=== PATIENT | male | born 1960 | race Caucasian/White ===

== ENCOUNTER 2020-12-20 10:43 | Outpatient (REF) | payer OTHER, SELFPAY ==
--- OUTSIDE RECORDS SUMMARY | 2020-12-20 10:54 | XMS_ITS | Encounter Summary ---
:1960 Author Organization [facility] Address [address] [place] [address] Care Team Providers Name Role Phone MIGNON ESCALERA Primary Care Provider Unavailable Insurance Providers: All historical and current Section Date Range: From patient's date of to the date document was created.This section includes the names of all active insurance providers for the patient. Insurance Type of Plan Start of End of Group Member Insurance Policy P atient's Provider Coverage Name Policy Policy Number ID Provider's Cardenas's Relationship Coverage Coverage Telephone Name to Policy Number Cardenas MEDICARE MEDICARE PART Mar 27, PART B [id number] SAVANNAH MCGOVERN PATIENT (WNR) (M) B 2018 [id number] [place] MEDICARE MEDICARE PART Apr 27, PART A [id number] PATIENT (WNR) (M) A 2005 [id number] RUSSELL JONES -FO TRICA Mar 27, 782 [id number] [phone] PRIES T,SI PATIENT R-LIFE RE 2018 [id number] [place] -FO TFL Mar 27, [id number] [phone] PRIShaye STSI PATIENT R-LIFE 2018 [id number] [place] UNITED MEDICARE MCR(W Sep [id number], [id number] [phone] 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 Date/Time Encounter Type Encounter Reason Provider Source Description Nov 05, 2020 08:56 Outpatient PRIMARY VIJAYA LIU AM Encounter CARE/MEDICINE IHE Encounter Template Text not used by MS Plan of Treatment: Future Appointments (+ 6 months) and Future Tests (+/- 45 days) The Plan of Treatment section includes future care activities for the patient from all [place] treatment facilities. This section includes future appointments and future orders which are active, pending or scheduled.Future Appointments This section includes appointments that were scheduled to occur 6 months from the date of the Encounter, up to a maximum of 20 appointments. The data comes from all [facility]. Appointment Date/Time Appointment Type Appointment Facili ty Name Nov 29, 2020 09:15 AM AMBULATORY - NONE [facility] Dec 04, 2020 08:30 AM AMBULATORY - NONE [facility] Dec 04, 2020 09:00 AM [facility] Dec 27, 2020 08:30 AM AMBULATORY - NONE [facility] Active, Pending, and Scheduled Orders This section includes a listing of several types of active, pending, and scheduled orders, including clinic medications orders, diagnostic test orders, procedure orders and consult orders; where the start date of the order is 45 days before the date of the Encounter or 45 days after the date of the Encounter. The data comes from all [place] treatment facilities. Test Date/Time Test Type Test Details Facility Name Dec 04, 2020 09:41 AM Consult Order [facility] [place] [facility] Lab Results: +/- 30 days of the encounter This section includes the Chemistry and Hematology Lab Results on record with [facility] for the patient. Radiology Reports and Pathology Reports are provided separately, in subsequent sections.Lab Results This section contains the Chemistry/Hematology Results that were resulted 30 days before or 30 days after the date of the Encounter. Date/Time Source Result Type Result - Unit Interpretation Reference Range Comment Oct 23, 2020 [facility] P4 GLU,BUN,CREAT,LYTES,CA Specim en Type: PLASMA 07:56 AM [facility] Comment: Tests performed on [employer] (405) Ordering Provide r: MIGNON ESCALERA Report Released Date/Time: Oct 21, 2020 10:35 AM Reporting Lab: [facility] [address] [facility] [address] Performing Lab: [facility] [address] [address] UREA NITROGEN 9 mg/dL 7-25 SODIUM 139 mmol/L 135-145 POTASSIUM 4.3 mmol/L 3.5-5.0 CHLORIDE 101 mmol/L 100-110 CARBON DIOXIDE 29 mmol/L 20-30 ANION GAP 9 mmol/L 4-16 GLUCOSE 133 mg/dL H 65-100 CREATININE 1.01 mg/dl 0.5-1.5 CALCIUM 9.7 mg/dL 8.5-10.5 eGFR 75 mL/min >60 Oct 23, 2020 07:56 [facility] VIT D 25-OH([facility]) Specimen Typ e: SERUM AM [facility] Comment: Specim en 1+ Hemolysis Tests performed on [employer] (405) Ordering Provide r: MIGNON ESCALERA Report Released Date/Time: Oct 21, 2020 10:35 AM Reporting Lab: [facility] [address] [facility] [address] Performing Lab: [facility] [address] [facility] [address] VIT D 25-OH([facility]) 39.8 ng/mL 20-50 Oct 23, 2020 [place] MICROALBUMIN/CREATININE RATIO Sp ecimen Type: URINE 07:56 AM [facility] PANEL Comment: Tests performed on [employer] (405) Ordering Provide r: MIGNON ESCALERA Report Released Date/Time: Oct 21, 2020 10:35 AM Reporting Lab: [facility] [address] [facility] [address] Performing Lab: [facility] [address] [facility] [address] CREATININE (URINE,RANDOM) 27.2 mg/dL MICROALBUMIN, QUANTITATIVE < 0.1 mg/dL 0 .0-29.9 MICROALBUMIN/CREATININE RATIO canc mg/g 0.0-29.9 Oct 23, 2020 [facility] GLYCOHEMOGLOBIN (A1C Specimen Ty pe: BLOOD 07:56 AM [facility] ONLY) Comment: Tests performed on [employer] (405) Ordering Provide r: MIGNON ESCALERA Report Released Date/Time: Oct 21, 2020 10:35 AM Reporting Lab: [facility] [address] [facility] [address] Performing Lab: [facility] [address] [facility] [address] HEMOGLOBIN A1C 5.6 % 4.0-5.6 Oct 23, 2020 07:56 [place] VITAMIN B-12 Specimen Type : SERUM AM [facility] Comment: Specim en 1+ Hemolysis Tests performed on [employer] (405) Ordering Provide r: MIGNON ESCALERA Report Released Date/Time: Oct 21, 2020 10:35 AM Reporting [facility]: [facility] [address] [facility] [address] Performing Lab: [facility] [address] [facility] [address] VITAMIN B-12 780 pg/mL 200-900 Social History: Smoking Status (Most current) and Tobacco Use (All prior to encounter date) This section includes the most current, and the historical, smoking and tobacco-related health factors from the [place] facility where the Encounter took place.Current Smoking Status This section includes the most current smoking, or tobacco-related health factor, from the [place] facility where the Encounter took place. Date/Time Current Smoking Status Comment Facility Oct 23, 2020 09:01 AM [place]-TOBACCO FOR[place] [facility] Tobacco Use History This section includes a history of the smoking, or tobacco-related health factors, that were collected on or before the date of the Encounter. The data comes from the [place] facility where the Encounter took place. Date/Time Smoking Status/Tobacco Use Comment Earle garcia Oct 23, 2020 09:01 AM VA-TOBACCO QUIT 1 TO < 5 YRS [place] [facility] Oct 26, 2019 09:30 AM VA-TOBACCO FORMER US[place] [facility] Oct 26, 2019 09:30 AM VA-TOBACCO QUIT 1 TO < 5 YRS [place] [facility] Dec 09, 2018 10:48 AM LIFETIME NON-TOBACCO USER [place] [facility] Aug 04, 2018 03:07 PM VA-TOBAC[place] [facility] Aug 04, 2018 03:07 PM VA-TOBACCO QUIT 1 TO < 5 YRS [place] [facility] Oct 05, 2017 10:33 AM CURRENT SMOKER LEORA Lang [facility] 2 ppd Oct 05, 2017 10:33 AM V1-PT READY TO QUIT TOBACCO USE [facility] Oct 20, 2016 09:35 AM QUIT TOBACCO USE 1-7 YEARS AGO [facility] 1.5 ago Nov 05, 2015 01:31 PM QUIT TOBACCO USE 1-7 YEARS AGO [facility] Jul 24, 2014 08:39 AM QUIT TOBACCO USE 1-7 YEARS AGO [facility] Jul 28, 2013 09:49 AM QUIT TOBACCO USE 1-7 YEARS AGO [facility] Oct 26, 2012 12:34 PM QUIT TOBACCO USE IN PAST YEAR [facility] Sep 29, 2011 08:35 AM QUIT TOBACCO USE 1-7 YEARS AGO [facility] February 10, 2011 02:44 PM QUIT TOBACCO USE IN PAST YEAR [facility] Advance Directives: All historical and current Section Date Range: From patient's date of to the date document was created. This section includes ALL of a patient's completed or amended [place] Advance and Rescinded Directives. The entries below indicate that a directive exists for the patient, but an actual copy is not included with this document. The data comes from all [place] facilities. Date Advance Directives Provider Source Nov 29, 2017 ADVANCE DIRECTIVE RUBIN ABDUL [facility] Radiology Reports: +/- 30 days of the encounter Radiology Reports For cases when an order for radiology services may have been completed prior tothe date of the Encounter, the report list includes the Radiology Reports that were completed up to 30 days before date of the Encounter. For cases when an order for radiology services may have been completed after the date of the Encounter, the report list also includes the Radiology Reports that were completed up to 30 days after date of the Encounter. The data comes from all [place] treatment facilities. Date/Time Radiology Report Provider Source Dec 04, 2020 08:30 AM LDCT LUNG CANCER SCREENING: PRAKASH MELCHOR [facility] RUSSELL MCGOVERN [id number] [phone] [facility] Exm Date: DEC 04, 2020@08:30 Req Phys: MAURILIO-SUICH,CAR OL ROMAIN Pat Loc: [facility] GERIPACT 6 G M2RE (Req'g L Img Loc : CT SCAN (OOS) Service : Unknown (Case [id number] COMPLETE) LDCT L [place] CANCER SCREENING (CT Detailed) CPT:54877 Reason for Study: smoker 40ppy Clinical History: No contrast allergy BUN: 9 (10/23/20 07:56) CREATI: 1.01 (10/23/20 07:56) eGFR 10/23/20 07:56 75 Weight: 175 lb [79.5 kg] (10/26/2019 08:39 ) BODY MASS INDEX - OCT 26, 2019@08:39:14 26.7 Report Status: Verified Da te Reported: DEC 04, 2020 Da te Verified: DEC 04, 2020 Pharmacologist E-Sig:/ES/TERRI MELCHOR Report: Description: Low-dose Chest CT for lung c ancer screening Indication: smoker 40ppy. Technique: CT Chest was performed with 1 m m and 3 mm images without IV contrast. Examination dose: 105.9 mGy-cm Comparison: 03/11/2011 Findings: Nodules: No pulmonary nodules. Other lung findings: Mild scattered linear atelectasis/scarring in the right middle lobe, left lingula and left lower lobe. Airways: Normal caliber. No obstructing le suman. Mediastinum: No lymphadenopathy. Cardiac: Mild calcifications of the moore ry arteries. Pleura: No effusion. Visualized upper abdomen: Low-attenuation of the liver consistent with fatty infiltration. Remaining soft ti ssues tissues in the upper abdomen are unremarkable. Bones: No acute bony abnormality. Other findings: None. Impression: 1. Lung-RADS category 1, negative. Recomm end continued annual screening with low-dose CT in 12 months pe r Lung-RADS 1.1. Primary Diagnostic Code: LUNGRADS 1: NEGATIV E Primary Interpreting Staff: TERRI MELCHOR, Radiologist (Pharmacologist) /KTL Encounter Notes: All associated encounter notes This section contains the clinical notes associated to the Encounter. Date/Time Encounter Note(s) Provider Source Nov 05, 2020 08:56 AM PRIMARY CARE SECURE MESSAGING: VIJAYA LIU [facility] LOCAL TITLE: PRIMARY CARE SECURE MESSAGING STANDARD TITLE: PRIMARY CARE SECURE MESSAGING DATE OF NOTE: NOV 05, 2020@08:56 ENTRY DATE: NOV 05, 2020@08:56:43 AUTHOR: VIJAYA LIU EXP COSIGNER: URGENCY: STATUS: COMPLETED ------Original Message Sent: 11/04/2020 10:44 AM From: RUSSELL MCGOVERN To: [email or web address] Subject: the med am taking tell mignon that the guaifenesin that the y are working its helping a lot. thank you. ------Original Message Sent: 11/05/2020 08:56 AM From: VIJAYA LIU To: RUSSELL MCGOVERN Subject: the med am taking Glad to hear that, I will let her know. Vijaya Liu RN F Team 2 /es/ VIJAYA LIU BSN RN Signed: 11/05/2020 08:56 Receipt Acknowledged By: * AWAITING SIGNATURE * COURTNEY ESCALERA
--- OUTSIDE RECORDS SUMMARY | 2020-12-20 10:54 | XMS_ITS | Encounter Summary ---
:1960 Author Organization Department [facility] rs Address [address] [place] [id number] Care Team Providers Name Role Phone NICOLAS ESCALERA Primary Care Provider Unavailable Insurance Providers: [...] MEDICARE MEDICARE PART Mar 27, PART B [id number] SAVANNAH MCGOVERN PATIENT (WNR) (M) B 2018 PQ95 1 [place] MEDICARE MEDICARE PART Apr 27, PART A [id number] PATIENT (WNR) (M) A 2005 PQ95 1 RUSSELL JONES -FO TRICA Mar 27, 236 [id number] [phone] PRILULU TSI PATIENT R-LIFE RE 2018 [id number] [place] -FO TFL Mar 27, [id number] [phone] PRIShaye MACIASSI PATIENT R-LIFE 2018 [id number] [place] UNITED MEDICARE MCR(W Sep 27, [id number] [phone] 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 Date/Time Encounter Type Encounter Reason Provider Source Description Oct 28, 2020 HEARING AID AUDIOLOGY ICD-10-CM Z46.1 CONNIE SOLOMON 09:15 AM SUP/ACCESS/DEV Encounter for fitting and adjustment of hearing aid with Provider Comments: Encounter for Fitting and Adjustment of Hearing Aid IHE Encounter Template Text not used by [facility] Assessments - Encounter Diagnoses This section includes the primary and secondary diagnoses documented forthe Encounter. Date/Time Primary/Secondary Diagnosis Name Provider Source Diagnosis Oct 28, 2020 PRIMARY Encounter for CONNIE SOLOMON 10:09 AM fitting and [facility] adjustment of hearing aid Oct 28, 2020 SECONDARY Sensorineural CONNIE SOLOMON 10:09 AM hearing loss, [facility] bilateral Plan of Treatment: Future Appointments (+ 6 months) and Future Tests (+/- 45 days) The Plan of Treatment section includes future care activities for the patient from all [place] treatment facilities. This section includes future appointments and future orders which are active, pending or scheduled.Future Appointments This section includes appointments that were scheduled to occur 6 months from the date of the Encounter, up to a maximum of 20 appointments. The data comes from all [facility]. Appointment Date/Time Appointment Type Appointment Facili ty Name Nov 29, 2020 09:15 AM AMBULATORY - NONE [facility] Dec 04, 2020 08:30 AM AMBULATORY - NONE [facility] Dec 04, 2020 09:00 AM AMBULATORY - SURGERY [facility] Dec 27, 2020 08:30 AM AMBULATORY - NONE [facility] Active, Pending, and Scheduled Orders This section includes a listing of several types of active, pending, and scheduled orders, including clinic medications orders, diagnostic test orders, procedure orders and consult orders; where the start date of the order is 45 days before the date of the Encounter or 45 days after the date of the Encounter. The data comes from all [place] treatment facilities. Test Date/Time Test Type Test Details Facility Name Dec 04, 2020 09:41 AM Consult Order SLEEP CLINIC OUTPATIENT WH ITE [facility] Cons Book Coverer's Choice Surgical Procedures: All associated to the encounter This section includes all Surgical Procedures and Surgical Procedure Notes associated to the Encounter.Surgical Procedures This section includes all Surgical Procedures associated to the Encounter.Surgical Procedure Date/Time Procedure Procedure Type Procedure Provider Source Qualifiers Oct 28, 2020 Hearing Aid or HEARING AID CONNIE SOLOMON 09:15 AM Assistive SUP/ACCESS/DEV A [facility] Listening Device/Supplies /Accessories, not otherwise specified Surgical Notes There are no notes associated with this procedure. Surgical Procedure Date/Time Procedure Procedure Type Procedure Provider Source Qualifiers Oct 28, 2020 Repair/Modifica HEARING AID CONNIE SOLOMON 09:15 AM tion of a [facility] G Surgical Notes There are no notes associated with this procedure. Surgical Procedure Date/Time Procedure Procedure Type Procedure Provider Source Qualifiers Oct 28, 2020 Fitting/Orienta HEARING AID CONNIE SOLOMON 09:15 AM tion/Checking FITTING/CHECKIN A [facility] of Hearing Aid G Surgical Notes There are no notes associated with this procedure. Lab Results: +/- 30 days of the encounter This section includes the Chemistry and Hematology Lab Results on record with [facility] for the patient. Radiology Reports and Pathology Reports are provided separately, in subsequent sections.Lab Results This section contains the Chemistry/Hematology Results that were resulted 30 days before or 30 days after the date of the Encounter. Date/Time Source Result Type Result - Unit Interpretation Reference Range Comment Oct 23, 2020 [facility] P4 GLU,BUN,CREAT,LYTES,CA Specim en Type: PLASMA 07:56 AM [facility] Comment: Tests performed on [employer] (405) Ordering Provide r: NICOLAS ESCALERA Report Released Date/Time: Oct 21, 2020 10:35 AM Reporting Lab: [facility] [address] [address] Performing Lab: [facility] [address] [address] UREA NITROGEN 9 mg/dL 7-25 SODIUM 139 mmol/L 135-145 POTASSIUM 4.3 mmol/L 3.5-5.0 CHLORIDE 101 mmol/L 100-110 CARBON DIOXIDE 29 mmol/L 20-30 ANION GAP 9 mmol/L 4-16 GLUCOSE 133 mg/dL H 65-100 CREATININE 1.01 mg/dl 0.5-1.5 CALCIUM 9.7 mg/dL 8.5-10.5 eGFR 75 mL/min >60 Oct 23, 2020 07:56 [place] VIT D 25-OH(WRJ) Specimen Typ e: SERUM [facility] Comment: Specim en 1+ Hemolysis Tests performed on [employer] (405) Ordering Provide r: NICOLAS ESCALERA Report Released Date/Time: Oct 21, 2020 10:35 AM Reporting Lab: [place] [facility] [address] [address] Performing Lab: [facility] [address] [address] VIT D 25-OH([facility]) 39.8 ng/mL 20-50 Oct 23, 2020 [place] MICROALBUMIN/CREATININE RATIO Sp ecimen Type: URINE 07:56 AM [place] [facility] PANEL Comment: Tests performed on [employer] (405) Ordering Provide r: NICOLAS ESCALERA Report Released Date/Time: Oct 21, 2020 10:35 AM Reporting Lab: [facility] [address] [address] Performing Lab: [facility] [address] [facility] [place] [address] CREATININE (URINE,RANDOM) 27.2 mg/dL MICROALBUMIN, QUANTITATIVE < 0.1 mg/dL 0 .0-29.9 MICROALBUMIN/CREATININE RATIO canc mg/g 0.0-29.9 Oct 23, 2020 [facility] GLYCOHEMOGLOBIN (A1C Specimen Ty pe: BLOOD 07:56 [facility] ONLY) Comment: Tests performed on [employer] (405) Ordering Provide r: NICOLAS ESCALERA Report Released Date/Time: Oct 21, 2020 10:35 AM Reporting Lab: [place] [facility] [address] [facility] [place] [address] Performing Lab: [facility] [address] [address] HEMOGLOBIN A1C 5.6 % 4.0-5.6 Oct 23, 2020 07:56 [facility] VITAMIN B-12 Specimen Type : SERUM [facility] Comment: Specim en 1+ Hemolysis Tests performed on [employer] (405) Ordering Provide r: NICOLAS ESCALERA Report Released Date/Time: Oct 21, 2020 10:35 AM Reporting Lab: [place] [facility] [address] [address] Performing Lab: [place] [place] [facility] [address] [address] VITAMIN B-12 780 pg/mL 200-900 Social History: Smoking Status (Most current) and Tobacco Use (All prior to encounter date) This section includes the most current, and the historical, smoking and tobacco-related health factors from the [place] facility where the Encounter took place.Current Smoking Status This section includes the most current smoking, or tobacco-related health factor, from the [place] facility where the Encounter took place. Date/Time Current Smoking Status Comment Facility Oct 23, 2020 09:01 AM VA-TOBACCO FORMER USER Mike ELIZALDE [facility] Tobacco Use History This section includes a history of the smoking, or tobacco-related health factors, that were collected on or before the date of the Encounter. The data comes from the [place] facility where the Encounter took place. Date/Time Smoking Status/Tobacco Use Comment [facility] Oct 23, 2020 09:01 AM VA-TOBACCO QUIT 1 TO < 5 YRS [facility]A HE T [facility] Oct 26, 2019 09:30 AM VA-TOBACCO FORMER USER DELGADO ELIZALDE T [facility] Oct 26, 2019 09:30 AM VA-TOBACCO QUIT 1 TO < 5 YRS [facility] T [facility] Dec 09, 2018 10:48 AM LIFETIME NON-TOBACCO USER [facility] HE T [facility] Aug 04, 2018 03:07 PM VA-TOBACCO FORMER USER DELGADO ELIZALDE T [facility] Aug 04, 2018 03:07 PM VA-TOBACCO QUIT 1 TO < 5 YRS [facility] HE T [facility] Oct 05, 2017 10:33 AM CURRENT SMOKER [facility]A Lang T [facility] 2 ppd Oct 05, 2017 10:33 AM V1-PT READY TO QUIT TOBACCO USE [facility] T [facility] Oct 20, 2016 09:35 AM QUIT TOBACCO USE 1-7 YEARS AGO [facility] HE T [facility] 1.5 ago Nov 05, 2015 01:31 PM QUIT TOBACCO USE 1-7 YEARS AGO [facility] HE T [facility] Jul 24, 2014 08:39 AM QUIT TOBACCO USE 1-7 YEARS AGO [facility] HE T [facility] Jul 28, 2013 09:49 AM QUIT TOBACCO USE 1-7 YEARS AGO [facility] HE [facility] Oct 26, 2012 12:34 PM QUIT TOBACCO USE IN PAST YEAR [facility] HE [facility] Sep 29, 2011 08:35 AM QUIT TOBACCO USE 1-7 YEARS AGO LEORA [facility] February 10, 2011 02:44 PM QUIT TOBACCO USE IN PAST YEAR [facility] HE [facility] Advance Directives: All historical and current Section Date Range: From patient's date of to the date document was created. This section includes ALL of a patient's completed or amended [place] Advance and Rescinded Directives. The entries below indicate that a directive exists for the patient, but an actual copy is not included with this document. The data comes from all [place] facilities. Date Advance Directives Provider Source Nov 29, 2017 ADVANCE DIRECTIVE RUBIN ABDUL [place] [facility] Encounter Notes: All associated encounter notes This section contains the clinical notes associated to the Encounter. 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 Otoscopy was unremarkable bilaterally. Visual inspection of the right hearing aid revea led aid to have debris in the domes. Cleaned aid, brushed mics, changed dome, and changed wax filter. Listening check revealed aid to sound appropriat e for the 's hearing loss. Programming adjustments were made updating heari ng aids with last session settings. Firmware updated in right aid. 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 Re-paired hearing aids to iPhone and bettina. Left h earing aid low in battery and will need to be charged when he gets home. Order nathan piper. PROCEDURES COMPLETED: Otoscopy Check of two hearing aids Programming with patient input VIEIRA repair/modification (Monaural) Additional Supplies/Accessories Ordered PLAN: -Order Nathan piper -f/u per request /lulu/ Gertrudis Rubio [facility]A Staff Marble Mason Signed: 10/28/2020 10:09
--- OUTSIDE RECORDS SUMMARY | 2020-12-20 10:54 | XMS_ITS | Encounter Summary ---
:1960 Author Organization Department [facility] rs Address [address] [place] [id number] Care Team Providers Name Role Phone NICOLAS [...] MEDICARE MEDICARE PART Mar 27, PART B [id number] SAVANNAH MCGOVERN PATIENT (WNR) (M) B 2018 PQ95 1 [place] MEDICARE MEDICARE PART Apr 27, PART A [id number] PATIENT (WNR) (M) A 2005 PQ95 1 RUSSELL JONES -FO TRICA Mar 27, 183 [id number] [phone] PRILULU TSI PATIENT R-LIFE RE 2018 [id number] [place] -FO TFL Mar 27, [id number] [phone] STEPHENIE MACIASSI PATIENT R-LIFE 2018 [id number] [place] UNITED MEDICARE MCR(W Sep 27, [id number] [phone] 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 Date/Time Encounter Type Encounter Reason Provider Source Description Nov 29, 2020 ADM SARSCOV2 GENERAL INTERNAL ICD-10-CM Z23 KHADIJAH ZAMORA 09:15 AM 100MCG/0.5ML1ST MEDICINE Encounter for R S immunization with Provider Comments: Encounter for Immunization IHE Encounter Template Text not used by [facility] Assessments - Encounter Diagnoses This section includes the primary and secondary diagnoses documented forthe Encounter. Date/Time Primary/Secondary Diagnosis Name Provider Source Diagnosis Nov 29, 2020 PRIMARY Encounter for MELODY ZAMORA 03:05 PM immunization [facility] Plan of Treatment: Future Appointments (+ 6 months) and Future Tests (+/- 45 days) The Plan of Treatment section includes future care activities for the patient from all [place] treatment facilities. This section includes future appointments and future orders which are active, pending or scheduled.Future Appointments This section includes appointments that were scheduled to occur 6 months from the date of the Encounter, up to a maximum of 20 appointments. The data comes from all [facility]. Appointment Date/Time Appointment Type Appointment Facili ty Name Dec 04, 2020 08:30 AM AMBULATORY - NONE [facility] Dec 04, 2020 09:00 AM AMBULATORY - SURGERY [facility] Dec 27, 2020 08:30 AM AMBULATORY - NONE [facility] Active, Pending, and Scheduled Orders This section includes a listing of several types of active, pending, and scheduled orders, including clinic medications orders, diagnostic test orders, procedure orders and consult orders; where the start date of the order is 45 days before the date of the Encounter or 45 days after the date of the Encounter. The data comes from all [place] treatment facilities. Test Date/Time Test Type Test Details Facility Name Dec 04, 2020 09:41 AM Consult Order SLEEP CLINIC OUTPATIENT ITE [facility] Cons Strings Teacher's Choice Surgical Procedures: All associated to the encounter This section includes all Surgical Procedures and Surgical Procedure Notes associated to the Encounter.Surgical Procedures This section includes all Surgical Procedures associated to the Encounter.Surgical Procedure Date/Time Procedure Procedure Type Procedure Provider Source Qualifiers Nov 29, 2020 ADM SARSCOV2 ADM SARSCOV2 [place] 09:15 AM 100MCG/0.5ML1ST 100MCG/0.5ML1ST [facility] Surgical Notes There are no notes associated with this procedure. Immunizations: All administered on the encounter date This section contains immunizations associated to the Encounter. Immunization Series Date Issued Reaction Comments COVID-19 (MODERNA), MRNA, 1 Nov 29, 2020 MO D; [id number]; 05/04/2021 LNP-S, PF, 100 MCG/0.5 ML DOSE Advance Directives: All historical and current Section Date Range: From patient's date of to the date document was created. This section includes ALL of a patient's completed or amended [facility] Advance and Rescinded Directives. The entries below indicate that a directive exists for the patient, but an actual copy is not included with this document. The data comes from all [place] facilities. Date Advance Directives Provider Source Nov 29, 2017 ADVANCE DIRECTIVE RUBIN ABDUL [facility] Radiology Reports: +/- 30 days of [...] the Encounter. The data comes from all [place] treatment facilities. Date/Time Radiology Report Provider Source Dec 04, 2020 08:30 AM LDCT LUNG CANCER SCREENING: PRAKASH [facility]OR [facility] RUSSELL MCGOVERN [id number] -1960 [facility] Exm Date: DEC 04, 2020@08:30 Req Phys: MAURILIO-SUICH,CAR OL ROMAIN Pat Loc: [facility] GERIPACT 6 G M2RE (Req'g L Img Loc : CT SCAN (OOS) Service : Unknown (Case [id number] COMPLETE) LDCT L RENETTA CANCER SCREENING (CT Detailed) CPT:04472 Reason for Study: smoker 40ppy Clinical History: No contrast allergy BUN: 9 (10/23/20 07:56) CREATI: 1.01 (10/23/20 07:56) eGFR 10/23/20 07:56 75 Weight: 175 lb [79.5 kg] (10/26/2019 08:39 ) BODY MASS INDEX - OCT 26, 2019@08:39:14 26.7 Report Status: Verified Da te Reported: DEC 04, 2020 Da te Verified: DEC 04, 2020 Core Winder E-Sig:/ES/TERRI MELCHOR Report: Description: Low-dose Chest CT [...] E Primary Interpreting Staff: TERRI MELCHOR, Radiologist (Tracee) /KTL Encounter Notes: All associated encounter notes This section contains the clinical notes associated to the Encounter. Date/Time Encounter Note(s) Provider Source Nov 29, 2020 03:04 PM NURSING IMMUNIZATION NOTE: MELODY ZAMORA [facility] LOCAL TITLE: VAAES NSG COVID-19 VACCINE ADMINIS TRATION CB STANDARD TITLE: NURSING IMMUNIZATION NOTE DATE OF NOTE: NOV 29, 2020@15:04 ENTRY DATE: NOV 29, 2020@15:04:47 AUTHOR: MELODY ZAMORA EXP COSIGNER: URGENCY: STATUS: COMPLETED The patient was given the EUA fact sheet for thi s vaccine which lists the benefits and side effects of the vaccine and [facility] reviews the risks of the vaccine. The fact sheet was reviewed with the tito van and they were given an opportunity to ask questions. The patient denied any prior severe reaction to this vaccine or its components or a severe aller gic reaction such as anaphylaxis to any vaccine or to any injectable therapy. The patient gave verbal consent to receive the vaccine. Dose #1 The patient received Moderna COVID-19 Vaccine 0. 5 ml IM. MVX (Manuf); Lot#; Exp Date: MOD; [id number]; 04/2021 Administration Anatomic site: Left Deltoid Vaccine administered without complications. Th e patient was advised to remain in the facility for 15 minutes post vaccination. The patient was given a completed COVID-19 vaccination record card, a copy of the [facility] Side Effects and Adverse Events Reporting Fact She et and instructed on how to report any adverse reactions.The tony ent was given information on the need to return for another dose of vaccine in 28 days. Vaccine administered by policy/protocol. /es/ MELODY ADAMES RN Signed: 11/29/2020 15:05
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
--- OUTSIDE RECORDS SUMMARY | 2020-12-20 10:54 | XMS_ITS | Encounter Summary ---
:1960 Author Organization [facility] Address [address] [place] [address] Care Team Providers Name Role Phone MIGNON [...] MEDICARE MEDICARE PART Mar 27, PART B [id number] SAVANNAH MCGOVERN PATIENT (WNR) (M) B 2018 PQ95 1 DNEY MEDICARE MEDICARE PART Apr 27, PART A [id number] PATIENT (WNR) (M) A 2005 PQ95 1 SOCO JONES -FO TRICA Mar 27, [id number] [phone] PRIES T,SI PATIENT R-LIFE RE 2018 [id number] DNEY -FO TFL Mar 27, [id number] [phone] PRIShaye STSI PATIENT R-LIFE 2018 [id number] DNEY UNITED MEDICARE MCR(W Sep 27, [id number] [phone] BIG DATA ANALYTICS LEAD,S I PATIENT HEALTHCARE ADVANTAGE NR) 2019 82 0 DNEY MCR (WNR) Selected Encounter This section includes the information on record at [place] for the Encounter. Date/Time Encounter Type Encounter Reason Provider Source Description Nov 26, 2020 12:59 Outpatient PRIMARY DIANNA DALLAS Encounter CARE/MEDICINE IHE Encounter Template Text not used by [place] Plan of Treatment: Future Appointments (+ 6 months) and Future Tests (+/- 45 days) The Plan of Treatment section includes future care activities for the patient from all [place] treatment facilities. This section includes future appointments and future orders which are active, pending or scheduled.Future Appointments This section includes appointments that were scheduled to occur 6 months from the date of the Encounter, up to a maximum of 20 appointments. The data comes from all [facility]. Appointment Date/Time Appointment Type Appointment Facili ty Name Nov 29, 2020 09:15 AM AMBULATORY - NONE [facility] Dec 04, 2020 08:30 AM AMBULATORY - NONE [facility] Dec 04, 2020 09:00 AM AMBULATORY - SURGERY [facility] Dec 27, 2020 08:30 AM AMBULATORY - NONE [facility] Active, Pending, and Scheduled Orders This section includes a listing of several types of active, pending, and scheduled orders, including clinic medications orders, diagnostic test orders, procedure orders and consult orders; where the start date of the order is 45 days before the date of the Encounter or 45 days after the date of the Encounter. The data comes from all [place] treatment [facility]. Test Date/Time Test Type Test Details Facility Name Dec 04, 2020 09:41 AM Consult Order SLEEP CLINIC OUTPATIENT [facility] Cons Door Fitter's Choice Social History: Smoking Status (Most current) and Tobacco Use (All prior to encounter date) This section includes the most current, and the historical, smoking and tobacco-related health factors from the [place] facility where the Encounter took place.Current Smoking Status This section includes the most current smoking, or tobacco-related health factor, from the [place] facility where the Encounter took place. Date/Time Current Smoking Status Comment Facility Oct 23, 2020 09:01 AM VA-TOBACCO FORMER USER [facility] Tobacco Use History This section includes a history of the smoking, or tobacco-related health factors, that were collected on or before the date of the Encounter. The data comes from the [place] facility where the Encounter took place. Date/Time Smoking Status/Tobacco Use Comment Facil ity Oct 23, 2020 09:01 AM VA-TOBACCO QUIT 1 TO < 5 YRS [facility] HE T [facility] Oct 26, 2019 09:30 AM VA-TOBACCO FORMER USER DELGADO JIMENEZT [facility] Oct 26, 2019 09:30 AM VA-TOBACCO QUIT 1 TO < 5 YRS [facility] HE T [facility] Dec 09, 2018 10:48 AM LIFETIME NON-TOBACCO USER [facility] HE T [facility] Aug 04, 2018 03:07 PM VA-TOBACCO FORMER USER [place]O JIMENEZT [facility] Aug 04, 2018 03:07 PM VA-TOBACCO QUIT 1 TO < 5 YRS [facility] HE T [facility] Oct 05, 2017 10:33 AM CURRENT SMOKER LEORA Lang [facility] 2 ppd Oct 05, 2017 10:33 AM V1-PT READY TO QUIT TOBACCO USE [facility] HE T [facility] Oct 20, 2016 09:35 AM QUIT TOBACCO USE 1-7 YEARS AGO [facility] HE T [facility] 1.5 ago Nov 05, 2015 01:31 PM QUIT TOBACCO USE 1-7 YEARS AGO [facility] HE T [facility] Jul 24, 2014 08:39 AM QUIT TOBACCO USE 1-7 YEARS AGO [facility] HE T [facility] Jul 28, 2013 09:49 AM QUIT TOBACCO USE 1-7 YEARS AGO [facility] HE T [facility] Oct 26, 2012 12:34 PM QUIT TOBACCO USE IN PAST YEAR [facility] HE T [facility] Sep 29, 2011 08:35 AM QUIT TOBACCO USE 1-7 YEARS AGO [facility] HE T [facility] February 10, 2011 02:44 PM QUIT TOBACCO USE IN PAST YEAR [facility] HE [facility] Advance Directives: All historical and current Section Date Range: From patient's date of to the date document was created. This section includes ALL of a patient's completed or amended [place] Advance and Rescinded Directives. The entries below indicate that a directive exists for the patient, but an actual copy is not included with this document. The data comes from all [place] facilities. Date Advance Directives Provider Source Nov 29, 2017 ADVANCE DIRECTIVE RUBIN ABDUL [facility] Radiology Reports: +/- 30 days of [...] the Encounter. The data comes from all [place] treatment facilities. Date/Time Radiology Report Provider Source Dec 04, 2020 08:30 AM LDCT LUNG CANCER SCREENING: PRAKASH MELCHOR [facility] HE SOCO TOMPKINS [id number] -1960 M [facility] Exm Date: DEC 04, 2020@08:30 Req Phys: MAURILIO-SUICH,CAR OL ROMAIN Pat Loc: [facility] GERIPACT 6 G M2RE (Req'g L Img Loc : CT SCAN (OOS) Service : Unknown (Case [id number] COMPLETE) LDCT L RENETTA CANCER SCREENING (CT Detailed) CPT:97450 Reason for Study: smoker 40ppy Clinical History: No contrast allergy BUN: 9 (10/23/20 07:56) CREATI: 1.01 (10/23/20 07:56) eGFR 10/23/20 07:56 75 Weight: 175 lb [79.5 kg] (10/26/2019 08:39 ) BODY MASS INDEX - OCT 26, 2019@08:39:14 26.7 Report Status: Verified Da te Reported: DEC 04, 2020 Da te Verified: DEC 04, 2020 Monitor Car Operator E-Sig:/ES/TERRI MELCHOR Report: Description: Low-dose Chest CT [...] E Primary Interpreting Staff: TERRI MELCHOR, Radiologist (Monitor Car Operator) /KTL Encounter Notes: All associated encounter notes This section contains the clinical notes associated to the Encounter. Date/Time Encounter Note(s) Provider Source Nov 26, 2020 12:59 PM PRIMARY CARE SECURE MESSAGING: DIANNA DALLAS [facility] LOCAL TITLE: PRIMARY CARE SECURE MESSAGING [facility] STANDARD TITLE: PRIMARY CARE SECURE MESSAGING DATE OF NOTE: NOV 26, 2020@12:59:25 ENTRY DATE: NOV 26, 2020@12:59:26 AUTHOR: DIANNA DALLAS EXP COSIGNER: URGENCY: STATUS: COMPLETED ------Original Message Sent: 11/26/2020 05:59 AM From: SOCO MCGOVERN To: [email or web address] Subject: covid-19 vaccine I wanted to give and up date to mignon that i got and update email from the pa that they having a clinic in [place] for the vaccine .i am going there wednesday to get my shot.just wanted to let her know. thank you. from soco rogel r /trish/ DIANNA DALLAS Staff Nurse Signed: 11/26/2020 12:59 Receipt Acknowledged By: * AWAITING SIGNATURE * COURTNEY ESCALERA
--- OUTSIDE RECORDS SUMMARY | 2020-12-20 10:55 | XMS_ITS | Encounter Summary ---
:1960 Author Organization Department [facility] rs Address [address] [place] [id number] Care Team Providers Name Role Phone NICOLAS [...] MEDICARE MEDICARE PART Mar 27, PART B [id number] SAVANNAH MCGOVERN PATIENT (WNR) (M) B 2018 PQ95 1 DNEY MEDICARE MEDICARE PART Apr 27, PART A [id number] PATIENT (WNR) (M) A 2005 PQ95 1 RUSSELL JONES -FO TRICA Mar 27, [id number] [id number] [phone] PRILULU TSI PATIENT R-LIFE RE 2018 [id number] DNEY -FO TFL Mar 27, [id number] [phone] PRIShaye MACIASSI PATIENT R-LIFE 2018 [id number] DNEY UNITED MEDICARE MCR(W Sep 27, [id number] [phone] [employer],S I PATIENT HEALTHCARE ADVANTAGE NR) 2019 82 0 DNEY MCR (WNR) Selected Encounter This section includes the information on record at [place] for the Encounter. Date/Time Encounter Type Encounter Description Reason Provider Source Sep 25, 2020 01:17 Outpatient Encounter AUDIOLOGY PM IHE Encounter Template Text not used by DE Plan of Treatment: Future Appointments (+ 6 months) and Future Tests (+/- 45 days) The Plan of Treatment section includes future care activities for the patient from all [place] treatment facilities. This section includes future appointments and future orders which are active, pending or scheduled.Future Appointments This section includes appointments that were scheduled to occur 6 months from the date of the Encounter, up to a maximum of 20 appointments. The [facility] Appointment Date/Time Appointment Type Appointment Facili ty Name Oct 23, 2020 09:01 AM AMBULATORY - MEDICINE [facility] Oct 28, 2020 09:15 AM AMBULATORY - [facility]IC[facility] Nov 29, 2020 09:15 AM AMBULATORY - NONE [facility] Dec 04, 2020 08:30 AM [facility] [place] [facility] Dec 04, 2020 09:00 AM AMBULATORY - SURGERY [facility] Dec 27, 2020 08:30 AM AMBULATORY - NONE [facility] Lab Results: +/- 30 days of the encounter This section includes the Chemistry and Hematology Lab Results on record with [place] for the patient. Radiology Reports and Pathology Reports are provided separately, in subsequent sections.Lab Results This section contains the Chemistry/Hematology Results that were resulted 30 days before or 30 days after the date of the Encounter. Date/Time Source Result Type Result - Unit Interpretation Reference Range Comment Oct 23, 2020 [facility] P4 GLU,BUN,CREAT,LYTES,CA Specim en Type: PLASMA 07:56 AM [facility] Comment: Tests performed on Elder High Value Associate (405) Ordering Provide r: NICOLAS ESCALERA Report Released Date/Time: Oct 21, 2020 10:35 AM Reporting Lab: [facility] [address] [facility] [address] Performing Lab: [facility] [address] [facility] [address] UREA NITROGEN 9 mg/dL 7-25 SODIUM 139 mmol/L 135-145 POTASSIUM 4.3 mmol/L 3.5-5.0 CHLORIDE 101 mmol/L 100-110 CARBON DIOXIDE 29 mmol/L 20-30 ANION GAP 9 mmol/L 4-16 GLUCOSE 133 mg/dL H 65-100 CREATININE 1.01 mg/dl 0.5-1.5 CALCIUM 9.7 mg/dL 8.5-10.5 eGFR 75 mL/min >60 Oct 23, 2020 07:56 [facility] VIT D 25-OH(J) Specimen Typ e: SERUM AM [facility] Comment: Specim en 1+ Hemolysis Tests performed on Elder High Value Associate (405) Ordering Provide r: NICOLAS ESCALERA Report Released Date/Time: Oct 21, 2020 10:35 AM Reporting [facility]: [facility] [address] [facility] [address] Performing [facility]: [facility] [address] [facility] [address] VIT D 25-OH([facility]) 39.8 ng/mL 20-50 Oct 23, 2020 RANG[facility] MICROALBUMIN/CREATININE RATIO Sp ecimen Type: URINE 07:56 AM [facility] PANEL Comment: Tests performed on Elder High Value Associate (405) Ordering Provide r: NICOLAS ESCALERA Report Released Date/Time: Oct 21, 2020 10:35 AM Reporting Lab: [facility] [address] [facility] [address] Performing [facility]: [facility] [address] [facility] [address] CREATININE (URINE,RANDOM) 27.2 mg/dL MICROALBUMIN, QUANTITATIVE < 0.1 mg/dL 0 .0-29.9 MICROALBUMIN/CREATININE RATIO canc mg/g 0.0-29.9 Oct 23, 2020 [facility] GLYCOHEMOGLOBIN (A1C Specimen Ty pe: BLOOD 07:56 AM [facility] Comment: Tests performed on Elder High Value Associate (405) Ordering Provide r: NICOLAS ESCALERA Report Released Date/Time: Oct 21, 2020 10:35 AM Reporting Lab: [facility] [address] [facility] [address] Performing Lab: [facility] [address] [facility] [address] HEMOGLOBIN A1C 5.6 % 4.0-5.6 Oct 23, 2020 07:56 [facility] VITAMIN B-12 Specimen Type : SERUM AM [facility] Comment: Specim en 1+ Hemolysis Tests performed on Elder High Value Associate (405) Ordering Provide r: NICOLAS ESCALERA Report Released Date/Time: Oct 21, 2020 10:35 AM Reporting Lab: [facility] [address] [facility] [address] Performing Lab: [facility] [address] [facility] [address] VITAMIN B-12 780 pg/mL 200-900 Social History: Smoking Status (Most current) and Tobacco Use (All prior to encounter date) This section includes the most current, and the historical, smoking and tobacco-related health factors from the DE facility where the Encounter took place.Current Smoking Status This section includes the most current smoking, or tobacco-related health factor, from the [place] facility where the Encounter took place. Date/Time Current Smoking Status Comment Facility Oct 26, 2019 09:30 AM VA-TOBACCO QUIT 1 TO < 5 YRS [facility] Tobacco Use History This section includes a history of the smoking, or tobacco-related health factors, that were collected on or before the date of the Encounter. The data comes from the [place] facility where the Encounter took place. Date/Time Smoking Status/Tobacco Use Comment [facility] Oct 26, 2019 09:30 AM VA-TOBACCO QUIT 1 TO < 5 YRS [facility] Dec 09, 2018 10:48 AM LIFETIME NON-TOBACCO USER [facility] Aug 04, 2018 03:07 PM VA-TOBACCO FORMER USER [facility] Aug 04, 2018 03:07 PM VA-TOBACCO QUIT 1 TO < 5 YRS [facility] Oct 05, 2017 10:33 AM CURRENT SMOKER [facility] Lang [facility] 2 ppd Oct 05, 2017 10:33 AM V1-PT READY TO QUIT TOBACCO USE [facility] Oct 20, 2016 09:35 AM QUIT TOBACCO USE 1-7 YEARS AGO [facility] 1.5 ago Nov 05, 2015 01:31 PM QUIT TOBACCO USE 1-7 YEARS AGO [facility] Jul 24, 2014 08:39 AM QUIT TOBACCO USE 1-7 YEARS AGO [facility] Jul 28, 2013 09:49 AM QUIT TOBACCO USE 1-7 YEARS AGO [facility] Oct 26, 2012 12:34 PM QUIT TOBACCO USE IN PAST YEAR [facility] Sep 29, 2011 08:35 AM QUIT TOBACCO USE 1-7 YEARS AGO [facility] February 10, 2011 02:44 PM QUIT TOBACCO USE IN PAST YEAR [facility] HE Gonzalez [facility] Advance Directives: All historical and current Section Date Range: From patient's date of to the date document was created. This section includes ALL of a patient's completed or amended [place] Advance and Rescinded Directives. The entries below indicate that a directive exists for the patient, but an actual copy is not included with this document. The data comes from all [place] facilities. Date Advance Directives Provider Source Nov 29, 2017 ADVANCE DIRECTIVE CHANTELL,RUBIN [facility] Encounter Notes: All associated encounter notes This section contains the clinical notes associated to the Encounter. Date/Time Encounter Note(s) Provider Source Sep 25, 2020 01:18 PM AUDIOLOGY NOTE: CONNIE SOLOMON LOCAL TITLE: Audiology Note [facility] STANDARD TITLE: AUDIOLOGY NOTE DATE OF NOTE: SEP 25, 2020@13:18 ENTRY DATE: SEP 25, 2020@13:18:23 AUTHOR: CONNIE SOLOMON COSIGNER: URGENCY: STATUS: COMPLETED Audiology Note Has ADDENDA Pt lost his left hearing aid. Can a replacement be ordered? Left L&D ordered. RTC placed for 4 weeks for pro gramming of aids /lulu/ Gertrudis Rubio Staff Side Seam Tender Signed: 09/25/2020 13:19 10/03/2020 ADDENDUM STATUS: COMPLETED L&D aid arrived. On desk. /Gertrudis Acosta Staff Side Seam Tender Signed: 10/03/2020 10:11
--- OUTSIDE RECORDS SUMMARY | 2020-12-20 10:55 | XMS_ITS ---
:1960 Author Organization Department [facility] rs Address [address] [place] [address] Care Team Providers Name Role Phone LOUISA AUSTIN Primary Care Provider Unavailable Insurance Providers: All [...] MEDICARE MEDICARE PART Mar 27, PART B [id number] SAVANNAH MCGOVERN PATIENT (WNR) (M) B 2018 PQ95 1 DNEY MEDICARE MEDICARE PART Apr 27, PART A [id number] PATIENT (WNR) (M) A 2005 PQ95 1 RUSSELL JONES -FO TRICA Mar 27, [id number] [phone] PRILULU TSI PATIENT R-LIFE RE 2018 [id number] DNEY -FO TFL Mar 27, [id number] [phone] PRIShaye MACIASSI PATIENT R-LIFE 2018 [id number] DNEY UNITED MEDICARE MCR(W Sep 27, [id number] [phone] CERTIFIED ORTHOPTIST,S I PATIENT HEALTHCARE ADVANTAGE NR) 2019 82 0 DNEY MCR (WNR) Selected Encounter This section includes the information on record at [place] for the Encounter. Date/Time Encounter Type Encounter Description Reason Provider Source Oct 15, 2020 03:17 Outpatient Encounter TELEPHONE TRIAGE PM IHE Encounter Template Text not used by PR Plan of Treatment: Future Appointments (+ 6 months) and Future Tests (+/- 45 days) The Plan of Treatment section includes future care activities for the patient from all [place] treatment facilities. This section includes future appointments and future orders which are active, pending or scheduled.Future Appointments This section includes appointments that were scheduled to occur 6 months from the date of the Encounter, up to a maximum of 20 appointments. The [facility] [place] [facility] Appointment Date/Time Appointment Type Appointment Facili ty Name Oct 23, 2020 09:01 AM AMBULATORY - MEDICINE [facility] Oct 28, 2020 09:15 AM AMBULATORY - REHAB MEDICINE [facility] Nov 29, 2020 09:15 AM AMBULATORY - NONE [facility] Dec 04, 2020 08:30 AM [facility] [place] [facility] Dec 04, 2020 09:00 AM AMBULATORY - SURGERY [facility] Dec 27, 2020 08:30 AM AMBULATORY - NONE [facility] Lab Results: +/- 30 days of the encounter This section includes the Chemistry and Hematology Lab Results on record with [place] for the patient. Radiology Reports and Pathology Reports are provided separately, in subsequent sections.Lab Results This section contains the Chemistry/Hematology Results that were resulted 30 days before or 30 days after the date of the Encounter. Date/Time Source Result Type Result - Unit Interpretation Reference Range Comment Oct 23, 2020 [facility] P4 GLU,BUN,CREAT,LYTES,CA Specim en Type: PLASMA 07:56 AM [facility] Comment: Tests performed on Elder Hydrometer Tester (405) Ordering Provide r: LOUISA AUSTIN Report Released Date/Time: Oct 21, 2020 10:35 AM Reporting Lab: [facility] [address] [facility] [address] Performing Lab: [facility] [address] [facility] [address] UREA NITROGEN 9 mg/dL 7-25 SODIUM 139 mmol/L 135-145 POTASSIUM 4.3 mmol/L 3.5-5.0 CHLORIDE 101 mmol/L 100-110 CARBON DIOXIDE 29 mmol/L 20-30 ANION GAP 9 mmol/L 4-16 GLUCOSE 133 mg/dL H 65-100 CREATININE 1.01 mg/dl 0.5-1.5 CALCIUM 9.7 mg/dL 8.5-10.5 eGFR 75 mL/min >60 Oct 23, 2020 07:56 [facility] VIT D 25-OH(J) Specimen Typ e: SERUM AM [facility] Comment: Specim en 1+ Hemolysis Tests performed on Elder Hydrometer Tester (405) Ordering Provide r: LOUISA AUSTIN Report Released Date/Time: Oct 21, 2020 10:35 AM Reporting Lab: [facility] [address] [facility] [address] Performing Lab: [facility] [address] [facility] [address] VIT D 25-OH([facility]) 39.8 ng/mL 20-50 Oct 23, 2020 [place] MICROALBUMIN/CREATININE RATIO Sp ecimen Type: URINE 07:56 AM [facility] PANEL Comment: Tests performed on Elder Hydrometer Tester (405) Ordering Provide r: LOUISA AUSTIN Report Released Date/Time: Oct 21, 2020 10:35 AM Reporting Lab: [facility] [address] [facility] [address] Performing Lab: [facility] [address] [facility] [address] CREATININE (URINE,RANDOM) 27.2 mg/dL MICROALBUMIN, QUANTITATIVE < 0.1 mg/dL 0 .0-29.9 MICROALBUMIN/CREATININE RATIO canc mg/g 0.0-29.9 Oct 23, 2020 [facility] GLYCOHEMOGLOBIN (A1C Specimen Ty pe: BLOOD 07:56 [facility] Comment: Tests performed on Elder Hydrometer Tester (405) Ordering Provide r: LOUISA AUSTIN Report Released Date/Time: Oct 21, 2020 10:35 AM Reporting Lab: [facility] [address] [facility] [address] Performing Lab: [facility] [address] [facility] [address] HEMOGLOBIN A1C 5.6 % 4.0-5.6 Oct 23, 2020 07:56 [facility] VITAMIN B-12 Specimen Type : SERUM AM [facility] Comment: Specim en 1+ Hemolysis Tests performed on Elder Hydrometer Tester (405) Ordering Provide r: LOUISA AUSTIN Report Released Date/Time: Oct 21, 2020 10:35 AM Reporting Lab: [facility] [address] [facility] [address] Performing Lab: [facility] [address] [facility] [address] VITAMIN B-12 780 pg/mL 200-900 Social History: Smoking Status (Most current) and Tobacco Use (All prior to encounter date) This section includes the most current, and the historical, smoking and tobacco-related health factors from the [place] facility where the Encounter took place.Current Smoking Status This section includes the most current smoking, or tobacco-related health factor, from the [place] facility where the Encounter took place. Date/Time Current Smoking Status Comment Facility Oct 26, 2019 09:30 AM VA-TOBACCO QUIT 1 TO < 5 YRS [facility] Tobacco Use History This section includes a history of the smoking, or tobacco-related health factors, that were collected on or before the date of the Encounter. The data comes from the [place] facility where the Encounter took place. Date/Time Smoking Status/Tobacco Use Comment [facility] Oct 26, 2019 09:30 AM VA-TOBACCO QUIT 1 TO < 5 YRS [facility] Dec 09, 2018 10:48 AM LIFETIME NON-TOBACCO USER [facility] Aug 04, 2018 03:07 PM VA-TOBACCO FORMER USER [facility] Aug 04, 2018 03:07 PM VA-TOBACCO QUIT 1 TO < 5 YRS [facility] Oct 05, 2017 10:33 AM CURRENT SMOKER [facility] Lang [facility] 2 ppd Oct 05, 2017 10:33 AM V1-PT READY TO QUIT TOBACCO USE [facility] Oct 20, 2016 09:35 AM QUIT TOBACCO USE 1-7 YEARS AGO [facility] 1.5 ago Nov 05, 2015 01:31 PM QUIT TOBACCO USE 1-7 YEARS AGO [facility] Jul 24, 2014 08:39 AM QUIT TOBACCO USE 1-7 YEARS AGO [facility] Jul 28, 2013 09:49 AM QUIT TOBACCO USE 1-7 YEARS AGO [facility] Oct 26, 2012 12:34 PM QUIT TOBACCO USE IN PAST YEAR [facility] Sep 29, 2011 08:35 AM QUIT TOBACCO USE 1-7 YEARS AGO [facility] February 10, 2011 02:44 PM QUIT TOBACCO USE IN PAST YEAR [facility] Advance Directives: All historical and current Section Date Range: From patient's date of to the date document was created. This section includes ALL of a patient's completed or amended [place] Advance and Rescinded Directives. The entries below indicate that a directive exists for the patient, but an actual copy is not included with this document. The data comes from all [place] facilities. Date Advance Directives Provider Source Nov 29, 2017 ADVANCE DIRECTIVE CHANTELL,RUBIN [facility] Encounter Notes: All associated encounter notes This section contains the clinical notes associated to the Encounter. Date/Time Encounter Note(s) Provider Source Oct 15, 2020 03:17 PM TELEPHONE ENCOUNTER NOTE: ARIAS MOORE [facility] LOCAL TITLE: VISN 1 CCC ACTION REQUIRED STANDARD TITLE: TELEPHONE ENCOUNTER NOTE DATE OF NOTE: OCT 15, 2020@15:17:12 ENTRY DATE: OCT 15, 2020@15:18:54 AUTHOR: ARIAS MOORE EXP COSIGNER: URGENCY: STATUS: COMPLETED VISN 1 CCC ACTION REQUIRED Has ADDENDA * Type of call: CALL BACK/REPEAT CALL. Caller Response: SENT TO PACT The patient, RUSSELL MCGOVERN ([id number]) Alireza ne: [phone] called the call center. Comments: pt wants to know if he has to come in early for his appt on Oct 23 for labs - if he does need to, please call him so he can co me in early to get them done Evaluation/Management Code: HC PRO PHONE CALL 5- 10 MIN ([id number]). Starting at: 10/15/2020 @ 3:17:12 PM Ending at: 10/15/2020 @ 3:18:48 PM Length: 1 minutes. Author: ARIAS MOORE Caller Area: * [place] Chief Complaint: Not applicable to call. Class Code: Other specified counseling. Contact Patient's Email Address: [email or web address] /es/ ARIAS MOORE Advanced Insulation Machine Operator Signed: 10/15/2020 15:18 Receipt Acknowledged By: 10/17/2020 16:19 /es/ RONY PEREZ Registered Nurse 10/21/2020 10:27 /es/ Louisa stoddard MSN,[employer] Nurse Practitioner Faculty 10/17/2020 ADDENDUM STATUS: COMPLETED Defer to PCP. /es/ RONY VILLEDA Registered Nurse Signed: 10/17/2020 16:19 10/21/2020 ADDENDUM STATUS: COMPLETED labs ordered /es/ Louisa Austin MSN,[employer] G Nurse Practitioner Faculty Signed: 10/21/2020 10:28 Receipt Acknowledged By: 10/21/2020 11:14 /es/ RONY PEREZ Registered Nurse 10/21/2020 ADDENDUM STATUS: COMPLETED Phoned patient and relayed l abs have been ordered, asked that he arrive 30 mins early to get labs drawn and then come to the [facility] after. /es/ RONY VILLEDA Registered Nurse Signed: 10/21/2020 11:14
--- OUTSIDE RECORDS SUMMARY | 2020-12-20 10:55 | XMS_ITS ---
:1960 Author Organization [facility] rs Address [address] [place] [id number] Care Team Providers Name Role Phone NICOLAS AUSTIN Primary Care Provider Unavailable Insurance Providers: [...] MEDICARE MEDICARE PART Mar 27, PART B [id number] SAVANNAH MCGOVERN PATIENT (WNR) (M) B 2018 [id number] 1 [place] MEDICARE MEDICARE PART Apr 27, PART A [id number] PATIENT (WNR) (M) A 2005 PQ95 1 RUSSELL JONES -FO TRICA Mar 27, 428 [id number] [phone] PRITRISH TSI PATIENT R-LIFE RE 2018 [id number] DNEY -FO TFL Mar 27, [id number] [phone] PRIShaye STSI PATIENT R-LIFE 2018 [id number] DNEY UNITED MEDICARE MCR(W Sep 27, [id number] [phone] CARBURETOR SPECIALIST,S I PATIENT HEALTHCARE ADVANTAGE NR) 2019 [id number] 0 DNEY MCR (WNR) Selected Encounter This section includes the information on record at [facility] for the Encounter. Date/Time Encounter Type Encounter Reason Provider Source Description Oct 23, 2020 OFFICE O/P EST GERIPACT ICD-10-CM I10 [place] 09:01 AM MOD 30-39 MIN Essential H,NICOLAS HOYOS (primary) hypertension with Provider Comments: Hypertension ([facility] [id number]) IHE Encounter Template Text not used by [facility] Assessments - Encounter Diagnoses This section includes the primary and secondary diagnoses documented forthe Encounter. Date/Time Primary/Secondary Diagnosis Name Provider Source Diagnosis Oct 23, 2020 PRIMARY Essential (primary) [place] 10:01 AM hypertension ,NICLOAS HOYOS [facility] Oct 23, 2020 SECONDARY Whitehead's esophagus [facility] [place] 10:01 AM without dysplasia ,NICOLAS HOYOS [facility] Oct 23, 2020 SECONDARY Constipation, [place] [place] 10:01 AM unspecified ,NICOLAS HOYOS [facility] Oct 23, 2020 SECONDARY Cough [facility] [place] 10:01 AM ,NICOLAS HOYOS [facility] Oct 23, 2020 SECONDARY Migraine w/o aura, [place] 10:01 AM not intractable, ,NICOLAS HOYOS [facility] w/o status migrainosus Oct 23, 2020 SECONDARY Personal history of [place] 10:01 AM nicotine dependence ,NICOLAS [facility] Plan of Treatment: Future Appointments (+ 6 months) and Future Tests (+/- 45 days) The Plan of Treatment section includes future care activities for the patient from all [facility] treatment facilities. This section includes future appointments and future orders which are active, pending or scheduled.Future Appointments This section includes appointments that were scheduled to occur 6 months from the date of the Encounter, up to a maximum of 20 appointments. [facility] Appointment Date/Time Appointment Type Appointment Facili ty Name Oct 28, 2020 09:15 AM AMBULATORY - REHAB MEDICINE [facility] Nov 29, 2020 09:15 AM AMBULATORY - NONE [place] [facility] Dec 04, 2020 08:30 AM AMBULATORY - NONE [place] [facility] Dec 04, 2020 09:00 AM AMBULATORY - SURGERY [place] [facility] Dec 27, 2020 08:30 AM AMBULATORY - NONE [place] [facility] Active, Pending, and Scheduled Orders This section includes a listing of several types of active, pending, and scheduled orders, including clinic medications orders, diagnostic test orders, procedure orders and consult orders; where the start date of the order is 45 days before the date of the Encounter or 45 days after the date of the Encounter. The data comes from all [facility] treatment facilities. Test Date/Time Test Type Test Details Facility Name Dec 04, 2020 09:41 AM Consult Order SLEEP CLINIC OUTPATIENT [facility] Cons Tip Scourer's Choice Lab Results: +/- 30 days of the encounter This section includes the Chemistry and Hematology Lab Results on record with [facility] for the patient. Radiology Reports and Pathology Reports are provided separately, in subsequent sections.Lab Results This section contains the Chemistry/Hematology Results that were resulted 30 days before or 30 days after the date of the Encounter. Date/Time Source Result Type Result - Unit Interpretation Reference Range Comment Oct 23, 2020 [facility] P4 GLU,BUN,CREAT,LYTES,CA Specim en Type: PLASMA 07:56 AM [facility] Comment: Tests performed on [employer] (405) Ordering Provide r: NICOLAS AUSTIN Report Released Date/Time: Oct 21, 2020 10:35 AM Reporting Lab: [facility] [address] [facility] [address] Performing Lab: [facility] [address] [facility] [address] UREA NITROGEN 9 mg/dL 7-25 SODIUM 139 mmol/L 135-145 POTASSIUM 4.3 mmol/L 3.5-5.0 CHLORIDE 101 mmol/L 100-110 CARBON DIOXIDE 29 mmol/L 20-30 ANION GAP 9 mmol/L 4-16 GLUCOSE 133 mg/dL H 65-100 CREATININE 1.01 mg/dl 0.5-1.5 CALCIUM 9.7 mg/dL 8.5-10.5 eGFR 75 mL/min >60 Oct 23, 2020 07:56 [facility] VIT D 25-OH(J) Specimen Typ e: SERUM AM [facility] Comment: Specim en 1+ Hemolysis Tests performed on [employer] (405) Ordering Provide r: NICOLAS AUSTIN Report Released Date/Time: Oct 21, 2020 10:35 AM Reporting Lab: [place] [facility] [address] [facility] [address] Performing Lab: [place] [facility] [address] [facility] [address] VIT D 25-OH(WRJ) 39.8 ng/mL 20-50 Oct 23, 2020 [facility] MICROALBUMIN/CREATININE RATIO Sp ecimen Type: URINE 07:56 AM [facility] PANEL Comment: Tests performed on [employer] (405) Ordering Provide r: NICOLAS AUSTIN Report Released Date/Time: Oct 21, 2020 10:35 AM Reporting Lab: [place] [facility] [address] [facility] [address] Performing Lab: [facility] [address] [facility] [address] CREATININE (URINE,RANDOM) 27.2 mg/dL MICROALBUMIN, QUANTITATIVE < 0.1 mg/dL 0 .0-29.9 MICROALBUMIN/CREATININE RATIO canc mg/g 0.0-29.9 Oct 23, 2020 [facility] GLYCOHEMOGLOBIN (A1C Specimen Ty pe: BLOOD 07:56 AM [facility] ONLY) Comment: Tests performed on [employer] (405) Ordering Provide r: NICOLAS AUSTIN Report Released Date/Time: Oct 21, 2020 10:35 AM Reporting Lab: [facility] [address] [facility] [address] Performing Lab[facility] [address] [facility] [address] HEMOGLOBIN A1C 5.6 % 4.0-5.6 Oct 23, 2020 07:56 [facility] VITAMIN B-12 Specimen Type : SERUM AM [facility] Comment: Specim en 1+ Hemolysis Tests performed on [employer] (405) Ordering Provide r: NICOLAS AUSTIN Report Released Date/Time: Oct 21, 2020 10:35 AM Reporting Lab: [facility] [address] [facility] [address] Performing Lab: [facility] [address] [facility] [address] VITAMIN B-12 780 pg/mL 200-900 Vital Signs: All taken on the encounter date This section contains inpatient and outpatient Vital Signs collected on the date of the Encounter. Date/Time Temperature Pulse Blood Respiratory SP02 Pain Height Weight Nikos dy Source Pressure Rate Mass Index Oct 23, 97.7 F 78 133/83 18 /min 95 % 0 189.5 29 WHITE 2020 09:11 /min mm[Hg] lb [facility] Social History: Smoking Status (Most current) and Tobacco Use (All prior to encounter date) This section includes the most current, and the historical, smoking and tobacco-related health factors from the [facility] facility where the Encounter took place.Current Smoking Status This section includes the most current smoking, or tobacco-related health factor, from the [facility] facility where the Encounter took place. Date/Time Current Smoking Status Comment Facility Oct 23, 2020 09:01 AM VA-TOBACCO FORMER USER Mike BERRY [facility] Tobacco Use History This section includes a history of the smoking, or tobacco-related health factors, that were collected on or before the date of the Encounter. The data comes from the [facility] facility where the Encounter took place. Date/Time Smoking Status/Tobacco Use Comment [facility] Oct 23, 2020 09:01 AM VA-TOBACCO QUIT 1 TO < 5 YRS [place] [facility] Oct 26, 2019 09:30 AM VA-TOBACCO FORMER USER [facility]IZALDE [facility] Oct 26, 2019 09:30 AM VA-TOBACCO QUIT 1 TO < 5 YRS [facility] Dec 09, 2018 10:48 AM LIFETIME NON-TOBACCO USER [facility] Aug 04, 2018 03:07 PM VA-TOBACCO FORMER USER [facility] Aug 04, 2018 03:07 PM VA-TOBACCO QUIT 1 TO < 5 YRS [facility] Oct 05, 2017 10:33 AM CURRENT SMOKER LEORA Lang [facility] 2 ppd Oct 05, 2017 10:33 AM V1-PT READY TO QUIT TOBACCO USE [facility] Oct 20, 2016 09:35 AM QUIT TOBACCO USE 1-7 YEARS AGO [facility] 1.5 ago Nov 05, 2015 01:31 PM QUIT TOBACCO USE 1-7 YEARS AGO [facility] Jul 24, 2014 08:39 AM QUIT TOBACCO USE 1-7 YEARS AGO [facility] Jul 28, 2013 09:49 AM QUIT TOBACCO USE 1-7 YEARS AGO [facility] Oct 26, 2012 12:34 PM QUIT TOBACCO USE IN PAST YEAR [facility] Sep 29, 2011 08:35 AM QUIT TOBACCO USE 1-7 YEARS AGO [facility] February 10, 2011 02:44 PM QUIT TOBACCO USE IN PAST YEAR [facility] Advance Directives: All historical and current Section Date Range: From patient's date of to the date document was created. This section includes ALL of a patient's completed or amended [facility] Advance and Rescinded Directives. The entries below indicate that a directive exists for the patient, but an actual copy is not included with this document. The data comes from all [facility] facilities. Date Advance Directives Provider Source Nov 29, 2017 ADVANCE DIRECTIVE RUBIN ABDUL [facility] Encounter Notes: All associated encounter notes This section contains the clinical notes associated to the Encounter. Date/Time Encounter Note(s) Provider Source Dec 04, 2020 09:38 LETTERS: COURTNEY AUSTIN [facility] LOCAL TITLE: Letter To Patient Rosa HOYOS [facility] STANDARD TITLE: LETTERS DATE OF NOTE: DEC 04, 2020@09:38 ENTRY DATE: DEC 04, 2020@09:38:56 AUTHOR: COURTNEY AUSTIN EXP COSIGNER: URGENCY: STATUS: COMPLETED [employer] [facility] [address] [place] [address] DEC 04, 2020 MR. RUSSELL MCGOVERN [address] [place] [id number] Dear Mr. Russell Mcgovern: Thank you for choosing the [facility] for your health care. Laboratory or Imagi ng test results have returned below: Impression: 1. Lung-RADS category 1, negative. Recomm end continued annual screening with low-dose CT in 12 months pe r Lung-RADS. If you have any further questions please call to free at [phone] or locally at ,[phone].Please ask for the nurse covering Team 6 in [facility]. Please leave a detailed message related to your question or concern. We are ready to ass ist you in your health and wellness goals. Sincerely, Nicolas Austin MSN,TRUCK DRIVER HEAVY Nurse Practitioner Faculty Oct 23, 2020 10:06 ADMINISTRATIVE NOTE: COURTNEY AUSTIN AM LOCAL TITLE: ADMIN INTEREST COVID-19 (MSA) Rosa SOLOMON [facility] STANDARD TITLE: ADMINISTRATIVE NOTE DATE OF NOTE: OCT 23, 2020@10:06 ENTRY DATE: OCT 23, 2020@10:06:55 AUTHOR: COURTNEY AUSTIN EXP COSIGNER: URGENCY: STATUS: COMPLETED Thank you for your interest in the COVID-19 vacc ination. During the initial period of limited vaccine sup ply, the [facility] is offering the COVID-19 vaccine to Veter ans who are at the greatest risk for infection and sever e illness based on the CDCs guidelines. The VAs goal is to offer the vaccine to all Vete rans and employees who choose to be vaccinated. You can go to www.va.gov and sign up to stay inf ormed about COVID-19 Vaccines. This will keep you updated an d alert the facility to your interest. If youd like, I can also add a note to your robe t documenting your interest and we will contact you once you b ecome eligible for the vaccine. Yes, is interested, has Stage 4 can cer/ anxious to get vaccine /es/ Nicolas Austin MSN,TRUCK DRIVER HEAVY Nurse Practitioner Faculty Signed: 10/23/2020 10:07 Oct 23, 2020 08:48 PRIMARY CARE NOTE: COURTNEY AUSTIN AM LOCAL TITLE: Primary Care Clinic Note Rosa HOYOS [facility] STANDARD TITLE: PRIMARY CARE NOTE DATE OF NOTE: OCT 23, 2020@08:48 ENTRY DATE: OCT 23, 2020@08:48:15 AUTHOR: COURTNEY AUSTIN EXP COSIGNER: URGENCY: STATUS: COMPLETED Primary Care Clinic Note Has ADDENDA 59 year old presents for Negative COVID screeni ng at Entrance. SUBJECTIVE: CC: worried about lung cancer screening HPI: Active problems 2. History of tobacco use: declined lung cancer screening in past, agrees to do now, is encouraging him walking around home.. 1000 times in one round.. does about 10 laps, sometimes more. Listening today to his experience with Karena burrell for his father's care. 3. Diverticulosis 4. Migraine without aura: rare.. headache, alfred pentin working well 5. Foot pain: still taking Celebrex, still walking, callus shaved with podiatry 6. Hyperlipidemia (SNOMED CT [id number]) 7. 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 Vitamin D deficiency: taking 1000 OTC 10. Hypertension : at goal at home.. 11. Depression : denies.. mo re worry about her , moved this year.. in better apartment, can get in and out with wheelchair. Constipation: BM good, using MiraLAX 2 X week, using Senna No hospitalizations/ ED visits Other providers: Review of Systems: GEN: Reports no fever, chill s, decreased appetite, weight changes, recent trauma or fall. EENT: Reports no ear pain, sore throat, nasal co ngestion, rhinorrhea, mouth pain, change in taste CV: Reports no chest pain, SIDDIQI, irregular HR, pa lpitation. PULM: Reports no dyspnea, wheezing, +pro ductive cough.phelgm sometimes when he coughs, reports apnea and cough episode. de mies daytime sleepiness. GI: Reports no n/v/d, constipation, blood in sto ol, dark tarry stools. : Reports no dysuria, urinary frequency, urgen cy, flank pain. Not sexually active MSK: Denies erythema, effusion, joint pain, myal phill's, muscle cramping . NEURO: Reports no headaches, numbness, tingling, weakness, dizziness, tremor or change in memory. EXT: Reports no edema, pain, weakness or change in sensation. Skin: Reports no rash, new or changed lesions. PSYCH: Feels safe at home. Reports not feeling a nxious, down, depressed or hopeless. Reports no loss of interest or pleasur e in previously enjoyable activities. Some worry. Social History: Relationship: has stage 4 lung cancer(Mets to lung and bones) recurrence X 2, after 14 years she was cancer free. Called Tobacco: quit smoking 2 years ago, 1.5 packs /27 years Alcohol: three beers on Wednesday, 10 beers in the month.. did not drink when depressed . 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[employer]) MEDS: ALLERGIES: PENICILLIN Active Outpatient Medications (excluding Supplie s): Active Outpatient Medications Status 1) ATORVASTATIN CALCIUM 20MG TAB TAKE ONE TABL ET BY ACTIVE MOUTH AT BEDTIME 2) CELECOXIB 100MG CAP TAKE ONE CAPSULE BY DERRICK TH DAILY ACTIVE FOR ARTHRITIS 3) GABAPENTIN 300MG CAP TAKE TWO CAPSULES BY M OUTH THREE ACTIVE TIMES A DAY TO PREVENT SEIZURES OR PAIN 4) HYDROCHLOROTHIAZIDE 25MG TAB TAKE ONE TABLE T BY MOUTH ACTIVE EVERY MORNING TO REMOVE FLUID/CONTROL BLO OD PRESSURE 5) METOPROLOL SUCCINATE 25MG SA TAB TAKE ONE-H EARLE TABLET ACTIVE (S) BY MOUTH AT BEDTIME TAKES FOR MIGRAINE OR EVENTION 6) OMEPRAZOLE 20MG EC CAP TAKE TWO CAPSULES BY MOUTH ACTIVE EVERY MORNING BEFORE BREAKFAST FOR STOMAC H ACID (TAKE HALF-HOUR BEFORE A MEAL(S) 7) POLYETHYLENE GLYCOL 3350 ORAL PWDR TAKE 1 C APFUL (17 ACTIVE GRAMS) BY MOUTH EVERY DAY NEEDED , DIS SOLVED IN 4 TO 8 OZ. CLEAR LIQUID / FOR CONSTIPATIO N WHILE TAKING NARCOTICS FOR PAIN TO AVOID CONSTI PATION; HOLD FOR LOOSE STOOL 8) SENNOSIDES 8.6MG TAB TAKE ONE TABLET BY DERRICK TH TWICE ACTIVE DAILY NEEDED FOR CONSTIPATION-- START ONCE A DAY IN EVENING 9) UREA 20% CREAM APPLY SMALL AMOUNT TOPICALLY TWICE ACTIVE DAILY NEEDED FOR DRY SKIN PMH: SH: inguinal hernia repair 2018 OBJECTIVE: T: 97.1 F [36.2 C] (10/31/2019 14:20) BP:132/95 (10/31/2019 14:20) HR:93 (10/31/2019 14:20) SpO2: PULSE OXIMETRY - NONE FOUND - BMI: BODY MASS INDEX - OCT 26, 2019@08:39:14 2 6.7 WT: 175 lb [79.5 kg] (10/26/2019 08:39) HT: 68 in [172.7 cm] (10/26/2019 08:39) GEN: Well-appearing, no apparent distress, weari ng facemask. ENT: No scleral icterus. Hearing intact to conve rsational voice, moist mucus membranes. NECK: supple. CHEST: Respirations unlabored., lungs clear MSK: Coordinated gait, bilat UE and LE proximal and distal strength grossly normal. NEURO: Alert and oriented, CN II-XII grossly int act. SKIN: pink warm dry. PSYCH: Appropriate affect and demeanor, normal s peech pattern Labs/Tests: Labs (14 Days) Collection DT Specimen Test Name Result Units Ref Range 10/23/2020 07:56 BLOOD !! HEMOGLOBIN A1C 5.6 % 4.0 - 5.6 10/23/2020 07:56 URINE !! CR RAN 27.2 mg/dL !! MCIROA < 0.1 mg/dL 0.0 - 29.9 !! MAL/CRE canc mg/g 0.0 - 29.9 10/23/2020 07:56 PLASMA!! GLUCOSE 133 H mg/dL 65 - 100 !! UREA NITROGEN 9 mg/dL 7 - 25 !! CREATININE 1.01 mg/dl 0.5 - 1.5 !! eGFR >60 mL/min Ref: >=60 !! SODIUM 139 mmol/L 135 - 145 !! POTASSIUM 4.3 mmol/L 3.5 - 5.0 !! CHLORIDE 101 mmol/L 100 - 110 !! CARBON DIOXIDE 29 mmol/L 20 - 30 !! ANION GAP 9 mmol/L 4 - 16 !! CALCIUM 9.7 mg/dL 8.5 - 10. ASSESSMENT/PLAN: Apnea episodes Noted by : referral to sleep clinic for home study productive couch: Mucinex Sa at hs X 2 w eeks, if helps continue, send message HTN: stable at home. Constipation: bowels good on meds Jos's: Cont PPI see GI note Chronic foot pain s/p injury: Cont Celebrex Migraines : sable Cont gabapentin Questions were solicited and answered, plan is u nderstood by patient. Lab results discussed with patient during the vi sit. Reviewed: Medication/treatment benefits/risks/si de effects/monitoring Preventive/Health Maintenance: Agreed to lung Ca screening RTC: 12 months Reminders: Advance Directive Screen: Patient has an Advance Directive on file a t this [facility]. The patient received education about advance directive s as well as written notification of his/her rights. Patient has an up to date Advance Directiv e document on file at this [facility]. No updates are needed at this time. The patient received education about advan ce directives as well as written notification of his/her rights. BMI>30/>24.99 High Risk: Patient and provider agree that cu rrent weight is within a healthy range and further discussion is not necessary at this time. Tobacco Use Screening: The patient is a former tobacco user. The patient quit one to less than 5 years ago. Alcohol Use Screen (AUDIT-C): Alcohol Screen: SCREEN FOR ALCOHOL (AUDIT-C) An alcohol screening test (AUDIT-C ) was negative (score=1). 1. How often did you have a drink containing alcohol in the past year? Monthly or less 2. How many drinks containing alco hol did you have on a typical day when you were drinking in the past year? One or two drinks 3. How often did you have six or m ore drinks on one occasion in the past year? Never Lipid Screening: Patient was educated about cardiac risk fa ctors related to cholesterol control, including all elements of the Lipid Panel which checks HDL, LDL and Triglycerides. declined testin g at this time. Medication Reconciliation: Outpatient: Has the patient been taking medications as documented in the EMLR? YES: The patient has been taking medicatio ns as documented in the EMLR. Essential Medication List for Review used to complete this medication reconciliation. INCLUDED IN THIS LIST: Alphabetical list o f active outpatient prescriptions dispensed from this [facility] (loca ) and dispensed from another [facility] or DoD facility (remote) as well as inp atient orders (local, pending and active), local clinic medications, loc ally documented non-VA medications, and local prescriptions that have or been discontinued in the past 90 days. - All changes in medic ations, including all non-VA/Herbal/OTC medications were entered into CPRS. - If there were any medications the patien t should no longer take, they were discontinued. - The patient/caregiver was instructed to update this list, discard old lists, and take this list to the next appo intment, whether with a VA or non-VA provider. Depression Screening: Perform PHQ-2 A PHQ-2 screen was performed. The sc ore was 0 which is a negative screen for depression. Over the past two weeks, how often h ave you been bothered by the following problems? 1. Little interest or pleasure in do ing things Not at all 2. Feeling down, depressed, or hopel ess Not at all Suicide Screen: C-SSRS Screening [place]-Suicide Severity Rating Scale (C- SSRS Screener) 1. Over the past month, have you wished you were or wished you could go to sleep and not wake up? No 2. Over the past month, have you had any actual thoughts of killing yourself? No 3. Over the past month, have you been th inking about how you might do this? Response not required due to responses t o other questions. 4. Over the past month, have you had the se thoughts and had some intention of acting on them? Response not required due to responses t o other questions. 5. Over the past month, have you started to work out or worked out the details of how to kill yourself? Response not required due to responses t o other questions. 6. If yes, at any time in the past month did you intend to carry out this plan? Response not required due to responses t o other questions. 7. In your lifetime, have you ever done anything, started to do anything, or prepared to do anything to end your life (for example, collected pills, obtained a gun, gave away valuables, went to the roof but didn't jump)? No 8. If YES, was this within the past 3 mo nths? Response not required due to responses t o other questions. /trish/ Nicolas Austin MSN,TRUCK DRIVER HEAVY Nurse Practitioner Faculty Signed: 10/23/2020 10:01 11/05/2020 ADDENDUM STATUS: COMPLETED Add: possible PND trial of guaifenesin /fabrice Austin MSN,TRUCK DRIVER HEAVY Nurse Practitioner Faculty Signed: 11/05/2020 14:25
--- OUTSIDE RECORDS SUMMARY | 2020-12-20 10:55 | XMS_ITS | Encounter Summary ---
:[address] [facility] Address [address] [place] [address] Care Team Providers Name Role Phone NICOLAS [...] MEDICARE MEDICARE PART Mar 27, PART B [id number] SAVANNAH MCGOVERN PATIENT (WNR) (M) B 2018 [id number] 1 [place] MEDICARE MEDICARE PART Apr 27, PART A [id number] PATIENT (WNR) (M) A 2005 PQ95 1 SOCO JONES -FO TRICA Mar 27, [id number] [phone] PRIES T,SI PATIENT R-LIFE RE 2018 [id number] DNEY -FO TFL Mar 27, [id number] [phone] PRIShaye STSI PATIENT R-LIFE 2018 [id number] D[place] UNITED MEDICARE MCR(W Sep 27, [id number] [phone] [employer] AGENT,S I PATIENT HEALTHCARE ADVANTAGE NR) 2019 82 0 DNEY MCR (WNR) Selected Encounter This section includes the information on record at [place] for the Encounter. Date/Time Encounter Type Encounter Reason Provider Source Description Oct 21, 2020 01:59 Outpatient PRIMARY ALEXAVIJAYA PM Encounter CARE/MEDICINE IHE Encounter Template Text not used by [place] Plan of Treatment: Future Appointments (+ 6 months) and Future Tests (+/- 45 days) The Plan of Treatment section includes future care activities for the patient from all [place] treatment facilities. This section includes future appointments and future orders which are active, pending or scheduled.Future Appointments This section includes appointments that were scheduled to occur 6 months from the date of the Encounter, up to a maximum of 20 appointments. The data comes from all [facility]. Appointment Date/Time Appointment Type Appointment Facili ty Name Oct 23, 2020 09:01 AM AMBULATORY - MEDICINE [facility] Oct 28, 2020 09:15 AM AMBULATORY - REHAB MEDICINE [place] [facility] Nov 29, 2020 09:15 AM AMBULATORY - NONE [facility] Dec 04, 2020 08:30 AM AMBULATORY - NONE [facility] Dec 04, 2020 09:00 AM AMBULATORY - SURGERY [facility] Dec 27, 2020 08:30 AM AMBULATORY - NONE [facility] Active, Pending, and Scheduled Orders This section includes a listing of several types of active, pending, and scheduled orders, including clinic medications orders, diagnostic test orders, procedure orders and consult orders; where the start date of the order is 45 days before the date of the Encounter or 45 days after the date of the Encounter. The data comes from all [place] treatment facilities. Test Date/Time Test Type Test Details Facility Name Dec 04, 2020 09:41 AM Consult Order SLEEP CLINIC OUTPATIENT ITE [facility] Cons Clerical Assigner's Choice Lab Results: +/- 30 days of the encounter This section includes the Chemistry and Hematology Lab Results on record with [place] for the patient. Radiology Reports and Pathology Reports are provided separately, in subsequent sections.Lab Results This section contains the Chemistry/Hematology Results that were resulted 30 days before or 30 days after the date of the Encounter. Date/Time Source Result Type Result - Unit Interpretation Reference Range Comment Oct 23, 2020 [facility] P4 GLU,BUN,CREAT,LYTES,CA Specim en Type: PLASMA 07:56 AM [facility] Comment: Tests performed on Elder Tax Preparer (405) Ordering Provide r: NICOLAS ESCALERA Report Released Date/Time: Oct 21, 2020 10:35 AM Reporting Lab: [facility] [address] [address] Performing Lab: [facility] [address] [address] UREA NITROGEN 9 mg/dL 7-25 SODIUM 139 mmol/L 135-145 POTASSIUM 4.3 mmol/L 3.5-5.0 CHLORIDE 101 mmol/L 100-110 CARBON DIOXIDE 29 mmol/L 20-30 ANION GAP 9 mmol/L 4-16 GLUCOSE 133 mg/dL H 65-100 CREATININE 1.01 mg/dl 0.5-1.5 CALCIUM 9.7 mg/dL 8.5-10.5 eGFR 75 mL/min >60 Oct 23, 2020 07:56 [facility] VIT D 25-OH([facility]) Specimen Typ e: SERUM AM [facility] Comment: Specim en 1+ Hemolysis Tests performed on Elder Tax Preparer (405) Ordering Provide r: NICOLAS ESCALERA Report Released Date/Time: Oct 21, 2020 10:35 AM Reporting Lab: [facility] [address] [address] Performing Lab: [facility] [address] [address] VIT D 25-OH([facility]) 39.8 ng/mL 20-50 Oct 23, 2020 [place] MICROALBUMIN/CREATININE RATIO Sp ecimen Type: URINE 07:56 AM [facility] PANEL Comment: Tests performed on Elder Tax Preparer (405) Ordering Provide r: NICOLAS ESCALERA Report Released Date/Time: Oct 21, 2020 10:35 AM Reporting Lab: [facility] [address] [address] Performing Lab: [facility] [address] [address] CREATININE (URINE,RANDOM) 27.2 mg/dL MICROALBUMIN, QUANTITATIVE < 0.1 mg/dL 0 .0-29.9 MICROALBUMIN/CREATININE RATIO canc mg/g 0.0-29.9 Oct 23, 2020 [facility] GLYCOHEMOGLOBIN (A1C Specimen Ty pe: BLOOD 07:56 AM [facility] ONLY) Comment: Tests performed on Elder Tax Preparer (405) Ordering Provide r: NICOLAS ESCALERA Report Released Date/Time: Oct 21, 2020 10:35 AM Reporting Lab: [facility] [address] [address] Performing Lab: [facility] [address] [address] HEMOGLOBIN A1C 5.6 % 4.0-5.6 Oct 23, 2020 07:56 [facility] VITAMIN B-12 Specimen Type : SERUM AM [facility] Comment: Specim en 1+ Hemolysis Tests performed on Elder Tax Preparer (405) Ordering Provide r: NICOLAS ESCALERA Report Released Date/Time: Oct 21, 2020 10:35 AM Reporting Lab: [facility] [address] [address] Performing Lab: [facility] [address] [address] VITAMIN B-12 780 pg/mL 200-900 Social History: Smoking Status (Most current) and Tobacco Use (All prior to encounter date) This section includes the most current, and the historical, smoking and tobacco-related health factors from the [place] facility where the Encounter took place.Current Smoking Status This section includes the most current smoking, or tobacco-related health factor, from the [place] facility where the Encounter took place. Date/Time Current Smoking Status Comment Facility Oct 26, 2019 09:30 AM VA-TOBACCO QUIT 1 TO < 5 YRS [facility] Tobacco Use History This section includes a history of the smoking, or tobacco-related health factors, that were collected on or before the date of the Encounter. The data comes from the [place] facility where the Encounter took place. Date/Time Smoking Status/Tobacco Use Comment Earle jacobs Oct 26, 2019 09:30 AM VA-TOBACCO QUIT 1 TO < 5 YRS [place] [facility] Dec 09, 2018 10:48 AM LIFETIME NON-TOBACCO USER [place] [facility] Aug 04, 2018 03:07 PM VA-TOBACCO FORMER USER [place] [facility] Aug 04, 2018 03:07 PM VA-TOBACCO QUIT 1 TO < 5 YRS [place] [facility] Oct 05, 2017 10:33 AM CURRENT SMOKER [facility] [facility] 2 ppd Oct 05, 2017 10:33 AM V1-PT READY TO QUIT TOBACCO USE [facility] Oct 20, 2016 09:35 AM QUIT TOBACCO USE 1-7 YEARS AGO [facility] 1.5 ago Nov 05, 2015 01:31 PM QUIT TOBACCO USE 1-7 YEARS AGO [facility] Jul 24, 2014 08:39 AM QUIT TOBACCO USE 1-7 YEARS AGO [facility] Jul 28, 2013 09:49 AM QUIT TOBACCO USE 1-7 YEARS AGO [facility] Oct 26, 2012 12:34 PM QUIT TOBACCO USE IN PAST YEAR [facility] Sep 29, 2011 08:35 AM QUIT TOBACCO USE 1-7 YEARS AGO [facility] February 10, 2011 02:44 PM QUIT TOBACCO USE IN PAST YEAR [facility] Advance Directives: All historical and current Section Date Range: From patient's date of to the date document was created. This section includes ALL of a patient's completed or amended [place] Advance and Rescinded Directives. The entries below indicate that a directive exists for the patient, but an actual copy is not included with this document. The data comes from all [place] facilities. Date Advance Directives Provider Source Nov 29, 2017 ADVANCE DIRECTIVE RUBIN ABDUL [facility] Encounter Notes: All associated encounter notes This section contains the clinical notes associated to the Encounter. Date/Time Encounter Note(s) Provider Source Oct 21, 2020 01:59 PM PRIMARY CARE SECURE MESSAGING: VIJAYA LIU [facility] LOCAL TITLE: PRIMARY CARE SECURE MESSAGING STANDARD TITLE: PRIMARY CARE SECURE MESSAGING DATE OF NOTE: OCT 21, 2020@13:59 ENTRY DATE: OCT 21, 2020@13:59:55 AUTHOR: VIJAYA LIU EXP COSIGNER: URGENCY: STATUS: COMPLETED ------Original Message Sent: 10/19/2020 05:21 AM From: SOCO MCGOVERN To: MAURILIO-[email or web address]_[email or web address] Subject: existing apointment hi I know i have a apointment coming up wed i know usely on a yearly bases she have me do lab work done before i see her .so i dont know if she is i would like to know in case if i have to fast. thank you. from soco mcgovern ------Original Message Sent: 10/21/2020 01:59 PM From: VIJAYA LIU To: SOCO MCGOVERN Subject: existing apointment Your provider has labs ordered but they do not r equire fasting. Vijaya Liu, RN WMF Team 2 /es/ VIJAYA NICOLE RN Signed: 10/21/2020 13:59
--- OUTSIDE RECORDS SUMMARY | 2020-12-20 10:55 | XMS_ITS | Encounter Summary ---
:1960 Author Organization Department [facility] Address [address] [place] [address] Care Team Providers Name Role Phone NICOLAS [...] MEDICARE MEDICARE PART Mar 27, PART B [id number] SAVANNAH MCGOVERN PATIENT (WNR) (M) B 2018 PQ95 1 [place] MEDICARE MEDICARE PART Apr 27, PART A [id number] PATIENT (WNR) (M) A 2005 PQ95 1 RUSSELL JONES -FO TRICA Mar 27, 095 [id number] [phone] PRITRISH TSI PATIENT R-LIFE RE 2018 [id number] DNEY -FO TFL Mar 27, [id number] [phone] STEPHENIE MACIASSI PATIENT R-LIFE 2018 [id number] [place] UNITED MEDICARE MCR(W Sep 27, [id number] [phone] DIRECTOR ORANGE,S I PATIENT HEALTHCARE ADVANTAGE NR) 2019 82 0 [place] MCR (WNR) Selected Encounter This section includes the information on record at [place] for the Encounter. Date/Time Encounter Type Encounter Description Reason Provider Source Sep 24, 2020 10:56 Outpatient Encounter TELEPHONE TRIAGE AM IHE Encounter Template Text not used by [...] appointments. The [facility] [place] [facility] Appointment Date/Time Appointment Type Appointment Facili ty Name Oct 23, 2020 09:01 AM AMBULATORY - MEDICINE [facility] Oct 28, 2020 09:15 AM AMBULATORY - REHAB MEDICINE [place] [facility] Nov 29, 2020 09:15 AM AMBULATORY - NONE [facility] Dec 04, 2020 08:30 AM [facility] Dec 04, 2020 09:00 AM AMBULATORY - SURGERY [facility] Dec 27, 2020 08:30 AM AMBULATORY - NONE [facility] Lab Results: +/- 30 days of [...] Interpretation Reference Range Comment Oct 23, 2020 [facility] P4 GLU,BUN,CREAT,LYTES,CA Specim en Type: PLASMA 07:56 AM [facility] Comment: Tests performed on [employer] Shuttler (405) Ordering Provide r: NICOLAS ESCALERA Report Released Date/Time: Oct 21, 2020 10:35 AM Reporting Lab: [facility] [address] [facility] [address] Performing Lab: [facility] [address] [facility] [address] UREA NITROGEN 9 mg/dL 7-25 SODIUM 139 mmol/L 135-145 POTASSIUM 4.3 mmol/L 3.5-5.0 CHLORIDE 101 mmol/L 100-110 CARBON DIOXIDE 29 mmol/L 20-30 ANION GAP 9 mmol/L 4-16 GLUCOSE 133 mg/dL H 65-100 CREATININE 1.01 mg/dl 0.5-1.5 CALCIUM 9.7 mg/dL 8.5-10.5 eGFR 75 mL/min >60 Oct 23, 2020 07:56 [facility] VIT D 25-OH(J) Specimen Typ e: SERUM AM [facility] Comment: Specim en 1+ Hemolysis Tests performed on Elder Shuttler (405) Ordering Provide r: NICOLAS ESCALERA Report Released Date/Time: Oct 21, 2020 10:35 AM Reporting Lab: [facility] [address] [address] Performing Lab: [facility] [address] [facility] [address] VIT D 25-OH([facility]) 39.8 ng/mL 20-50 Oct 23, 2020 [place] MICROALBUMIN/CREATININE RATIO Sp ecimen Type: URINE 07:56 AM [facility] PANEL Comment: Tests performed on Elder Shuttler (405) Ordering Provide r: NICOLAS ESCALERA Report Released Date/Time: Oct 21, 2020 10:35 AM Reporting Lab: [facility] [address] [facility] [address] Performing Lab: [facility] [address] [facility] [address] CREATININE (URINE,RANDOM) 27.2 mg/dL MICROALBUMIN, QUANTITATIVE < 0.1 mg/dL 0 .0-29.9 MICROALBUMIN/CREATININE RATIO canc mg/g 0.0-29.9 Oct 23, 2020 [facility] GLYCOHEMOGLOBIN (A1C Specimen Ty pe: BLOOD 07:56 AM [facility] ONLY) Comment: Tests performed on Elder Shuttler (405) Ordering Provide r: NICOLAS ESCALERA Report Released Date/Time: Oct 21, 2020 10:35 AM Reporting Lab: [facility] [address] [facility] [address] Performing Lab: [facility] [address] [facility] [address] HEMOGLOBIN A1C 5.6 % 4.0-5.6 Oct 23, 2020 07:56 [facility] VITAMIN B-12 Specimen Type : SERUM AM [facility] Comment: Specim en 1+ Hemolysis Tests performed on Elder Shuttler (405) Ordering Provide r: NICOLAS ESCALERA Report Released Date/Time: Oct 21, 2020 10:35 AM Reporting Lab: [facility] [address] [facility] [address] Performing Lab: [facility] [address] [facility] [address] VITAMIN B-12 780 pg/mL 200-900 Social History: [...] took place. Date/Time Smoking Status/Tobacco Use Comment [facility] Oct 26, 2019 09:30 AM VA-TOBACCO QUIT 1 TO < 5 YRS [place] [facility] Dec 09, 2018 10:48 AM LIFETIME NON-TOBACCO USER [facility] Aug 04, 2018 03:07 PM VA-TOBACCO FORMER USER [place] HE [facility] Aug 04, 2018 03:07 PM VA-TOBACCO QUIT 1 TO < 5 YRS [facility] Oct 05, 2017 10:33 AM CURRENT SMOKER [facility] Lang [facility] 2 ppd Oct 05, 2017 10:33 AM V1-PT READY TO QUIT TOBACCO USE [facility] Oct 20, 2016 09:35 AM QUIT TOBACCO USE 1-7 YEARS AGO [facility] 1.5 ago Nov 05, 2015 01:31 PM QUIT TOBACCO USE 1-7 YEARS AGO [facility] Jul 24, 2014 08:39 AM QUIT TOBACCO USE 1-7 YEARS AGO [facility] Jul 28, 2013 09:49 AM QUIT TOBACCO USE 1-7 YEARS AGO [facility] MCDANIELT [facility] Oct 26, 2012 12:34 PM QUIT TOBACCO USE IN PAST YEAR [facility] MCDANIELT [facility] Sep 29, 2011 08:35 AM QUIT TOBACCO USE 1-7 YEARS AGO [facility] MCDANIELT [facility] February 10, 2011 02:44 PM QUIT TOBACCO USE IN PAST YEAR [facility] MCDANIELT [facility] Advance Directives: All historical and current [...] 2017 ADVANCE DIRECTIVE RUBIN ABDUL [facility] [facility] [facility] Encounter Notes: All associated encounter notes This section contains the clinical notes associated to the Encounter. Date/Time Encounter Note(s) Provider Source Sep 24, 2020 10:56 AM TELEPHONE ENCOUNTER NOTE: LATANYA KAMARA NERI [facility] LOCAL TITLE: VISN 1 CCC ACTION REQUIRED [facility] STANDARD TITLE: TELEPHONE ENCOUNTER NOTE DATE OF NOTE: SEP 24, 2020@10:56:26 ENTRY DATE: SEP 24, 2020@10:58:12 AUTHOR: LATANYA KAMARA EXP COSIGNER: URGENCY: STATUS: COMPLETED VISN 1 CCC ACTION REQUIRED Has ADDENDA * Type of call: CLINICAL INFORMATION / ADMIN. Caller Response: SENT TO PACT The patient, RUSSELL MCGOVERN ([id number]) Alireza ne: [phone] called the call center. Comments: Pt lost his left hearing aid. Can a replacement be ordered? Evaluation/Management Code: HC PRO PHONE CALL 5- 10 MIN ([id number]). Starting at: 09/24/2020 @ 10:56:26 AM Ending at: 09/24/2020 @ 10:58:04 AM Length: 1 minutes. Author: LATANYA KAMARA Caller Area: * [place] Chief Complaint: Not applicable to call. Class Code: Other specified counseling. Contact Patient's Email Address: [email or web address] /trish/ LATANYA KAMARA Advanced Blood Bank Laboratory Technologist Signed: 09/24/2020 10:58 Receipt Acknowledged By: 09/25/2020 13:20 /trish/ Au. Hemant Rubio [facility]-A Staff Centrifugal Wax Molder 09/25/2020 ADDENDUM STATUS: COMPLETED Ordered Left L&D. [place] will need to be schedu led for programming once aid arrives. RTC placed. /trish/ Gertrudis Rubio CCC-A Staff Centrifugal Wax Molder Signed: 09/25/2020 13:17 Receipt Acknowledged By: * AWAITING SIGNATURE * LATANYA KAMARA * AWAITING SIGNATURE * BHARATHI VELARDE * AWAITING SIGNATURE * MALKA FLORES
--- OUTSIDE RECORDS SUMMARY | 2020-12-20 10:56 | XMS_ITS | Encounter Summary ---
:1960 Author Organization [facility] rs Address [address] [place] [address] Care Team Providers Name Role Phone NICOLAS [...] MEDICARE MEDICARE PART Mar 27, PART B [id number] SAVANNAH MCGOVERN PATIENT (WNR) (M) B 2018 PQ95 1 D[place] MEDICARE MEDICARE PART Apr 27, PART A [id number] PATIENT (WNR) (M) A 2005 PQ95 1 RUSSELL JONES -FO TRICA Mar 27, 451 [id number] [phone] PRITRISH TSI PATIENT R-LIFE RE 2018 [id number] DNEY -FO TFL Mar 27, [id number] [phone] PRIShaye MACIASSI PATIENT R-LIFE 2018 [id number] DNEY UNITED MEDICARE MCR(W Sep 27, [id number] [phone] GREENSKEEPER,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 Date/Time Encounter Type Encounter Reason Provider Source Description Aug 14, 2020 Outpatient TELEPHONE/SURGERY ICD-10-CM M79.673 KATHLEEN BURNS 09:41 AM Encounter Pain in unspecified foot with Provider Comments: Foot pain ([facility] [id number]) IHE Encounter Template Text not used by [facility] Assessments - Encounter Diagnoses This section includes the primary and secondary diagnoses documented forthe Encounter. Date/Time Primary/Secondary Diagnosis Name Provider Source Diagnosis Aug 14, 2020 PRIMARY Pain in KENDALL BURNS 09:41 AM unspecified foot [facility] Plan of Treatment: Future Appointments (+ 6 months) and Future Tests (+/- 45 days) The Plan of Treatment section includes future care activities for the patient from all [place] treatment facilities. This section includes future appointments and future orders which are active, pending or scheduled.Future Appointments This section includes appointments that were scheduled to occur 6 months from the date of the Encounter, up to a maximum of 20 appointments. The data comes from all [facility]. Appointment Date/Time Appointment Type Appointment Facili ty Name Aug 15, 2020 02:00 PM AMB[place]ORY [place] [facility] Aug 15, 2020 02:30 PM [place] [place] [facility] Oct 23, 2020 09:01 AM [place] [facility] Oct 28, 2020 09:15 AM AMBULATORY - [place] [facility] [place] [facility] Nov 29, 2020 09:15 AM [place]ORY - [place] [facility] Dec 04, 2020 08:30 AM [facility]ORY - NONE [place] [facility] Dec 04, 2020 09:00 AM [place] [facility] Dec 27, 2020 08:30 AM AMBUL[place]ORY - NONE [place] [facility] Social History: Smoking Status (Most current) and Tobacco Use (All prior to encounter date) This section includes the most current, and the historical, smoking and tobacco-related health factors from the [place] facility where the Encounter took place.Current Smoking Status This section includes the most current smoking, or tobacco-related health factor, from the [place] facility where the Encounter took place. Date/Time Current Smoking Status Comment Facility Oct 26, 2019 09:30 AM [place]-TOBACCO QUIT 1 TO < 5 YRS [place] [facility] Tobacco Use History This section includes a history of the smoking, or tobacco-related health factors, that were collected on or before the date of the Encounter. The data comes from the [place] facility where the Encounter took place. Date/Time Smoking Status/Tobacco Use Comment Facil ity Oct 26, 2019 09:30 AM VA-TOBACCO QUIT 1 TO < 5 YRS [facility] Dec 09, 2018 10:48 AM LIFETIME NON-TOBACCO USER [facility] Aug 04, 2018 03:07 PM VA-TOBACCO FORMER USER [facility] Aug 04, 2018 03:07 PM VA-TOBACCO QUIT 1 TO < 5 YRS [facility] Oct 05, 2017 10:33 AM CURRENT SMOKER [facility] 2 ppd Oct 05, 2017 10:33 AM V1-PT READY TO QUIT TOBACCO USE [facility] Oct 20, 2016 09:35 AM QUIT TOBACCO USE 1-7 YEARS AGO [facility] 1.5 ago Nov 05, 2015 01:31 PM QUIT TOBACCO USE 1-7 YEARS AGO [facility] Jul 24, 2014 08:39 AM QUIT TOBACCO USE 1-7 YEARS AGO [facility] Jul 28, 2013 09:49 AM QUIT TOBACCO USE 1-7 YEARS AGO [facility] Oct 26, 2012 12:34 PM QUIT TOBACCO USE IN PAST YEAR [facility] Sep 29, 2011 08:35 AM QUIT TOBACCO USE 1-7 YEARS AGO [facility] February 10, 2011 02:44 PM QUIT TOBACCO USE IN PAST YEAR [facility] Advance Directives: All historical and current Section Date Range: From patient's date of to the date document was created. This section includes ALL of a patient's completed or amended [place] Advance and Rescinded Directives. The entries below indicate that a directive exists for the patient, but an actual copy is not included with this document. The data comes from all [place] facilities. Date Advance Directives Provider Source Nov 29, 2017 ADVANCE DIRECTIVE RUBIN ABDUL [facility] Encounter Notes: All associated encounter notes This section contains the clinical notes associated to the Encounter. Date/Time Encounter Note(s) Provider Source Aug 14, 2020 09:41 AM PODIATRY TELEPHONE ENCOUNTER NOTE: Gonzalez BURNS [facility] TITLE: Podiatry/Telephone Note [facility] STANDARD TITLE: PODIATRY TELEPHONE ENCOUNTER NOT E DATE OF NOTE: AUG 14, 2020@09:41 ENTRY DATE: AUG 14, 2020@09:41:48 AUTHOR: KENDALL BURNS EXP COSIGNER: URGENCY: STATUS: COMPLETED Podiatry/Telephone Note Has ADDENDA Reason for call: Schedule at risk foot c are appointment for painfull callouses COVID Screened: Negative The patient noted the following in clini sunshine review for changes of the foot and ankle exam: Unable to reach patient. This PMA left message with spouse to have patient give the [facility] a call back at [phone]. desk clerks supervisor, When patient calls back, ple ase offer patient tomorrow 08/15 at either 1400 or 1500. This PMA has not put an RTC in un til we know for certain that patient can make either of t hose times. Please alert me whether or not patient can make those time slots or if they need a different date and time, thank you. Time spent with the patient on the phone: 5 mins . The patient is educated to contact us with any u rgent/emergent needs during the COVID pandemic. /trish/ KENDALL BURNS Podiatric Photogrammetrist Signed: 08/14/2020 09:45 Receipt Acknowledged By: 08/14/2020 12:46 /trish/ PHU SANTIAGO Medical Support Ass istant 08/14/2020 ADDENDUM STATUS: COMPLETED If patient calls back please schedule with Jaye alexandra 30 per TP. /es/ BHARATHI VELARDE Signed: 08/14/2020 09:57 08/14/2020 ADDENDUM STATUS: COMPLETED The has accepted the 08/15/20 @ 2:00, pl ease enter RTC /trish/ PHU SANTIAGO Land Survey Technician Signed: 08/14/2020 12:44
--- OUTSIDE RECORDS SUMMARY | 2020-12-20 10:56 | XMS_ITS | Encounter Summary ---
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 Date/Time Encounter Type Encounter Reason Provider Source Description Aug 15, 2020 Outpatient GERIPACT ICD-10-CM Z23 RONALRE 02:30 PM Encounter Encounter for VANESA MIX immunization with Provider Comments: Encounter for Immunization IHE Encounter Template Text not used by VA Assessments - Encounter Diagnoses This section includes the primary and secondary diagnoses documented forthe Encounter. Date/Time Primary/Secondary Diagnosis Name Provider Source Diagnosis Aug 15, 2020 PRIMARY Encounter for CUBA VILLEDA 03:57 PM immunization ECCA MIX [facility] Plan of Treatment: Future Appointments (+ [...] 20 appointments. The data comes from all [facility]. Appointment Date/Time Appointment Type Appointment Facili ty Name Oct 23, 2020 09:01 AM AMBULATORY - MEDICINE [facility] Oct 28, 2020 09:15 AM AMBULATORY - REHAB MEDICINE [place] [facility] Nov 29, 2020 09:15 AM AMBULATORY - NONE [facility] Dec 04, 2020 08:30 AM AMBULATORY - NONE [facility] Dec 04, 2020 09:00 AM AMBULATORY - SURGERY [facility] Dec 27, 2020 08:30 AM AMBULATORY - NONE [facility] Immunizations: All administered on the encounter date This section contains immunizations associated to the Encounter. Immunization Series Date Issued Reaction Comments ZOSTER RECOMBINANT 2 Aug 15, 2020 Social History: Smoking Status (Most current) and Tobacco Use (All prior to encounter date) This section includes the most current, and the historical, smoking and tobacco-related health factors from the [place] facility where the Encounter took place.Current Smoking Status This section includes the most current smoking, or tobacco-related health factor, from the [place] facility where the Encounter took place. Date/Time Current Smoking Status Comment Facility Oct 26, 2019 09:30 AM VA-TOBACCO QUIT 1 TO < 5 YRS [facility] Tobacco Use History This section includes a history of the smoking, or tobacco-related health factors, that were collected on or before the date of the Encounter. The data comes from the [place] facility where the Encounter took place. Date/Time Smoking Status/Tobacco Use Comment Facil ity Oct 26, 2019 09:30 AM VA-TOBACCO QUIT 1 TO < 5 YRS [facility] Dec 09, 2018 10:48 AM LIFETIME NON-TOBACCO USER [facility] Aug 04, 2018 03:07 PM VA-TOBACCO FORMER USER [facility] Aug 04, 2018 03:07 PM VA-TOBACCO QUIT 1 TO < 5 YRS [facility] Oct 05, 2017 10:33 AM CURRENT SMOKER [facility] 2 ppd Oct 05, 2017 10:33 AM V1-PT READY TO QUIT TOBACCO USE [facility] Oct 20, 2016 09:35 AM QUIT TOBACCO USE 1-7 YEARS AGO [facility] 1.5 ago Nov 05, 2015 01:31 PM QUIT TOBACCO USE 1-7 YEARS AGO [facility] Jul 24, 2014 08:39 AM QUIT TOBACCO USE 1-7 YEARS AGO [facility] Jul 28, 2013 09:49 AM QUIT TOBACCO USE 1-7 YEARS AGO [facility] Oct 26, 2012 12:34 PM QUIT TOBACCO USE IN PAST YEAR [facility] Sep 29, 2011 08:35 AM QUIT TOBACCO USE 1-7 YEARS AGO [facility] February 10, 2011 02:44 PM QUIT TOBACCO USE IN PAST YEAR [facility] Advance Directives: All historical and current Section Date Range: From patient's date of to the date document was created. This section includes ALL of a patient's completed or amended [place] Advance and Rescinded Directives. The entries below indicate that a directive exists for the patient, but an actual copy is not included with this document. The data comes from all [place] facilities. Date Advance Directives Provider Source Nov 29, 2017 ADVANCE DIRECTIVE RUBIN ABDUL [facility] Encounter Notes: All associated encounter notes This section contains the clinical notes associated to the Encounter. Date/Time Encounter Note(s) Provider Source Aug 15, 2020 03:55 PM PRIMARY CARE NOTE: RONY VILLEDA [facility] LOCAL TITLE: Injection Note [facility] STANDARD TITLE: PRIMARY CARE NOTE DATE OF NOTE: AUG 15, 2020@15:55 ENTRY DATE: AUG 15, 2020@15:56:02 AUTHOR: RONY VILLEDA COSIGNER: URGENCY: STATUS: COMPLETED Zoster Vaccine (Shingrix): The patient received recombinant zoster vaccine (RZV) 0.5 ml IM in Left deltoid. 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 /trish/ RONY VILLEDA Registered Nurse Signed: 08/15/2020 15:57
--- OUTSIDE RECORDS SUMMARY | 2020-12-20 10:56 | XMS_ITS | Encounter Summary ---
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 Date/Time Encounter Type Encounter Reason Provider Source Description Sep 09, 2020 03:08 Outpatient PRIMARY BLACK,JENELLE PM Encounter CARE/MEDICINE [facility] IHE Encounter Template Text not used by [place] Plan of Treatment: Future Appointments (+ 6 months) and Future Tests (+/- 45 days) The Plan of Treatment section includes future care activities for the patient from all [place] treatment facilities. This section includes future appointments and future orders which are active, pending or scheduled.Future Appointments This section includes appointments that were scheduled to occur 6 months from the date of the Encounter, up to a maximum of 20 appointments. The [facility] comes from all [facility] Appointment Date/Time Appointment Type Appointment Facili ty Name Oct 23, 2020 09:01 AM AMBULATORY - MEDICINE [facility] Oct 28, 2020 09:15 AM AMBULATORY - REHAB MEDICINE [facility] Nov 29, 2020 09:15 AM AM[facility]ULATORY - NONE [facility] Dec 04, 2020 08:30 AM [facility] [place] [facility] Dec 04, 2020 09:00 AM AM[facility]ULATORY - SURGERY [facility] Dec 27, 2020 08:30 AM [facility] [place] [facility] Social History: Smoking Status (Most current) and Tobacco Use (All prior to encounter date) This section includes the most current, and the historical, smoking and tobacco-related health factors from the [place] facility where the Encounter took place.Current Smoking Status This section includes the most current smoking, or tobacco-related health factor, from the [place] facility where the Encounter took place. Date/Time Current Smoking Status Comment Facility Oct 26, 2019 09:30 AM [place]-TOBACCO QUIT 1 TO < 5 YRS [facility] Tobacco Use History This section includes a history of the smoking, or tobacco-related health factors, that were collected on or before the date of the Encounter. The data comes from the [place] facility where the Encounter took place. Date/Time Smoking Status/Tobacco Use Comment [facility] Oct 26, 2019 09:30 [facility] Dec 09, 2018 10:48 AM LIFETIME NON-TOBACCO USER [facility] Aug 04, 2018 03:07 PM VA-TOBACCO FORMER USER [facility] Aug 04, 2018 03:07 PM VA-TOBACCO QUIT 1 TO < 5 YRS [facility] Oct 05, 2017 10:33 AM CURRENT SMOKER [facility] 2 ppd Oct 05, 2017 10:33 AM V1-PT READY TO QUIT TOBACCO USE [facility] Oct 20, 2016 09:35 AM QUIT TOBACCO USE 1-7 YEARS AGO [facility] 1.5 ago Nov 05, 2015 01:31 PM QUIT TOBACCO USE 1-7 YEARS AGO [facility] Jul 24, 2014 08:39 AM QUIT TOBACCO USE 1-7 YEARS AGO [facility] Jul 28, 2013 09:49 AM QUIT TOBACCO USE 1-7 YEARS AGO [facility] Oct 26, 2012 12:34 PM QUIT TOBACCO USE IN PAST YEAR [facility] Sep 29, 2011 08:35 AM QUIT TOBACCO USE 1-7 YEARS AGO [facility] February 10, 2011 02:44 PM QUIT TOBACCO USE IN PAST YEAR [facility] Advance Directives: All historical and current Section Date Range: From patient's date of to the date document was created. This section includes ALL of a patient's completed or amended [place] Advance and Rescinded Directives. The entries below indicate that a directive exists for the patient, but an actual copy is not included with this document. The data comes from all [place] facilities. Date Advance Directives Provider Source Nov 29, 2017 ADVANCE DIRECTIVE RUBIN ABDUL [facility] Encounter Notes: All associated encounter notes This section contains the clinical notes associated to the Encounter. Date/Time Encounter Note(s) Provider Source Sep 09, 2020 03:08 PM PRIMARY CARE SECURE MESSAGING: JENELLE DAVIS [facility] LOCAL TITLE: PRIMARY CARE SECURE MESSAGING [facility] STANDARD TITLE: PRIMARY CARE SECURE MESSAGING DATE OF NOTE: SEP 09, 2020@15:08:37 ENTRY DATE: SEP 09, 2020@15:08:37 AUTHOR: JENELLE DAVIS EXP COSIGNER: URGENCY: STATUS: COMPLETED ------Original Message Sent: 09/09/2020 02:56 PM From: RUSSELL MCGOVERN To: [email or web address] Subject: need refill CELECOXIB 100MG/ATOVASTATION CALCIUM 20 MG/METOP ROLOL SUCCINATE 25 MG/POLYETHYLENE GLYCOL 3350 ORAL PWDR/ /lulu/ JENELLE DAVIS MSN, RN Signed: 09/09/2020 15:08 Receipt Acknowledged By: * AWAITING SIGNATURE * COURTNEY ESCALERA
--- OUTSIDE RECORDS SUMMARY | 2020-12-20 10:56 | XMS_ITS | Encounter Summary ---
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 Date/Time Encounter Type Encounter Reason Provider Source Description Aug 15, 2020 OFFICE/OUTPATIE PODIATRY ICD-10-CM Q66.50 [place] 02:00 PM NT VISIT EST Congenital pes ROLINE E planus, unspecified foot with Provider Comments: Congenital Pes Planus, unspecified Foot IHE Encounter Template Text not used by [facility] Assessments - Encounter Diagnoses This section includes the primary and secondary diagnoses documented forthe Encounter. Date/Time Primary/Secondary Diagnosis Name Provider Source Diagnosis Aug 26, 2020 PRIMARY Congenital pes KENDALL BURNS 02:19 PM planus, [facility] unspecified foot Aug 26, 2020 SECONDARY Corns and KENDALL BURNS 02:19 PM callosities [facility] Plan of Treatment: Future Appointments (+ 6 months) and Future Tests (+/- 45 days) The Plan of Treatment section includes future care activities for the patient from all [place] treatment facilities. This section includes future appointments and future orders which are active, pending or scheduled.Future Appointments This section includes appointments that were scheduled to occur 6 months from the date of the Encounter, up to a maximum of 20 appointments. The data comes from all [facility]. Appointment Date/Time Appointment Type Appointment Facili ty Name Oct 23, 2020 09:01 AM AMBULATORY - MEDICINE [facility] Oct 28, 2020 09:15 AM AMBULATORY - REHAB MEDICINE [facility] Nov 29, 2020 09:15 AM AMBULATORY - NONE [facility] Dec 04, 2020 08:30 AM AMBULATORY - NONE [facility] Dec 04, 2020 09:00 AM AMBULATORY - SURGERY [facility] Dec 27, 2020 08:30 AM AMBULATORY - NONE [facility] Social History: Smoking Status (Most current) and Tobacco Use (All prior to encounter date) This section includes the most current, and the historical, smoking and tobacco-related health factors from the [place] facility where the Encounter took place.Current Smoking Status This section includes the most current smoking, or tobacco-related health factor, from the [place] facility where the Encounter took place. Date/Time Current Smoking Status Comment Facility Oct 26, 2019 09:30 AM VA-TOBACCO QUIT 1 TO < 5 YRS [facility] Tobacco Use History This section includes a history of the smoking, or tobacco-related health factors, that were collected on or before the date of the Encounter. The data comes from the [place] facility where the Encounter took place. Date/Time Smoking Status/Tobacco Use Comment Facil ity Oct 26, 2019 09:30 AM VA-TOBACCO QUIT 1 TO < 5 YRS [facility] Dec 09, 2018 10:48 AM LIFETIME NON-TOBACCO USER [facility] Aug 04, 2018 03:07 PM VA-TOBACCO FORMER USER [place] [facility] HE [facility] Aug 04, 2018 03:07 PM VA-TOBACCO QUIT 1 TO < 5 YRS [facility] Oct 05, 2017 10:33 AM CURRENT SMOKER [facility]A Lang [facility] 2 ppd Oct 05, 2017 10:33 AM V1-PT READY TO QUIT TOBACCO USE [facility] Oct 20, 2016 09:35 AM QUIT TOBACCO USE 1-7 YEARS AGO [facility] 1.5 ago Nov 05, 2015 01:31 PM QUIT TOBACCO USE 1-7 YEARS AGO [facility] Jul 24, 2014 08:39 AM QUIT TOBACCO USE 1-7 YEARS AGO [facility] Jul 28, 2013 09:49 AM QUIT TOBACCO USE 1-7 YEARS AGO [facility] Oct 26, 2012 12:34 PM QUIT TOBACCO USE IN PAST YEAR [facility] Sep 29, 2011 08:35 AM QUIT TOBACCO USE 1-7 YEARS AGO [facility] February 10, 2011 02:44 PM QUIT TOBACCO USE IN PAST YEAR [facility] Advance Directives: All historical and current Section Date Range: From patient's date of to the date document was created. This section includes ALL of a patient's completed or amended [place] Advance and Rescinded Directives. The entries below indicate that a directive exists for the patient, but an actual copy is not included with this document. The data comes from all [place] facilities. Date Advance Directives Provider Source Nov 29, 2017 ADVANCE DIRECTIVE RUBIN ABDUL [facility] Encounter Notes: All associated encounter notes This section contains the clinical notes associated to the Encounter. Date/Time Encounter Note(s) Provider Source Aug 15, 2020 02:02 PM PODIATRY OUTPATIENT NOTE: KENDALL BURNS [facility] TITLE: Podiatry/Outpatient Note [facility] STANDARD TITLE: PODIATRY OUTPATIENT NOTE DATE OF NOTE: AUG 15, 2020@14:02 ENTRY DATE: AUG 15, 2020@14:02:16 AUTHOR: KENDALL BURNS EXP COSIGNER: RIGO GERARDO URGENCY: STATUS: COMPLETED Patient is a 59 y/o non-DM male who is s een in clinic for care of painfull callouses. Patient states, they use a pumice stone for their callouses however, it doesn't get it all off. Complete visual foot exam noted; nails are WNL, patient trims own nails . IPK right submet 3, right medial hallux, and left mtpj. No open lesions, no SOI. Pain: 4/10 upon palpation of IPK right sub 3. Allergies: PENICILLIN Non-DM - Lab A1c (last three) No data available Active Outpatient Medications (excluding Supplie s): Active [...] SA TAB TAKE ONE-H EARLE TABLET ACTIVE BY MOUTH AT BEDTIME TAKES FOR MIGRAINE VA EVENTION 6) OMEPRAZOLE 20MG EC CAP TAKE [...] CONSTIPATION-- START ONCE A DAY IN EVENING PMH: Active Problem list: Code Description R69. Screening status ([facility] [id number]) K41.91 Left femoral hernia ([facility] [id number]) Z87.891 History of tobacco use ([facility] [id number]) R69. Diverticulosis ([facility] [id number]) G43.009 Migraine without aura ([facility] [id number]) M79.673 Foot pain ([facility] [id number]) E78.5 Hyperlipidemia ([facility] [id number]) K22.70 Barretts esophagus ([facility] [id number]) R69. Adult screening status ([facility] [id number]) 268.9 Vitamin D Deficiency (ICD-9-CM 268.9) I10. Hypertension ([facility] [id number]) F32.0 Depression ([facility] [id number]) Shoe/Amb: VA issued shoes in good condition /ind ependent Social: Patient quit smoking 6 months ago. Vasc: palpable pulses x4, CR <3sec., + digital h air growth. Derm: Nails are WNL, patient trims own n ails. IPK right submet 3, right medial hallux, and left mtpj. Neurologic: S-W 5.07 intact 6/6 Vibratory: Intact Orthopedic: Pes planus and fat pad atrophy. IMP: 1. IPK X1 2. HPK X2 3. Pes planus 4. Fat pad atrophy. PLAN: 1. Foot exam and education 2. Reduced DOMINIQUE X1 3. Reduced HPK X2 4. Replaced X2 anti-shox insoles with met pads o n left insole. 5. This PMA explained to patient that they do no t qualify for routine at risk nail care. However, explained to patient that i f their callous starts to get painful again, to give podiatry a call. Also, if they need more insoles, to reach out to podiatry, patient agreed. /trish/ KENDALL BURNS Podiatric Pheresis Nurse Signed: 08/15/2020 14:14 /trish/ RIGO GERARDO DPM Cosigned: 08/15/2020 14:18
--- OUTSIDE RECORDS SUMMARY | 2020-12-20 10:57 | XMS_ITS ---
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 Date/Time Encounter Type Encounter Description Reason Provider Source Aug 08, 2020 11:05 Outpatient Encounter ADMIN CODY SORIANO AM (LUÍS) BLANK Encounter Template Text not used by [place] Plan of Treatment: Future Appointments (+ 6 months) and Future Tests (+/- 45 days) The Plan of Treatment section includes future care activities for the patient from all [place] treatment facilities. This section includes future appointments and future orders which are active, pending or scheduled.Future Appointments This section includes appointments that were scheduled to occur 6 months from the date of the Encounter, up to a maximum of 20 appointments. The data comes from all [facility]. Appointment Date/Time Appointment Type Appointment Facili ty Name Aug 15, 2020 02:00 PM [place] [facility] Aug 15, 2020 02:30 PM [place] [facility] Oct 23, 2020 09:01 AM [place]IC[place] [facility] Oct 28, 2020 09:15 AM [place] [facility] Nov 29, 2020 09:15 AM AM[facility]ORY - [place] [facility] Dec 04, 2020 08:30 AM [facility]ORY - [facility] [facility] Dec 04, 2020 09:00 AM [facility] [place] [facility] Dec 27, 2020 08:30 AM AMBULATORY - NONE [place] [facility] Social History: Smoking Status (Most current) and Tobacco Use (All prior to encounter date) This section includes the most current, and the historical, smoking and tobacco-related health factors from the [place] facility where the Encounter took place.Current Smoking Status This section includes the most current smoking, or tobacco-related health factor, from the [place] facility where the Encounter took place. Date/Time Current Smoking Status Comment Facility Oct 26, 2019 09:30 AM [place]-TOBACCO QUIT 1 TO < 5 YRS [facility] Tobacco Use History This section includes a history of the smoking, or tobacco-related health factors, that were collected on or before the date of the Encounter. The data comes from the [place] facility where the Encounter took place. Date/Time Smoking Status/Tobacco Use Comment [facility] Oct 26, 2019 09:30 AM [place]-TOBACCO QUIT 1 TO < 5 YRS [place] [facility] Dec 09, 2018 10:48 AM LIFETIME NON-TOBACCO USER [facility] Aug 04, 2018 03:07 PM VA-TOBACCO FORMER USER [facility] Aug 04, 2018 03:07 PM VA-TOBACCO QUIT 1 TO < 5 YRS [facility] Oct 05, 2017 10:33 AM CURRENT SMOKER [facility] 2 ppd Oct 05, 2017 10:33 AM V1-PT READY TO QUIT TOBACCO USE [facility] Oct 20, 2016 09:35 AM QUIT TOBACCO USE 1-7 YEARS AGO [facility] 1.5 ago Nov 05, 2015 01:31 PM QUIT TOBACCO USE 1-7 YEARS AGO [facility] Jul 24, 2014 08:39 AM QUIT TOBACCO USE 1-7 YEARS AGO [facility] Jul 28, 2013 09:49 AM QUIT TOBACCO USE 1-7 YEARS AGO [facility] Oct 26, 2012 12:34 PM QUIT TOBACCO USE IN PAST YEAR [facility] Sep 29, 2011 08:35 AM QUIT TOBACCO USE 1-7 YEARS AGO [facility] February 10, 2011 02:44 PM QUIT TOBACCO USE IN PAST YEAR [facility] Advance Directives: All historical and current Section Date Range: From patient's date of to the date document was created. This section includes ALL of a patient's completed or amended [place] Advance and Rescinded Directives. The entries below indicate that a directive exists for the patient, but an actual copy is not included with this document. The data comes from all [place] facilities. Date Advance Directives Provider Source Nov 29, 2017 ADVANCE DIRECTIVE RUBIN ABDUL [facility] Encounter Notes: All associated encounter notes This section contains the clinical notes associated to the Encounter. Date/Time Encounter Note(s) Provider Source Aug 08, 2020 11:05 AM ADMINISTRATIVE NOTE: BHARATHI VELARDE [facility] LOCAL TITLE: Has Admin Note [facility] TITLE: ADMINISTRATIVE NOTE DATE OF NOTE: AUG 08, 2020@11:05 ENTRY DATE: AUG 08, 2020@11:05:33 AUTHOR: BHARATHI VELARDE EXP COSIGNER: URGENCY: STATUS: COMPLETED Has Admin Note Has ADDENDA Reason for call Clinic Name:PODIATRY [place] called the front line leader today requesting a n appt. Mr. Pal states he has a painful callous on th e bottom of his RIGHT foot. Home and Cell numbers were confirmed, home numbe r is best to call. Please advise. thank you /lulu/ BHARATHI VELARDE Signed: 08/08/2020 11:07 Receipt Acknowledged By: 08/14/2020 09:41 /lulu/ KENDALL BURNS Podiatric Medical A ssistant 08/14/2020 ADDENDUM STATUS: COMPLETED See podiatry telephone note 08/14/20. /lulu/ KENDALL BURNS Podiatric Bus Analyst Signed: 08/14/2020 09:41
--- OUTSIDE RECORDS SUMMARY | 2020-12-20 10:57 | XMS_ITS ---
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 Date/Time Encounter Type Encounter Description Reason Provider Source Jun 13, 2020 12:07 Outpatient Encounter ADMIN PAT ACTIVTIES PM (LUÍS) IHShaye Encounter Template Text not used by [place] Plan of Treatment: Future Appointments (+ 6 [...] 20 appointments. The data comes from all [facility]. Appointment Date/Time Appointment Type Appointment Facili ty Name Aug 15, 2020 02:00 PM AMBULATORY - SURGERY [facility] Aug 15, 2020 02:30 PM AMBULATORY - MEDICINE [facility] Oct 23, 2020 09:01 AM AMBULATORY - MEDICINE [facility] Oct 28, 2020 09:15 AM AMBULATORY - [place] [facility] Nov 29, 2020 09:15 AM AMBULATORY - NONE [facility] Dec 04, 2020 08:30 AM AMBULATORY - NONE [facility] Dec 04, 2020 09:00 AM AMBULATORY - SURGERY [facility] Social History: Smoking Status (Most current) [...] [place]-TOBACCO QUIT 1 TO < 5 YRS [facility] Tobacco Use History This section includes a history of the smoking, or tobacco-related health factors, that were collected on or before the date of the Encounter. The data comes from the [place] facility where the Encounter took place. Date/Time Smoking Status/Tobacco Use Comment [facility] Oct 26, 2019 09:30 AM [place]-TOBACCO QUIT 1 TO < 5 YRS [facility] Dec 09, 2018 10:48 AM LIFETIME NON-TOBACCO USER [facility] Aug 04, 2018 03:07 PM VA-TOBACCO FORMER USER [place] [facility]IZAL[facility] Aug 04, 2018 03:07 PM VA-TOBACCO QUIT 1 TO < 5 YRS [facility] Oct 05, 2017 10:33 AM CURRENT SMOKER [facility] 2 ppd Oct 05, 2017 10:33 AM V1-PT READY TO QUIT TOBACCO USE [facility] Oct 20, 2016 09:35 AM QUIT TOBACCO USE 1-7 YEARS AGO [facility] 1.5 ago Nov 05, 2015 01:31 PM QUIT TOBACCO USE 1-7 YEARS AGO [facility] Jul 24, 2014 08:39 AM QUIT TOBACCO USE 1-7 YEARS AGO [facility] Jul 28, 2013 09:49 AM QUIT TOBACCO USE 1-7 YEARS AGO [facility] Oct 26, 2012 12:34 PM QUIT TOBACCO USE IN PAST YEAR [facility] Sep 29, 2011 08:35 AM QUIT TOBACCO USE 1-7 YEARS AGO [facility] February 10, 2011 02:44 PM QUIT TOBACCO USE IN PAST YEAR [facility] Advance Directives: All historical and [...] 2017 ADVANCE DIRECTIVE RUBIN ABDUL [facility] Encounter Notes: All associated encounter notes This section contains the clinical notes associated to the Encounter. Date/Time Encounter Note(s) Provider Source Jun 13, 2020 12:07 PM PRIMARY CARE ADMINISTRATIVE NOTE: NESS HORTA [facility] LOCAL TITLE: Administrative Note/Primary Care [facility] STANDARD TITLE: PRIMARY CARE ADMINISTRATIVE NOTE DATE OF NOTE: JUN 13, 2020@12:07 ENTRY DATE: JUN 13, 2020@12:07:48 AUTHOR: NESS HORTA EXP COSIGNER: URGENCY: STATUS: COMPLETED Administrative Note/Primary Care Has ADDE NDA Patient called back today to reschedule with Yung-Suich. Please call patient to schedule. /lulu/ NESS HORTA Supervisory MSA Signed: 06/13/2020 12:09 Receipt Acknowledged By: 06/18/2020 15:48 /fabrice CHANCE Advanced Medical Green pport Spout Worker 06/14/2020 ADDENDUM STATUS: COMPLETED phone call to pt - spoke to , pt unavailable at time of call. states she will have pt call back to schedule /lulu/ RENARD CHANCE Advanced Insurance Sales Supervisor Signed: 06/14/2020 17:28 06/18/2020 ADDENDUM STATUS: COMPLETED phone call to pt - appt scheduled /fabrice CHANCE Advanced Insurance Sales Supervisor Signed: 06/18/2020 15:48
--- OUTSIDE RECORDS SUMMARY | 2020-12-20 10:57 | XMS_ITS ---
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 Date/Time Encounter Type Encounter Description Reason Provider Source Jun 17, 2020 01:42 Outpatient Encounter ADMIN PAT ACTIVTIES PM (LUÍS) [...] 20 appointments. The data comes from all [facility]. Appointment Date/Time Appointment Type Appointment Facili ty Name Aug 15, 2020 02:00 PM AMBULATORY - SURGERY [facility] Aug 15, 2020 02:30 PM AMBULATORY - MEDICINE [facility] Oct 23, 2020 09:01 AM AMBULATORY - MEDICINE [facility] Oct 28, 2020 09:15 AM AMBULATORY - [place] [facility] Nov 29, 2020 09:15 AM AMBULATORY - NONE [facility] Dec 04, 2020 08:30 AM AMBULATORY - NONE [facility] Dec 04, 2020 09:00 AM AMBULATORY - SURGERY [facility] Social History: Smoking Status (Most current) [...] [place]-TOBACCO QUIT 1 TO < [address] [facility] Tobacco Use History This section includes a history of the smoking, or tobacco-related health factors, that were collected on or before the date of the Encounter. The data comes from the [place] facility where the Encounter took place. Date/Time Smoking Status/Tobacco Use Comment [facility] Oct 26, 2019 09:30 AM [place]-TOBACCO QUIT 1 TO < [address] [facility] Dec 09, 2018 10:48 AM LIFETIME NON-TOBACCO USER [facility] Aug 04, 2018 03:07 PM VA-TOBACCO FORMER USER [place] [facility] [facility] Aug 04, 2018 03:07 PM VA-TOBACCO QUIT 1 TO < 5 YRS [facility] Oct 05, 2017 10:33 AM CURRENT SMOKER [facility] 2 ppd Oct 05, 2017 10:33 AM V1-PT READY TO QUIT TOBACCO USE [facility] Oct 20, 2016 09:35 AM QUIT TOBACCO USE 1-7 YEARS AGO [facility] 1.5 ago Nov 05, 2015 01:31 PM QUIT TOBACCO USE 1-7 YEARS AGO [facility] Jul 24, 2014 08:39 AM QUIT TOBACCO USE 1-7 YEARS AGO [facility] Jul 28, 2013 09:49 AM QUIT TOBACCO USE 1-7 YEARS AGO [facility] Oct 26, 2012 12:34 PM QUIT TOBACCO USE IN PAST YEAR [facility] Sep 29, 2011 08:35 AM QUIT TOBACCO USE 1-7 YEARS AGO [facility] February 10, 2011 02:44 PM QUIT TOBACCO USE IN PAST YEAR [facility] Advance Directives: All historical and current [...] 2017 ADVANCE DIRECTIVE RUBIN ABDUL [facility] Encounter Notes: All associated encounter notes This section contains the clinical notes associated to the Encounter. Date/Time Encounter Note(s) Provider Source Jun 17, 2020 01:42 PM ACCOUNTING OF DISCLOSURES NOTE: JYOTI MURRIETA [facility] LOCAL TITLE: STATE PRESCRIPTION DRUG MONITORING PROGRAM (SPDMP) [facility] STANDARD TITLE: ACCOUNTING OF DISCLOSURES NOTE DATE OF NOTE: JUN 17, 2020@13:42 ENTRY DATE: JUN 17, 2020@13:42:26 AUTHOR: DEONDRE MURRIETA EXP COSIGNER: URGENCY: STATUS: COMPLETED V1-STATE PRESCRIPTION DRUG MONITORING PROGRAM ([place] PDMP) The purpose of this query was a part of the medi cation reconciliation process for the: Review for patient safety. The following State Prescription Drug Monitoring Program(s) were queried for this patient: [facility] (01/13/2018: [place] information may be placed in the patient medical records that pertains to [place] specific data ONLY, not from an interstate query) [facility] No prescription(s) for controlled substances wer e found to be filled outside the [facility]. /lulu/ DEONDRE MURRIETA Signed: 06/17/2020 13:42
--- OUTSIDE RECORDS SUMMARY | 2020-12-20 10:57 | XMS_ITS | Encounter Summary ---
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 Date/Time Encounter Type Encounter Reason Provider Source Description Jul 12, 2020 09:45 Outpatient TELEPHONE TRIAGE MARINA RAHMAN AM Encounter E IHE Encounter Template Text not used by [facility] Plan of Treatment: Future Appointments (+ 6 months) and Future Tests (+/- 45 days) The Plan of Treatment section includes future care activities for the patient from all [place] treatment facilities. This section includes future appointments and future orders which are active, pending or scheduled.Future Appointments This section includes appointments that were scheduled to occur 6 months from the date of the Encounter, up to a maximum of 20 appointments. The data comes from all [facility]. Appointment Date/Time Appointment Type Appointment Facili ty Name Aug 15, 2020 02:00 PM AMBULATORY - SURGERY [facility] Aug 15, 2020 02:30 PM AMBULATORY - MEDICINE [facility] Oct 23, 2020 09:01 AM AMBULATORY - MEDICINE [facility] Oct 28, 2020 09:15 AM AMBULATORY - [facility]IC[facility] Nov 29, 2020 09:15 AM AM[facility]ULATORY - NONE [facility] Dec 04, 2020 08:30 AM [facility]ORY - NONE [facility] Dec 04, 2020 09:00 AM [facility] Dec 27, 2020 08:30 AM AMBULATORY - NONE [facility] Social History: Smoking Status (Most current) and Tobacco Use (All prior to encounter date) This section includes the most current, and the historical, smoking and tobacco-related health factors from the [place] facility where the Encounter took place.Current Smoking Status This section includes the most current smoking, or tobacco-related health factor, from the [place] facility where the Encounter took place. Date/Time Current Smoking Status Comment Facility Oct 26, 2019 09:30 AM [place]-TOBACCO QUIT 1 TO < 5 YRS [facility] Tobacco Use History This section includes a history of the smoking, or tobacco-related health factors, that were collected on or before the date of the Encounter. The data comes from the [place] facility where the Encounter took place. Date/Time Smoking Status/Tobacco Use Comment [facility] Oct 26, 2019 09:30 AM AR-TOBACCO QUIT 1 TO < 5 YRS [facility] Dec 09, 2018 10:48 AM LIFETIME NON-TOBACCO USER [place] [facility] Aug 04, 2018 03:07 PM VA-TOBACCO FORMER USER [place] [facility] Aug 04, 2018 03:07 PM VA-TOBACCO QUIT 1 TO < 5 YRS [facility]ANIEL[facility] Oct 05, 2017 10:33 AM CURRENT SMOKER [place]A LENNON [facility] 2 ppd Oct 05, 2017 10:33 AM V1-PT READY TO QUIT TOBACCO USE [place] MCDANIELT [facility] Oct 20, 2016 09:35 AM QUIT TOBACCO USE 1-7 YEARS AGO [facility] M[facility]ANIELT [facility] 1.5 ago Nov 05, 2015 01:31 PM QUIT TOBACCO USE 1-7 YEARS AGO [facility] MCDANIELT [facility] Jul 24, 2014 08:39 AM QUIT TOBACCO USE 1-7 YEARS AGO [facility] MCDANIELT [facility] Jul 28, 2013 09:49 AM QUIT TOBACCO USE 1-7 YEARS AGO [facility] MCDANIELT [facility] Oct 26, 2012 12:34 PM QUIT TOBACCO USE IN PAST YEAR [facility] MCDANIELT [facility] Sep 29, 2011 08:35 AM QUIT TOBACCO USE 1-7 YEARS AGO [facility] MCDANIELT [facility] February 10, 2011 02:44 PM QUIT TOBACCO USE IN PAST YEAR [facility] Advance Directives: All historical and current Section Date Range: From patient's date of to the date document was created. This section includes ALL of a patient's completed or amended VA Advance and Rescinded Directives. The entries below indicate that a directive exists for the patient, but an actual copy is not included with this document. The data comes from all [place] facilities. Date Advance Directives Provider Source Nov 29, 2017 ADVANCE DIRECTIVE RUBIN ABDUL [facility] Encounter Notes: All associated encounter notes This section contains the clinical notes associated to the Encounter. Date/Time Encounter Note(s) Provider Source Jul 12, 2020 09:45 AM TELEPHONE ENCOUNTER NOTE: HAIM RAHMAN LOCAL TITLE: VISN 1 CCC ACTION REQUIRED [facility] STANDARD TITLE: TELEPHONE ENCOUNTER NOTE DATE OF NOTE: JUL 12, 2020@09:45:45 ENTRY DATE: JUL 12, 2020@09:49:33 AUTHOR: GURPREET RAHMAN EXP COSIGNER: URGENCY: STATUS: COMPLETED VISN 1 CCC ACTION REQUIRED Has ADDENDA * Type of call: CLINICAL INFORMATION / ADMIN. Caller Response: SENT TO SPECIALTY FOR F/U The patient, RUSSELL MCGOVERN ([id number]) Alireza ne: called the call center. Comments: would like a new pair of glass m rose from his last script, and mail out to him, would like same frame etc as last time, and tinted. please call the if any questions or concerns Evaluation/Management Code: UNLISTED EVALUATION AND MANAGEMENT SERVICE ([id number]). Starting at: 07/12/2020 @ 9:45:45 AM Ending at: 07/12/2020 @ 9:48:51 AM Length: 3 minutes. Author: GURPREET RAHMAN Caller Area: * [place] Chief Complaint: Not applicable to call. Class Code: Other specified counseling. Contact Patient's Email Address: [email or web address] /trish/ GURPREET RAHMAN Advanced MSA Signed: 07/12/2020 09:49 Receipt Acknowledged By: 07/21/2020 21:22 /trish/ JOANA WOLFE OD CHIEF, OPTOMETRY 07/21/2020 ADDENDUM STATUS: COMPLETED Argillite's last J eye exam was 10/2016. Recommen d scheduling eye exam before ordering new Rx. Can offer OCC or first availabl e Spring 2020 any optometry provider. /trish/ JOANA WOLFE OD CHIEF, OPTOMETRY Signed: 07/21/2020 21:43 Receipt Acknowledged By: * AWAITING SIGNATURE * MALKA OSCAR * AWAITING SIGNATURE * PRICILLA BRIGGS
--- OUTSIDE RECORDS SUMMARY | 2020-12-20 10:57 | XMS_ITS ---
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 Date/Time Encounter Type Encounter Description Reason Provider Source Jun 09, 2020 12:20 Outpatient Encounter ADMIN PAT ACTIVTIES PM (LUÍS) IHShaye Encounter Template Text not used by [place] Plan of Treatment: Future Appointments (+ 6 months) and Future Tests (+/- 45 days) The Plan of Treatment section includes future care activities for the patient from all [place] treatment facilities. This section includes future appointments and future orders which are active, pending or scheduled.Future Appointments This section includes appointments that were scheduled to occur 6 months from the date of the Encounter, up to a maximum of 20 appointments. The data comes from all [facility]. Appointment Date/Time Appointment Type Appointment Facili ty Name Aug 15, 2020 02:00 PM AMBULATORY - SURGERY [facility] Aug 15, 2020 02:30 PM AMBULATORY - MEDICINE [facility] Oct 23, 2020 09:01 AM AMBULATORY - MEDICINE [facility] Oct 28, 2020 09:15 AM AMBULATORY - REHAB [facility]IC[facility] [facility] Nov 29, 2020 09:15 AM AMBULATORY - NONE [facility] Dec 04, 2020 08:30 AM AMBULATORY - NONE [facility] Dec 04, 2020 09:00 AM AMBULATORY - SURGERY [facility] Social History: Smoking Status (Most current) and Tobacco Use (All prior to encounter date) This section includes the most current, and the historical, smoking and tobacco-related health factors from the [place] facility where the Encounter took place.Current Smoking Status This section includes the most current smoking, or tobacco-related health factor, from the [place] facility where the Encounter took place. Date/Time Current Smoking Status Comment Facility Oct 26, 2019 09:30 AM [place]-TOBACCO QUIT 1 TO < 5 YRS [facility] Tobacco Use History This section includes a history of the smoking, or tobacco-related health factors, that were collected on or before the date of the Encounter. The data comes from the [place] facility where the Encounter took place. Date/Time Smoking Status/Tobacco Use Comment [facility] Oct 26, 2019 09:30 AM [place]-TOBACCO QUIT 1 TO < 5 YRS [facility] Dec 09, 2018 10:48 AM LIFETIME NON-TOBACCO USER [facility] Aug 04, 2018 03:07 PM VA-TOBACCO FORMER USER [place] ELIZAL[facility] Aug 04, 2018 03:07 PM VA-TOBACCO QUIT 1 TO < 5 YRS [facility] Oct 05, 2017 10:33 AM CURRENT SMOKER [facility] Lang [facility] 2 ppd Oct 05, 2017 10:33 AM V1-PT READY TO QUIT TOBACCO USE [facility] Oct 20, 2016 09:35 AM QUIT TOBACCO USE 1-7 YEARS AGO [facility] 1.5 ago Nov 05, 2015 01:31 PM QUIT TOBACCO USE 1-7 YEARS AGO [facility] Jul 24, 2014 08:39 AM QUIT TOBACCO USE 1-7 YEARS AGO [facility] Jul 28, 2013 09:49 AM QUIT TOBACCO USE 1-7 YEARS AGO [facility] Oct 26, 2012 12:34 PM QUIT TOBACCO USE IN PAST YEAR [facility] Sep 29, 2011 08:35 AM QUIT TOBACCO USE 1-7 YEARS AGO [facility] February 10, 2011 02:44 PM QUIT TOBACCO USE IN PAST YEAR [facility] Advance Directives: All historical and current Section Date Range: From patient's date of to the date document was created. This section includes ALL of a patient's completed or amended [place] Advance and Rescinded Directives. The entries below indicate that a directive exists for the patient, but an actual copy is not included with this document. The data comes from all [place] facilities. Date Advance Directives Provider Source Nov 29, 2017 ADVANCE DIRECTIVE RUBIN ABDUL [facility] Encounter Notes: All associated encounter notes This section contains the clinical notes associated to the Encounter. Date/Time Encounter Note(s) Provider Source Jun 09, 2020 12:21 PM PRIMARY CARE ADMINISTRATIVE NOTE: NESS HORTA [facility] LOCAL TITLE: Administrative Note/Primary Care [facility] STANDARD TITLE: PRIMARY CARE ADMINISTRATIVE NOTE DATE OF NOTE: JUN 09, 2020@12:21 ENTRY DATE: JUN 09, 2020@12:21:16 AUTHOR: NESS HORTA EXP COSIGNER: URGENCY: STATUS: COMPLETED Entry Specialist of this note: Called this patient to try and schedule a tele one appointment with Dodie Villafana 2 P 30. Left voicemail - l shiraz was sent. RUSSELL MCGOVERN [address] [place], [place] [address] Dear [place], [facility], [place] in [facility] is trying to reach you to schedule an appointment NICOLAS Dent [facility] 6 G *WH*. If you have already been in contact with the clinic and sche duled an appointment, please disregard this letter. Please call one of the numbers provided below: Direct: [phone] x [phone] o r [phone] Toll Free: [phone] o r [phone] ([address]) [place] [address] Again, thank you for letting us serve you. [employer]. [facility] [address] [address] TOLL FREE: 528-[employer] () /lulu/ NESS HORTA Supervisory MSA Signed: 06/09/2020 12:22 Jun 09, 2020 12:20 PM INFECTIOUS DISEASE NOTE: NESS HORTA [facility] LOCAL TITLE: COVID-19 CANCELLED APPOINTMENT [facility] STANDARD TITLE: INFECTIOUS DISEASE NOTE DATE OF NOTE: JUN 09, 2020@12:20 ENTRY DATE: JUN 09, 2020@12:20:27 AUTHOR: NESS HORTA EXP COSIGNER: URGENCY: STATUS: COMPLETED COVID-19 CANCELLED APPOINTMENT FOLLOW-UP Has ADDENDA Review of cancelled appointments during COVID-19 pandemic: CVP - Past Clinic Visits 06/05/2020 13:27 [facility] POD KAILYN 30 M3RH UNSCHEDULED 12/15/2019 10:00 ZZZ [facility] POD PMA MIX M 3RH CANCELLED BY PATIENT Date(s) of appointment(s) being reviewed: 10/24 9:00 Clinic Location/Specialty: [facility] PACT 6 G M2RE The 's chart has been reviewed and the ac tion below is indicated for this cancelled appointment: Follow-up: Scheduling action needed /lulu/ NESS HORTA Supervisory MSA Signed: 06/09/2020 12:20 Receipt Acknowledged By: 06/21/2020 09:07 /lulu/ FRANK CONCEPCION 06/21/2020 ADDENDUM STATUS: COMPLETED patient scheduled /fabrice CONCEPCION Signed: 06/21/2020 08:59
--- OUTSIDE RECORDS SUMMARY | 2020-12-20 10:58 | XMS_ITS | Encounter Summary ---
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 Date/Time Encounter Type Encounter Reason Provider Source Description Jan 11, 2020 07:52 Outpatient PRIMARY TAYLOR GUTIERRES AM Encounter CARE/MEDICINE IHE Encounter Template Text not used by [place] Social History: Smoking Status (Most current) and [...] VA-TOBACCO QUIT 1 TO < 5 YRS [facility] Tobacco Use History This section includes a history of the smoking, or tobacco-related health factors, that were collected on or before the date of the Encounter. The data comes from the [place] facility where the Encounter took place. Date/Time Smoking Status/Tobacco Use Comment [facility] Oct 26, 2019 09:30 AM VA-TOBACCO QUIT 1 TO < 5 YRS [facility] Dec 09, 2018 10:48 AM LIFETIME NON-TOBACCO USER [place] [facility] Aug 04, 2018 03:07 PM VA-TOBACCO FORMER USER [place] HE [facility] Aug 04, 2018 03:07 PM VA-TOBACCO QUIT 1 TO < 5 YRS [facility] Oct 05, 2017 10:33 AM CURRENT SMOKER [facility]A Lang [facility] 2 ppd Oct 05, 2017 10:33 AM V1-PT READY TO QUIT TOBACCO USE [facility] [facility] Oct 20, 2016 09:35 AM QUIT TOBACCO USE 1-7 YEARS AGO [facility] 1.5 ago Nov 05, 2015 01:31 PM QUIT TOBACCO USE 1-7 YEARS AGO [facility] Jul 24, 2014 08:39 AM QUIT TOBACCO USE 1-7 YEARS AGO [facility] Jul 28, 2013 09:49 AM QUIT TOBACCO USE 1-7 YEARS AGO [facility] Oct 26, 2012 12:34 PM QUIT TOBACCO USE IN PAST YEAR [facility] Sep 29, 2011 08:35 AM QUIT TOBACCO USE 1-7 YEARS AGO [facility] February 10, 2011 02:44 PM QUIT TOBACCO USE IN PAST YEAR [facility] Advance Directives: All historical and current Section [...] 29, 2017 ADVANCE DIRECTIVE RUBIN ABDUL [facility] MCDANIEL T [facility] Encounter Notes: All associated encounter notes This section contains the clinical notes associated to the Encounter. Date/Time Encounter Note(s) Provider Source Jan 11, 2020 07:52 AM PRIMARY CARE SECURE MESSAGING: LINDSEY GUTIERRES LOCAL TITLE: PRIMARY CARE SECURE MESSAGING [facility] STANDARD TITLE: PRIMARY CARE SECURE MESSAGING DATE OF NOTE: JAN 11, 2020@07:52:37 ENTRY DATE: JAN 11, 2020@08:52:37 AUTHOR: TAYLOR GUTIERRES EXP COSIGNER: URGENCY: STATUS: COMPLETED PRIMARY CARE SECURE MESSAGING Has ADDENDA ------Original Message Sent: 01/11/2020 05:16 AM From: RUSSELL MCGOVERN To: MAURILIO-SUICH_[email or web address] Subject: refill need a refill on theses omeprazole 20 mg ------Original Message Sent: 01/11/2020 08:52 AM From: TAYLOR GUTIERRES To: RUSSELL MCGOVERN Subject: refill Good morning Sir, I will forward your refill request to your PCP. Should you have any questions, please do not hes itate to contact us. Taylor Brown LPN /trish/ TAYLOR GUTIERRES LPN Signed: 01/11/2020 08:52 Receipt Acknowledged By: 01/11/2020 13:36 /trish/ NICOLAS Sweeney MD 01/11/2020 ADDENDUM STATUS: COMPLETED last seen oct 16. hx gerd/barretts. seen by gi 11/16, recommended continue ppi at 40m g a day. GLU,BUN,CREAT,LYTES GLUCOSE BUN CREAT S ODIUM K CHLOR CO2 10/26/19 08:02 105 H 7 1.01 1 40 3.9 103 27 GLU,BUN,CREAT,LYTES ANION eGFR 10/26/19 08:02 10 75 homer /trish/ NICOLAS COLEMAN Staff Signed: 01/11/2020 13:36
--- OUTSIDE RECORDS SUMMARY | 2020-12-20 10:58 | XMS_ITS | Encounter Summary ---
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 Date/Time Encounter Type Encounter Reason Provider Source Description Jun 05, 2020 OFFICE/OUTPATIE PODIATRY ICD-10-CM M79.673 HUMAIRA NC 01:27 PM NT VISIT EST Pain in ROLMARYANNE E unspecified foot with Provider Comments: Foot pain ([facility] [id number]) IHE Encounter Template Text not used by [facility] Assessments - Encounter Diagnoses This section includes the primary and secondary diagnoses documented forthe Encounter. Date/Time Primary/Secondary Diagnosis Name Provider Source Diagnosis Jun 05, 2020 PRIMARY Pain in SHARON GERARDO 01:29 PM unspecified foot OLINE E [facility] Plan of Treatment: Future Appointments (+ 6 months) and Future Tests (+/- 45 days) The Plan of Treatment section includes future care activities for the patient from all [place] treatment facilities. This section includes future appointments and future orders which are active, pending or scheduled.Future Appointments This section includes appointments that were scheduled to occur 6 months from the date of the Encounter, up to a maximum of 20 appointments. The data [facility] [place] [facility] Appointment Date/Time Appointment Type Appointment Facili ty Name Aug 15, 2020 02:00 PM AMBULATORY - SUR[facility] Aug 15, 2020 02:30 PM AMBULATORY - MEDICINE [facility] Oct 23, 2020 09:01 AM [facility] [facility] Oct 28, 2020 09:15 AM AMBULATORY - REHAB MEDICINE [place] [facility] Nov 29, 2020 09:15 AM AMBULATORY - NONE [facility] Social History: Smoking Status (Most current) and Tobacco Use (All prior to encounter date) This section includes the most current, and the historical, smoking and tobacco-related health factors from the [place] facility where the Encounter took place.Current Smoking Status This section includes the most current smoking, or tobacco-related health factor, from the [place] facility where the Encounter took place. Date/Time Current Smoking Status Comment Facility Oct 26, 2019 09:30 AM VA-TOBACCO QUIT 1 TO < 5 YRS [facility] Tobacco Use History This section includes a history of the smoking, or tobacco-related health factors, that were collected on or before the date of the Encounter. The data comes from the [place] facility where the Encounter took place. Date/Time Smoking Status/Tobacco Use Comment Facil ity Oct 26, 2019 09:30 AM VA-TOBACCO QUIT 1 TO < 5 YRS [facility] Dec 09, 2018 10:48 AM LIFETIME NON-TOBACCO USER [facility] Aug 04, 2018 03:07 PM VA-TOBACCO FORMER USER [place] ELIZALDE [facility] Aug 04, 2018 03:07 PM VA-TOBACCO QUIT 1 TO < 5 YRS [facility] Oct 05, 2017 10:33 AM CURRENT SMOKER [facility] Lang T [facility] 2 ppd Oct 05, 2017 10:33 AM V1-PT READY TO QUIT TOBACCO USE [facility] Oct 20, 2016 09:35 AM QUIT TOBACCO USE 1-7 YEARS AGO [facility] 1.5 ago Nov 05, 2015 01:31 PM QUIT TOBACCO USE 1-7 YEARS AGO [facility] Jul 24, 2014 08:39 AM QUIT TOBACCO USE 1-7 YEARS AGO [facility] Jul 28, 2013 09:49 AM QUIT TOBACCO USE 1-7 YEARS AGO [facility] Oct 26, 2012 12:34 PM QUIT TOBACCO USE IN PAST YEAR [facility] Sep 29, 2011 08:35 AM QUIT TOBACCO USE 1-7 YEARS AGO [facility] February 10, 2011 02:44 PM QUIT TOBACCO USE IN PAST YEAR [facility] Advance Directives: All historical and current Section Date Range: From patient's date of to the date document was created. This section includes ALL of a patient's completed or amended [place] Advance and Rescinded Directives. The entries below indicate that a directive exists for the patient, but an actual copy is not included with this document. The data comes from all [place] facilities. Date Advance Directives Provider Source Nov 29, 2017 ADVANCE DIRECTIVE RUBIN ABDUL [facility] [facility] Encounter Notes: All associated encounter notes This section contains the clinical notes associated to the Encounter. Date/Time Encounter Note(s) Provider Source Jun 05, 2020 01:27 PM ADMINISTRATIVE NOTE: RIGO GERARDO LOCAL TITLE: ADMINISTRATIVE NOTE PODIATRY E [facility] STANDARD TITLE: ADMINISTRATIVE NOTE DATE OF NOTE: JUN 05, 2020@13:27 ENTRY DATE: JUN 05, 2020@13:27:10 AUTHOR: HILDA GERARDO EXP COSIGNER: URGENCY: STATUS: COMPLETED Several attempts to schedule patient have been m rose 05/27/20 and 05/31/20. Also, unable to reach patient by phone. Due to COVID1 9 restrictions on limited F2F visits, pt will have to reac h out again but can't know how soon we will be able to schedule. /trish/ RIGO GERARDO DPM Signed: 06/05/2020 13:29
--- OUTSIDE RECORDS SUMMARY | 2020-12-20 10:58 | XMS_ITS | Encounter Summary ---
:1960 Author Organization [facility] Address [address] [place] [id number] Care Team Providers Name Role Phone LOUISA [...] MEDICARE MEDICARE PART Mar 27, PART B [id number] SAVANNAH MCGOVERN PATIENT (WNR) (M) B 2018 [id number] 1 D[place] MEDICARE MEDICARE PART Apr 27, PART A [id number] PATIENT (WNR) (M) A 2005 PQ95 1 RUSSELL JONES -FO TRICA Mar 27, 354 [id number] [phone] PRIES TSI PATIENT R-LIFE RE 2018 [id number] DNEY -FO TFL Mar 27, [id number] [phone] PRIShaye STSI PATIENT R-LIFE 2018 [id number] DNEY UNITED MEDICARE MCR(W Sep 27, [id number] [phone] [employer],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 Date/Time Encounter Type Encounter Reason Provider Source Description Apr 08, 2020 12:23 Outpatient PRIMARY YING COVARRUBIAS PM Encounter CARE/MEDICINE EE IHE Encounter Template Text not used by [place] Plan of Treatment: Future Appointments (+ 6 [...] 20 appointments. [facility] [place] [facility] Appointment Date/Time Appointment Type Appointment Facili ty Name Aug 15, 2020 02:00 PM AMBULATORY - SURGERY [facility] Aug 15, 2020 02:30 PM AMBULATORY - MEDICINE [facility] Social History: Smoking Status (Most [...] VA-TOBACCO QUIT 1 TO < 5 YRS [facility] Tobacco Use History This section includes a history of the smoking, or tobacco-related health factors, that were collected on or before the date of the Encounter. The data comes from the [place] facility where the Encounter took place. Date/Time Smoking Status/Tobacco Use Comment Facil it Oct 26, 2019 09:30 AM VA-TOBACCO QUIT 1 TO < 5 YRS [facility] Dec 09, 2018 10:48 AM LIFETIME NON-TOBACCO USER [facility] Aug 04, 2018 03:07 PM VA-TOBACCO FORMER USER [facility]AL HE [facility] Aug 04, 2018 03:07 PM [place]-TOBACCO QUIT 1 TO < 5 YRS [facility] Oct 05, 2017 10:33 AM CURRENT SMOKER LEORA Lang [facility] 2 ppd Oct 05, 2017 10:33 AM V1-PT READY TO QUIT TOBACCO USE [facility] Oct 20, 2016 09:35 AM QUIT TOBACCO USE 1-7 YEARS AGO [facility] 1.5 ago Nov 05, 2015 01:31 PM QUIT TOBACCO USE 1-7 YEARS AGO [facility] Jul 24, 2014 08:39 AM QUIT TOBACCO USE 1-7 YEARS AGO LE[facility]A MCDANIELT [facility] Jul 28, 2013 09:49 AM QUIT TOBACCO USE 1-7 YEARS AGO LEORA MCDANIELT [facility] Oct 26, 2012 12:34 PM QUIT TOBACCO USE IN PAST YEAR LEORA LENNON [facility] Sep 29, 2011 08:35 AM QUIT TOBACCO USE 1-7 YEARS AGO [facility]A HE [facility] February 10, 2011 02:44 PM QUIT TOBACCO USE IN PAST YEAR [facility] HE [facility] Advance Directives: All historical and current [...] 2017 ADVANCE DIRECTIVE RUBIN ABDUL [facility]A HE [facility] Encounter Notes: All associated encounter notes This section contains the clinical notes associated to the Encounter. Date/Time Encounter Note(s) Provider Source Apr 08, 2020 12:23 PRIMARY CARE SECURE MESSAGING: JUVENTINO COVARRUBIAS LEORA HE [facility] LOCAL TITLE: PRIMARY CARE SECURE MESSAGING [facility] STANDARD TITLE: PRIMARY CARE SECURE MESSAGING DATE OF NOTE: APR 08, 2020@12:23:13 ENTRY DATE: APR 08, 2020@13:23:13 AUTHOR: CHATO COVARRUBIAS EXP COSIGNER: URGENCY: STATUS: COMPLETED PRIMARY CARE SECURE MESSAGING Has ADDENDA ------Original Message Sent: 04/08/2020 01:14 PM From: RUSSELL MCGOVERN To: [email or web address] Subject: refill need a nother refill of Hydrochlorothiazide /es/ Chato Covarrubias LPN Signed: 04/08/2020 13:23 Receipt Acknowledged By: 04/09/2020 10:19 /trish/ Louisa stoddard MSN,RECEPTION CLERK Nurse Practitioner Faculty 04/09/2020 ADDENDUM STATUS: COMPLETED Appt 09/2020 REfilled meds /trish/ Louisa Austin MSN,RECEPTION CLERK Nurse Practitioner Faculty Signed: 04/09/2020 10:19
--- OUTSIDE RECORDS SUMMARY | 2020-12-20 10:58 | XMS_ITS | Encounter Summary ---
:1960 Author Organization [facility] Address [address] [place] [id number] Care Team Providers Name Role Phone NICOLAS [...] MEDICARE MEDICARE PART Mar 27, PART B [id number] SAVANNAH MCGOVERN PATIENT (WNR) (M) B 2018 PQ95 1 [place] MEDICARE MEDICARE PART Apr 27, PART A [id number] PATIENT (WNR) (M) A 2005 PQ95 1 RUSSELL JONES -FO TRICA Mar 27, [id number] [phone] PRIES TSI PATIENT R-LIFE RE 2018 [id number] DNEY -FO TFL Mar 27, [id number] [phone] PRIShaye MACIASSI PATIENT R-LIFE 2018 [id number] [place] UNITED MEDICARE MCR(W Sep 27, [id number] [phone] [place],S I PATIENT HEALTHCARE ADVANTAGE NR) 2019 82 0 D[place] MCR (WNR) Selected Encounter This section includes the information on record at [place] for the Encounter. Date/Time Encounter Type Encounter Description Reason Provider Source January 29, 2020 11:11 Outpatient Encounter COMMUNITY CARE AM CONSULT IHE Encounter Template Text not used by [place] Social History: Smoking Status (Most current) and Tobacco Use (All prior to encounter date) This section includes the most current, and the historical, smoking and tobacco-related health factors from the [place] facility where the Encounter took place.Current Smoking Status This section includes the most current smoking, or tobacco-related health factor, from the [place] facility where the Encounter took place. Date/Time Current Smoking Status Comment Facility Oct 26, 2019 09:30 AM VA-TOBACCO QUIT 1 TO < 5 YRS [facility] Tobacco Use History This section includes a history of the smoking, or tobacco-related health factors, that were collected on or before the date of the Encounter. The data comes from the [place] facility where the Encounter took place. Date/Time Smoking Status/Tobacco Use Comment [facility] Oct 26, 2019 09:30 AM VA-TOBACCO QUIT 1 TO < 5 YRS [facility] Dec 09, 2018 10:48 AM LIFETIME NON-TOBACCO USER [facility] Aug 04, 2018 03:07 PM VA-TOBACCO FORMER USER [facility] Aug 04, 2018 03:07 PM VA-TOBACCO QUIT 1 TO < 5 YRS [facility] Oct 05, 2017 10:33 AM CURRENT SMOKER LEORA Lang [facility] 2 ppd Oct 05, 2017 10:33 AM V1-PT READY TO QUIT TOBACCO USE [facility] Oct 20, 2016 09:35 AM QUIT TOBACCO USE 1-7 YEARS AGO [facility] 1.5 ago Nov 05, 2015 01:31 PM QUIT TOBACCO USE 1-7 YEARS AGO [facility] Jul 24, 2014 08:39 AM QUIT TOBACCO USE 1-7 YEARS AGO [facility] Jul 28, 2013 09:49 AM QUIT TOBACCO USE 1-7 YEARS AGO [facility] Oct 26, 2012 12:34 PM QUIT TOBACCO USE IN PAST YEAR [facility] Sep 29, 2011 08:35 AM QUIT TOBACCO USE 1-7 YEARS AGO [facility] February 10, 2011 02:44 PM QUIT [...] this document. The data comes from all [place] facilities. Date Advance Directives Provider Source Nov 29, 2017 ADVANCE DIRECTIVE RUBIN ABDUL T [facility] Encounter Notes: All associated encounter notes This section contains the clinical notes associated to the Encounter. Date/Time Encounter Note(s) Provider Source Nov 09, 2019 11:11 AM NONVA NOTE: BHARATHI ROSAS JCT LOCAL TITLE: COMMUNITY CARE EMERGENCY TREATMENT [facility] STANDARD TITLE: NONVA NOTE DATE OF NOTE: NOV 09, 2019@11:11 ENTRY DATE: JANUARY 29, 2020@11:12:08 AUTHOR: BHARATHI ROSAS COSIGNER: URGENCY: STATUS: COMPLETED COMMUNITY CARE FACILITY - INTAKE SECTION: Facility: Hospital Notification Date: Oct@14 :03 Method of Contact: Other:Medical Records Point of Contact Name: . Point of Contact Dept: Point of Contact Phone #: . Point of Contact Fax #: [facility] Care Hospital Name: Hospital: [facility] Address: City: [place] State: [place] Zip Code: Phone : Date Presenting to the Facility: 11/09/2019 Chief Complaint: Headache/Fever Patient Admitted? No ER only [facility] ELIGIBILITY WITH DETERMINATION Date/Time of Review: January@11:14 Service Connected Disabilities: DS - Disabilities Eligibility: [place] LESS THAN 50% VERIFIED Total S/C %: 20 RESIDUALS OF FOOT INJURY 20% S/C [facility] Eligibility: Were services rendered in your local [place]? Care was rendered within local geographical ar ea. Administrative Review Was the VA timely notified within 72 hours o f treatment? No This episode of care does not meet 38 CFR 17 .4020(c). Communicate decision to Community Provider a nd send the Emergency Care Payment Consideration letter. Continue to cl inically follow the [facility] during inpatient stay until transfer red, discharge or [facility] refuses. The is not eligible for 38 CFR 17.40 20(c) payment authority. Emergency Care Payment Consideration letter Comp leted and sent to [facility]. Letter scanned into patients chart as an admin note. /trish/ BHARATHI ROSAS Puller ThroughCustodial Services Manager Signed: 01/29/2020 11:15
[2020-12-20 15:24] LABS: Abs Immature Grans 0.03 10^3/uL (0.0-0.06); Absolute Basophil Count 0.05 10^3/uL (0.0-0.2); Absolute Eosinophil Count 0.13 10^3/uL (0.0-0.7); Absolute Lymphocyte Count 2.58 10^3/uL (1.2-3.4); Absolute Neutrophil Count 4.04 10^3/uL (1.2-6.7); Basophils % 0.7; Eosinophils % 1.7; HCT 45.7 % (40.0-50.0); HGB 15.6 g/dL (13.5-17.5); Immature Grans % 0.4; Lymphocytes % 34.7; MCH 30.5 pg (27.0-33.0); MCHC 34.1 % (32.0-36.0); MCV 89.3 fL (80-95); MPV 11.2 fL (8.0-11.0); Monocytes % 8.1; Neutrophils % 54.4; Nucleated RBC 0 %; Platelet Count 170 10^3/uL (130-400); RBC 5.12 10^6/uL (4.36-5.78); RDW 12.2 % (11.8-14.1); RDW-SD 39.8 fL; WBC 7.43 10^3/uL (4.4-10.8)
[2020-12-20 16:21] LABS: ALT 57 U/L (16-63); AST 31 U/L (15-37); Albumin 4.3 g/dL (3.4-5.0); Alkaline Phosphatase 80 U/L (46-116); Anion Gap 6.5 mmol/L (3-11); BUN 11 mg/dL (7-18); Bilirubin, Total 0.5 mg/dL (0.2-1.0); CO2 30.5 mmol/L (21.0-32.0); Calcium 9.3 mg/dL (8.5-10.1); Calculated LDL 56 mg/dL (<100); Chloride 105 mmol/L (98-107); Cholesterol 111 mg/dL (<200); Glucose 91 mg/dL (74-106); HDL Cholesterol 26 mg/dL (40-60); Sodium 142 mmol/L (136-145); Total Protein 7.3 g/dL (6.4-8.2); Triglyceride 146 mg/dL (<150)
[2020-12-20 16:33] LABS: Troponin I < 0.05 ng/mL (<0.06)
== END 2020-12-20 10:44 | disposition home or self-care (01) ==
LOC: NCHCN 10:43
PROVIDERS: Visit Provider Physician Assistant
DX: R07.9 Chest pain, unspecified (principal); R06.02 Shortness of breath; K76.0 Fatty (change of) liver, not elsewhere classified
CPT/HCPCS: 80053; 80061; 84484; 85025

== ENCOUNTER 2020-12-24 03:21 | Outpatient (CLI) | payer OTHER, SELFPAY ==
[2020-12-24 10:37] LABS: Source Nasal/Nares
[2020-12-24 16:17] LABS: COVID-19 PCR Negative (Negative)
== END 2020-12-24 03:22 | disposition home or self-care (01) ==
LOC: LBO 03:22
PROVIDERS: Visit Provider Family Medicine
DX: Z20.822 Contact with and (suspected) exposure to COVID-19 (principal); Z01.818 Encounter for other preprocedural examination
CPT/HCPCS: 87635

== ENCOUNTER 2020-12-26 03:29 | Outpatient (CLI) | payer OTHER, SELFPAY ==
[2020-12-26] MEDS: Albuterol HFA 18 GM 200 PUFF INH IH (11:11)
[2020-12-26] MEDS: Inhaler, Assist Device 1 EACH MC (11:11)
--- NOTE | 2020-12-30 08:57 | W.PFT ---
Date of service: 12/26/20 Time of Service: 10:01 Pulmonary Function Test Result Interpretation Spirometry: no evidence of obstructive airways disease no bronchodilator response Lung Volumes: No evidence of restriction Diffusion Capacity: Normal Airway Pressure: Normal Impression Normal pulmonary function study Clinical Correlation therefore is recommended.
== END 2020-12-26 03:30 | disposition home or self-care (01) ==
LOC: RT 03:29
PROVIDERS: Visit Provider Physician Assistant
DX: R06.09 Other forms of dyspnea (principal); R06.2 Wheezing; R05 Cough; Z87.891 Personal history of nicotine dependence; R06.02 Shortness of breath
CPT/HCPCS: 94060; 94726; 94729

== ENCOUNTER 2022-02-24 18:41 | Outpatient (REF) | payer OTHER, SELFPAY ==
[2022-02-24 19:29] LABS: Anion Gap 10.1 mmol/L (3-11); BUN 7 mg/dL (7-18); CO2 28.9 mmol/L (21.0-32.0); Chloride 100 mmol/L (98-107); Glucose 81 mg/dL (74-106); Potassium 3.9 mmol/L (3.5-5.1); Sodium 139 mmol/L (136-145)
== END 2022-02-24 18:42 | disposition home or self-care (01) ==
LOC: LBN 18:41
PROVIDERS: Visit Provider Physician Assistant
DX: I10 Essential (primary) hypertension (principal)
CPT/HCPCS: 80048

== ENCOUNTER 2022-09-21 01:19 | Outpatient (CLI) | payer OTHER, SELFPAY ==
[2022-09-21] MEDS: Inhaler, Assist Device 1 EACH MC (09:28)
[2022-09-21] MEDS: Albuterol HFA 18 GM 200 PUFF INH IH (09:28)
--- NOTE | 2022-09-29 11:31 | W.PFT ---
Date of service: 09/21/22 Time of Service: 08:01 Pulmonary Function Test Result Requesting Provider Kenyetta Rowan Indications: Chronic cough Interpretation Spirometry: There is no airflow limitation. There is no bronchodilator response. The FVC is low. MIP and MEP are reduced. Lung Volumes: There is moderate restrictive lung disease. Diffusion Capacity: Normal diffusion Airway Pressure: Normal airways resistance Impression Moderate restrictive lung disease with a normal diffusion. The MIP and MEP are reduced indicative of a possible neuromuscular cause of the restrictive lung disease. Clinical Correlation therefore is recommended.
== END 2022-09-21 01:20 | disposition home or self-care (01) ==
LOC: RT 01:20
DX: R94.2 Abnormal results of pulmonary function studies (principal); R05.3 Chronic cough; R06.2 Wheezing; R06.09 Other forms of dyspnea; Z87.891 Personal history of nicotine dependence
CPT/HCPCS: 94060; 94726; 94729

== ENCOUNTER 2022-09-30 03:27 | Outpatient (CLI) | payer OTHER, SELFPAY ==
--- NOTE | 2022-09-30 | DI.CTLCSR_ITS ---
Exam(s) CT CHEST LUNG CANCER SCREEN EXAM: CT CHEST LUNG CANCER SCREEN CLINICAL HISTORY: H/O TOBACCO USE, Z87.891,SCREENING FOR LUNG CA TECHNIQUE: Imaging Protocol: Axial computed tomography images with coronal and sagittal reformatted images were created and reviewed. Low dose screening protocol. COMPARISON: CR CHEST 2 VIEWS PA,LAT from 12/14/2015 FINDINGS: Tracheobronchial tree: No bronchiectasis or mucus plugging.. Mediastinum and Sonam: No dominant adenopathy or fluid collection. Pulmonary parenchyma: Linear scarring at lung bases. No consolidation or dominant measurable mass. M ild emphysematous changes. Lung Nodules: None. Pleura: No effusion. No pneumothorax. Heart: The heart is not dilated. Bypz-do-dphehaon coronary artery calcifications are seen. Aorta: Thoracic aorta non-dilated. Mild atherosclerotic changes. Upper abdomen: Enlarged liver with severe fatty infiltration. Bones: Unremarkable for age. Soft Tissues: Unremarkable. IMPRESSION: No suspicious pulmonary nodules. Lung RADS Cat 1 - Negative: No nodules and definitely benign nodules Lung-RADS 1.0 CATEGORIES: Category 0 - Prior chest CT exam(s) being located for comparison. Category 1 - Annual screening in 12 months. No nodules or definitely benign nodules. Category 2 - Annual screening in 12 months. Benign appearance. Nodules with low likelihood of becomin g active cancer. Category 3 - 6-month follow-up. Probably benign. Short-term follow-up suggested. Nodules with low lik elihood of becoming active cancer. Category 4A - 3-month follow-up and CT/PET if >8 mm in size. Suspicious finding. Findings which requi re additional testing. Category 4B - Findings which require additional testing and tissue sampling. Category 4X - Category 3 or 4 nodules with additional features or imaging findings that increases the suspicion of malignancy. Modifier S- Potentially clinically significant findings (non lung cancer) RADIATION DOSE DELIVERED: 93.24mGy.cm Total DLP DATA REPOSITORY: All CT scans at this facility are submitted to the National Radiology Data Registry (NRDR) Dose Index Registry (DIR) with the [employer] (ACR). RADIATION OPTIMIZATION: All CT scans at this facility use at least one of these dose optimization te chniques: automated exposure control; mA and/or kV adjustment per patient size (includes targeted exa ms where dose is matched to clinical indication); or iterative reconstruction.
== END 2022-09-30 03:47 ==
PROVIDERS: Visit Provider Physician Assistant
DX: Z12.2 Encounter for screening for malignant neoplasm of respiratory organs (principal); Z87.891 Personal history of nicotine dependence; J43.8 Other emphysema; J98.4 Other disorders of lung
CPT/HCPCS: 71271

== ENCOUNTER 2022-12-15 13:04 | Emergency (ER) | payer OTHER, SELFPAY ==
[2022-12-15 13:50] VITALS: BP 167/89; PULSE 86; RESP 20; TEMP 36.4; O2SAT 95
--- NOTE | 2022-12-15 14:22 | W.ED.GENAD ---
Discharge Plan Disposition Patient Disposition: Home Discharge Details Clinical Impression: Dog bite of right thigh Primary Care Provider: Frieda Stein ED Provider: Kenya Alvares Home Meds and New Rx's Prescriptions: New doxycycline hyclate 100 mg tablet 100 mg PO BID 10 Days Qty: 20 0RF Continued ibuprofen 800 MG tablet 800 mg TID PRN PRN simvastatin 20 MG tablet 10 mg DAILY omeprazole 20 MG capsule,delayed release(DR/EC) 20 mg BID hydrochlorothiazide 25 MG tablet 25 mg DAILY bupropion HCl 150 MG tablet extended release 24 hr 300 mg DAILY lisinopril 10 MG tablet 10 mg PO DAILY Discharge Instructions Instructions: Animal Bite (ED) Additional Instructions: Please keep the wound clean and dry. You may wash with soap and water daily. Take the antibiotic twice daily with yogurt or probiotic as directed. Follow up with primary care provider in 3-5 days for wound recheck if needed. Return to ED sooner if any worsening red streaks, signs of infection like pus or drainage or concerns. Increase oral fluids. Please take Tylenol or Ibuprofen with food every 4-6 hours as needed for pain and swelling. Referrals: Frieda Stein [Primary Care Provider] - 3 days Discharge Data Discharge Date/Time-TO BE ENTERED AT DEPARTURE: 12/15/22 15:20 Medical Decision Making 62-year-old male presents to the ER with chief complaint of dog bite to the back of his right thigh which occurred approximately 3 hours prior to arrival. Patient states that he was out getting his mail when the neighbors dog broke off his leash and bit him in his right back of his thigh. He does have puncture wound noted to posterior thigh, no active bleeding noted. He is unsure of his last tetanus vaccination. He thinks that the dog has his vaccinations. We will give doxycycline and perform wound care with a nonadherent dressing. Animal control dog bite form filled out by senior staff accountant. This text was generated using [employer] system, please disregard any oddities of phrase or misspellings. HPI General Mode of arrival: ambulatory. Date/Time Provider Initiated Documentation: 12/15/22 13:04. Limitations to Documentation: no limitations. Information obtained by: patient, RN notes reviewed and old records reviewed. HPI Narrative: 62-year-old male presents to the ER with chief complaint of dog bite to the back of his right thigh which occurred approximately 3 hours prior to arrival. Patient states that he was out getting his mail when the neighbors dog broke off his leash and bit him in his right back of his thigh. He does have puncture wound noted to posterior thigh, no active bleeding noted. He is unsure of his last tetanus vaccination. He thinks that the dog has his vaccinations. He is allergic to penicillin. Related Data Home Medications Medication Instructions Recorded Confirmed bupropion HCl 150 mg 24 hr tablet, 300 mg DAILY 12/17/13 12/15/22 extended release hydrochlorothiazide 25 mg tablet 25 mg DAILY 12/17/13 12/15/22 ibuprofen 800 mg tablet 800 mg TID PRN PRN 12/17/13 12/15/22 omeprazole 20 mg capsule,delayed 20 mg BID 12/17/13 12/15/22 release simvastatin 20 mg tablet 10 mg DAILY 12/17/13 12/15/22 lisinopril 10 mg tablet 10 mg PO DAILY 12/14/15 12/15/22 doxycycline hyclate 100 mg tablet 100 mg PO BID 10 days #20 tabs 12/15/22 Previous Rx's Medication Instructions Recorded doxycycline hyclate 100 mg tablet 100 mg PO BID 10 days #20 tabs 12/15/22 Allergies Allergy/AdvReac Type Severity Reaction Status Date / Time Penicillins Allergy Unverified 12/15/22 13:54 General Stated Complaint: AnimalBite BARON: 4 Review of Systems All systems reviewed & are unremarkable except as noted in HPI and below Integumentary/Breasts Skin/Breast: Reports wounds PFSH All Active Problems (Updated 12/15/22 @ 14:26 by Kenya Alvares NP) Dog bite of right thigh (Acute) Social History Smoking/Tobacco Use Status: Former Tobacco Use Smoking risk assessment performed?: Yes Drug use: Never Exam Skin Full body images: 1. Multiple puncture wounds consistent with a bite, bleeding controlled. No suturable laceration noted. Course Vital Signs Vital signs: Vital Signs Temperature 36.4 C 12/15/22 13:50 Pulse 86 12/15/22 13:50 Respiratory Rate 20 12/15/22 13:50 Blood Pressure 167/89 H 12/15/22 13:50 Pulse Oximetry 95 12/15/22 13:50 Temperature 36.4 C 12/15/22 13:50 Temperature Source Tympanic 12/15/22 13:50 Pulse 86 12/15/22 13:50 Respiratory Rate 20 12/15/22 13:50 Blood Pressure 167/89 H 12/15/22 13:50 Blood Pressure Position Sitting 12/15/22 13:50 Pulse Oximetry 95 12/15/22 13:50 Oxygen Delivery Method Room Air 12/15/22 13:50 Oxygen Flow Rate 0 12/15/22 13:50 Pain Level 9 12/15/22 13:50
[2022-12-15] MEDS: Doxycycline Hyclate 100 MG CAP PO (14:59)
--- NOTE | 2022-12-15 15:41 | NUR.NOTE ---
Nursing Note: Animal bite report faxed to [facility] Clerk, to [email or web address]. Shine Worker stated it is a secure email. Message left on cell phone of [facility] Officer Nadya Paz regarding the animal bite report form.
== END 2022-12-15 15:20 | disposition home or self-care (01) ==
PROVIDERS: Emergency Provider Registered Nurse Emergency; PCP Physician Assistant
DX: S71.151A Open bite, right thigh, initial encounter (principal); W54.0XXA Bitten by dog, initial encounter
CPT/HCPCS: 90471; 99284; 99283

== ENCOUNTER 2023-07-02 22:40 | Emergency (ER) | payer OTHER, SELFPAY ==
--- NOTE | 2023-07-02 22:51 | ED.GENADUL_ITS ---
Discharge Plan Disposition Patient Disposition: Home Discharge Details Clinical Impression: Acute hypokalemia, Alcohol abuse with intoxication with complication, Scalp abrasion, Fall down stairs, Hypomagnesemia, Nephrolithiasis Primary Care Provider: Frieda Stein ED Provider: Burt Ortiz Home Meds and New Rx's Prescriptions: Continued ibuprofen 800 MG tablet 800 mg TID PRN PRN simvastatin 20 MG tablet 10 mg DAILY omeprazole 20 MG capsule,delayed release(DR/EC) 20 mg BID hydrochlorothiazide 25 MG tablet 25 mg DAILY bupropion HCl 150 MG tablet extended release 24 hr 300 mg DAILY lisinopril 10 MG tablet 10 mg PO DAILY Discharge Instructions Additional Instructions: You were seen in the emergency department after your fall. Your CAT scan showed no sign of any broken bones nor any bleeding in your head. Please touch base with primary care provider as you are potassium was dangerously low and this could have been the result of your hydrochlorothiazide. Please continue taking your medications as previously recommended. Please return to the emergency department if you develop nausea vomiting or have any other concerns. For your pain please take medications as follows: 1. Take acetaminophen (Tylenol), 1,000 mg (two 500 mg tabs) every 6 hours 2. Take ibuprofen (Advil), 200 mg every 6 hours. Discharge Data Discharge Date/Time-TO BE ENTERED AT DEPARTURE: 07/03/23 07:13 HPI General Date/Time Provider Initiated Documentation: 07/02/23 22:47 . HPI Narrative: HPI This is a 62-year-old male arrived to the emergency department via paramedics in the setting of a fall. Patient was reportedly at the top of a flight of stairs after drinking ethanol. He reportedly lost his balance and fell. After his fall, he lost consciousness. Bystanders heard a crash and called paramedics. Patient reports he does not drink alcohol every day. His fingerstick blood glucose was 148. He reportedly has a history of COPD. His oxygen saturation was 80% on room air. He is placed on 4 L nasal cannula. He denies any pain anywhere. Exam General: Well-appearing in no acute distress speaking in complete sentences. Head: Normocephalic, scattered abrasions that are hemostatic, superior aspect of the patient's scalp. Eye: [Pupils equal, round reactive to light.] Extraocular eye movements intact. No conjunctival injection. No scleral icterus. Ear, nose, mouth, throat: Grossly normal inspection. Normal voice, handling secretions normally. No hemotympanum bilaterally. No septal hematoma. Neck: Trachea midline. No midline cervical spinal tenderness. Cardiovascular: Well-perfused distal extremities. Regular rate and rhythm. Respiratory: Nonlabored respiration. Clear breath sounds bilaterally. Gastrointestinal: Nondistended abdomen. Soft nontender. Back: No step-offs or deformities. Musculoskeletal: No edema. Moving all 4 extremities spontaneously. Bilateral upper and lower extremities nontender. Skin: Normal for age and race, grossly normal temperature and turgor. No acute rash. Neurologic: Alert and appropriate, no apparent acute deficits. GCS 15. Psychiatric: Mood and manner are appropriate. Grooming and personal hygiene are appropriate. MDM Primary survey intact. Reassuring shock index. On secondary survey patient has a abrasions on the top of his head. These are hemostatic. His tetanus had been updated earlier this year so no indication for repeat tetanus immunization. Based on his ethanol intoxication and his mechanism of injury will obtain CT head, cervical spine, chest abdomen pelvis. We will also obtain T and L reconstructions though he is having no back pain. He is satting well on room air and so my suspicion is low for pneumothorax as he is equal breath sounds. No preceding chest pain to suggest benefit from syncope evaluation. We will attempt a type and screen in the event that the patient has significant internal bleeding. We will complete ambulatory and p.o. trial assuming patient has no significant internal injuries. Patient will also require a tertiary survey. He had a reassuring negative extended FAST exam. 11:40 PM CBC lacks anemia thrombocytopenia and leukocytosis. Basic metabolic panel showing significant hypokalemia with a serum potassium of 2.4 mmol/L for which patient will receive IV repletion. Given potassium less than 3 will also order twelve-lead ECG. Mild hyperglycemia. No anion gap. Not consistent with DKA. Mild hypomagnesemia for which patient will receive IV repletion. Ethanol intoxication. No KWABENA. Hypokalemia could certainly be secondary to alcohol and hydrochlorothiazide use. 12:[address] is read as negative. Incidental finding of nephrolithiasis. I clear the patient's C-spine. Will order him oral potassium in addition to IV potassium. We will repeat his potassium level at 6 AM. We will complete an ambulatory and p.o. trial. Based on his ethanol level of 154.7 mg/dL he will be sober in approximately 5 hours. 12:41 AM Emergency department upstream biomanufacturing technician Rose has cleaned the patient's superficial scalp abrasions. 6:26 AM Repeat reassuring normal potassium. On reassessment patient had no complaints. He had nontender bilateral upper and lower extremities. He had ambulated in the emergency department. He urinated. He has been drinking water. Will discharge. Patient and I discussed his hydrochlorothiazide as that this may have contributed to his hypokalemia. Reassuring urinalysis. Negative urine drug screen. Chronic conditions affecting the care of the patient: N/A History obtained from an outside historian: Paramedics External record review: No [facility] [place] Medications: IV acetaminophen, IV potassium, ibuprofen, oral potassium I independently interpreted the patient's ECG which was ordered in the setting of his hypokalemia:Normal sinus rhythm at a rate of 91. Normal axis. Interventricular conduction delay. VA and QTc within normal limits. ST segment abnormalities. No T wave inversions. No prior for comparison. Social determinants of health affecting disposition: N/A Management discussed with: N/A Treatment/interventions considered: Hospitalization but deferred Response to therapies provided: Patient felt improved in the emergency department Related Data Home Medications Medication Instructions Recorded Confirmed bupropion HCl 150 mg 24 hr tablet, 300 mg DAILY 12/17/13 12/15/22 extended release hydrochlorothiazide 25 mg tablet 25 mg DAILY 12/17/13 12/15/22 ibuprofen 800 mg tablet 800 mg TID PRN PRN 12/17/13 12/15/22 omeprazole 20 mg capsule,delayed 20 mg BID 12/17/13 12/15/22 release simvastatin 20 mg tablet 10 mg DAILY 12/17/13 12/15/22 lisinopril 10 mg tablet 10 mg PO DAILY 12/14/15 12/15/22 Allergies Allergy/AdvReac Type Severity Reaction Status Date / Time Penicillins Allergy Unverified 12/15/22 13:54 General BARON: 4 PFSH All Active Problems (Updated 07/03/23 @ 00:28 by Burt Ortiz MD) Acute hypokalemia (Acute) Alcohol abuse with intoxication with complication (Acute) Scalp abrasion (Acute) Fall down stairs (Acute) Hypomagnesemia (Acute) Nephrolithiasis (Chronic) Social History Smoking/Tobacco Use Status: Former Tobacco Use Smoking risk assessment performed?: Yes Alcohol Intake: current Alcohol Intake frequency: a few times a month Drug use: Never Substance use type: does not use Do you feel safe at home: Yes Do you feel safe in your relationship?: Yes POCUS Exam (ED) Efast Exam DATE OF EXAM: 07/02/23 TIME OF EXAM: 23:42 PROVIDER THAT PEFORMED THE STUDY: Burt Ortiz IS THIS A REPEAT EXAM DURING THIS ENCOUNTER: no REASON FOR EXAM: Fall VISUALIZED STRUCTURES: Hepatorneal space, Pelvis, Pericardium, Perisplenic space, Pleural space/left and Pleural space/right PERTINENT FINDINGS/IMPRESSION: no apparent free fluid, lung sliding, left side, lung sliding,right side, no pericardial effusion, no pleural effusion on the left side, no pleural effusion on the right side, no pneumothorax on left side and no pneumothorax on right side DIFFERENTIAL DIAGNOSES: Negative extended FAST exam Limited Transthoracic Echo: Exam complete Limited Abdominal Exam: Exam complete Limited Retroperitoneal Exam: Exam complete
[2023-07-02] MEDS: ACETAMINOPHEN 1,000 MG/100 ML BTL 400 MG IVPB (23:13)
[2023-07-02] MEDS: Normal Saline 500 ML IV (23:14)
[2023-07-02 23:15] LABS: Abs Immature Grans 0.03 10^3/uL (0.0-0.06); Absolute Basophil Count 0.05 10^3/uL (0.0-0.2); Absolute Eosinophil Count 0.15 10^3/uL (0.0-0.7); Absolute Lymphocyte Count 2.75 10^3/uL (1.2-3.4); Absolute Monocyte Count 0.56 10^3/uL (0.1-0.8); Absolute Neutrophil Count 3.16 10^3/uL (1.2-6.7); Basophils % 0.7; Eosinophils % 2.2; HCT 41.7 % (40.0-50.0); HGB 14.8 g/dL (13.5-17.5); Immature Grans % 0.4; MCH 31.5 pg (27.0-33.0); MCHC 35.5 % (32.0-36.0); MCV 89 fL (80-95); MPV 10.2 fL (8.0-11.0); Monocytes % 8.4; Neutrophils % 47.3; Platelet Count 142 10^3/uL (130-400); RDW 12.8 % (11.8-14.1); RDW-SD 41.7 fL
--- NOTE | 2023-07-02 23:15 | DI.CT_ITS ---
Exam(s) CT THORACIC LUMBAR SPINE WO CT CHEST/ABD/PEL W EXAM: CT CHEST/ABD/PEL W and CT thoracic and lumbar spine recons CLINICAL HISTORY: Fell down 16 flights of stairs ethanol intoxicatio TECHNIQUE: Imaging Protocol: Axial computed tomography images with coronal and sagittal reformatted images were created and reviewed CONTRAST MATERIAL: Intravenous: Omnipaque 350 contrast volume:100 mL Oral: No COMPARISON: CT CT CHEST LUNG CANCER SCREEN from 09/30/2022 FINDINGS: CHEST: Tracheobronchial tree: Patent where visualized. Pulmonary parenchyma: Atelectatic changes are seen in the lungs. No architectural distortion. Visualized thyroid gland: Unremarkable. Mediastinum and Sonam: No dominant adenopathy or fluid collection. The esophagus is unremarkable. Pleura: No effusion or pneumothorax. Heart: The heart is not dilated. Three vessel coronary artery calcification is present. No pericardi al effusion. Pulmonary arteries: Due to the bolus timing, opacification of the pulmonary arteries is suboptimal fo r evaluation of pulmonary emboli. Aorta: Thoracic aorta non-dilated. Atherosclerosis is present. Lymph nodes: Within normal limits. Soft tissues: Unremarkable. Bones:Within normal limits for the patient's age. Thoracic spine recons: Age-appropriate degenerative changes are seen in the thoracic spine. No acute fractures or subluxations are seen. ABDOMEN: Liver: The liver is enlarged. There is decreased attenuation of the liver suggesting fatty infiltrat ion. No measurable mass. Portal, Superior Mesenteric, and Splenic Veins: Unremarkable. Gallbladder and Biliary Tract: No radiodense calculus or dilation. Pancreas: Normal density, no abnormal calcifications or inflammatory process. Spleen: Normal. Adrenals: No masses seen. Kidneys: Normal size, contour and axis. Bilateral nephrolithiasis. No evidence of hydronephrosis. N o masses seen. Abdominal Aorta: Abdominal portion non-dilated. Atherosclerosis. Bowel: There is diverticulosis seen in the colon, but no evidence of acute diverticulitis. There is no evidence of bowel obstruction or bowel wall thickening. There is a diverticulum associated with t he 3rd portion of the duodenum. There is no evidence of appendicitis. Peritoneal Cavity: No ascites, collection or mesenteric inflammatory response. No free air. Lymph Nodes: Within normal limits. Bones: Within normal limits for the patient's age. Soft Tissues: Small fat containing right inguinal hernia. PELVIS: Bladder: Symmetric distention, no gross wall thickening. Reproductive Organs: Unremarkable as visualized. Lymph Nodes: Within normal limits. Bones: Within normal limits. There is partial ankylosis of the sacroiliac joints. Lumbar spine recons: Age-appropriate degenerative changes are seen in the lumbar spine. No acute fra ctures or subluxations are seen. IMPRESSION: 1. No acute pulmonary process. 2. No acute abdominal pelvic organ injury. 3. No acute fracture or subluxation is seen in the thoracic or lumbar spine. RADIATION DOSE DELIVERED: Total DLP DATA REPOSITORY: All CT scans at this facility are submitted to the National Radiology Data Registry (NRDR) Dose Index Registry (DIR) with the [employer] (A[employer]). RADIATION OPTIMIZATION: All CT scans at this facility use at least one of these dose optimization te chniques: automated exposure control; mA and/or kV adjustment per patient size (includes targeted exa ms where dose is matched to clinical indication); or iterative reconstruction.
--- NOTE | 2023-07-02 23:15 | DI.CT_ITS ---
Exam(s) CT HEAD CERVICAL SPINE WO EXAM: CT HEAD CERVICAL SPINE WO CLINICAL HISTORY: Scalp abrasion history of fall. TECHNIQUE: Imaging Protocol: Axial computed tomography images with coronal and sagittal reformatted images were created and reviewed COMPARISON: No exams were available for comparison FINDINGS: CT Head: Ventricles and Extra axial spaces: Normal in size and morphology for the patient's age. Hemorrhage: None. Cerebral parenchyma: There are areas of decreased attenuation in the white matter suggestive of small vessel ischemic disease. Midline shift: None. Brainstem/Cerebellum: Normal. Calvarium: Normal. Visualized Paranasal sinuses/Mastoids: Clear. Soft Tissues: Unremarkable. CT Cervical Spine: Bones: No acute fracture or subluxation. Moderate degenerative changes are present throughout the cer vical spine. There is mild reversal of the normal cervical lordosis which is likely degenerative in nature. This may also be associated with patient positioning or muscle spasm. Soft Tissues: Unremarkable. IMPRESSION: 1. No acute intracranial process. 2. No acute fracture or subluxation in the cervical spine. RADIATION DOSE DELIVERED: 1,235.33mGy.cm Total DLP DATA REPOSITORY: All CT scans at this facility are submitted to the National Radiology Data Registry (NRDR) Dose Index Registry (DIR) with the [employer] (ACR). RADIATION OPTIMIZATION: All CT scans at this facility use at least one of these dose optimization te chniques: automated exposure control; mA and/or kV adjustment per patient size (includes targeted exa ms where dose is matched to clinical indication); or iterative reconstruction.
[2023-07-02 23:16] VITALS: PULSE 91; RESP 17; O2SAT 96
[2023-07-02 23:20] VITALS: PULSE 92; RESP 13; O2SAT 95
[2023-07-02 23:27] LABS: Anion Gap 10.5 mmol/L (3-11); BUN 5 mg/dL (7-18); CO2 27.5 mmol/L (21.0-32.0); Calcium 9.4 mg/dL (8.5-10.1); Chloride 95 mmol/L (98-107); ETHANOL BLOOD 154.7 mg/dL (<10); Estimated GFR 84.05 (mL/min/1.73m2); Glucose 153 mg/dL (74-106); Lipase 34 U/L (16-77); Magnesium 1.6 mg/dL (1.8-2.4); Sodium 133 mmol/L (136-145)
[2023-07-02 23:30] VITALS: PULSE 90; RESP 16; O2SAT 94
--- NOTE | 2023-07-02 23:30 | RT.EKG_ITS ---
APPROVED REPORT Exam: Resting ECG Reason for Exam: Hypokalemia Patient Location: E HR:91 bpm ECG Measurements Heart Rate 91 AXIS NE 190 P 61 QRSd 113 QRS 22 QT 379 T 45 QTc 467 Conclusion Sinus rhythm...normal P axis, V-rate 60- 99 Normal sinus rhythm at a rate of 91. Normal axis. Interventricular conduction delay. NE and QTc wi thin normal limits. ST segment abnormalities. No T wave inversions. No prior for comparison.
[2023-07-02 23:31] VITALS: BP 138/78; PULSE 89; RESP 17; O2SAT 93
[2023-07-02 23:34] LABS: Potassium 2.4 mmol/L (3.5-5.1)
[2023-07-03] VITALS (58 sets, daily range): BP systolic 113–147; BP diastolic 76–97; PULSE 89–101; RESP 9–24; O2SAT 86–97
--- NOTE | 2023-07-03 00:06 | DI.VRAD_ITS ---
PROCEDURE INFORMATION: Exam: CT Head Without Contrast Exam date and time: 07/02/2023 11:49 PM Age: 62 years old Clinical indication: Injury or trauma; Fall; Blunt trauma (contusions or hematomas); Consciousness not specified; Injury date: Today TECHNIQUE: Imaging protocol: Computed tomography of the head without contrast. Radiation optimization: All CT scans at this facility use at least one of these dose optimization techniques: automated exposure control; mA and/or kV adjustment per patient size (includes targeted exams where dose is matched to clinical indication); or iterative reconstruction. COMPARISON: CT HEAD CERVICAL SPINE WO 07/02/2023 11:06 PM FINDINGS: Brain: Atrophy and chronic appearing white matter changes. No edema or hemorrhage. Cerebral ventricles: No ventriculomegaly. Paranasal sinuses: No acute sinusitis. Mastoid air cells: No mastoid effusion. Bones/joints: No acute fracture. Soft tissues: No suspicious lesions. IMPRESSION: No acute intracranial findings. PROCEDURE INFORMATION: Exam: CT Cervical Spine Without Contrast Exam date and time: 07/02/2023 11:49 PM Age: 62 years old Clinical indication: Injury or trauma; Fall; Blunt trauma (contusions or hematomas); Consciousness not specified; Injury date: Today TECHNIQUE: Imaging protocol: Computed tomography of the cervical spine without contrast. Radiation optimization: All CT scans at this facility use at least one of these dose optimization techniques: automated exposure control; mA and/or kV adjustment per patient size (includes targeted exams where dose is matched to clinical indication); or iterative reconstruction. COMPARISON: CT HEAD CERVICAL SPINE WO 07/02/2023 11:06 PM FINDINGS: Bones/joints: Reversal of the normal cervical lordosis. No acute fracture or subluxation. Multilevel cervical spine degenerative changes with multilevel neural foraminal and central canal stenosis. Lungs: Not significantly imaged. Soft tissues: No suspicious lesions. IMPRESSION: No cervical spine fracture. Dictated and Authenticated by: Suzanne Reyes MD. Ordering:ZION Dallas MD
[2023-07-03] MEDS: Normal Saline - Diluent 50 ML VIAL IJ (00:09)
[2023-07-03] MEDS: Omnipaque 350 MG/ML 100 ML BTL IJ (00:09)
[2023-07-03] MEDS: Normal Saline Flush 10 ML SYR IVP (00:09)
[2023-07-03] MEDS: POTASSIUM CHLORIDE 20 MEQ/100 ML BAG 50 MEQ IVPB (00:20)
[2023-07-03] MEDS: MAGNESIUM SULFATE 2 GM/50 ML BAG IVPB (00:20)
--- NOTE | 2023-07-03 00:20 | DI.VRAD_ITS ---
PROCEDURE INFORMATION: Exam: CT Thoracic Spine Without Contrast Exam date and time: 07/02/2023 11:53 PM Age: 62 years old Clinical indication: Injury or trauma; Fall; Blunt trauma (contusions or hematomas); Injury date: Today TECHNIQUE: Imaging protocol: Computed tomography of the thoracic spine without contrast. Radiation optimization: All CT scans at this facility use at least one of these dose optimization techniques: automated exposure control; mA and/or kV adjustment per patient size (includes targeted exams where dose is matched to clinical indication); or iterative reconstruction. COMPARISON: CT THORACIC LUMBAR SPINE WO 07/02/2023 11:15 PM FINDINGS: Bones/joints: No acute fracture or subluxation. Mild demineralization and chronic degenerative changes. Soft tissues: No paraspinal lesions. IMPRESSION: No acute bony pathology. PROCEDURE INFORMATION: Exam: CT Lumbar Spine Without Contrast Exam date and time: 07/02/2023 11:53 PM Age: 62 years old Clinical indication: Injury or trauma; Fall; Blunt trauma (contusions or hematomas); Injury date: Today TECHNIQUE: Imaging protocol: Computed tomography of the lumbar spine without contrast. Radiation optimization: All CT scans at this facility use at least one of these dose optimization techniques: automated exposure control; mA and/or kV adjustment per patient size (includes targeted exams where dose is matched to clinical indication); or iterative reconstruction. COMPARISON: CT THORACIC LUMBAR SPINE WO 07/02/2023 11:15 PM FINDINGS: Bones/joints: No acute fracture or subluxation. Degenerative changes with disc disease most pronounced at L4-L5. Multilevel neural foraminal stenosis the without definite central canal stenosis on CT.Transitional lumbosacral anatomy, normal variant. Chronic partial ankylosis of SI joints. Soft tissues: No paraspinal lesions. IMPRESSION: No acute bony pathology. Dictated and Authenticated by: Suzanne Reyes MD. Ordering:ZION Dallas MD
--- NOTE | 2023-07-03 00:24 | DI.VRAD_ITS ---
PROCEDURE INFORMATION: Exam: CT Chest With Contrast; Diagnostic Exam date and time: 07/02/2023 11:53 PM Age: 62 years old Clinical indication: Injury or trauma; Generalized; Blunt trauma (contusions or hematomas); Injury date: Today; Injury details: Fall down 16 flights of stairs TECHNIQUE: Imaging protocol: Diagnostic computed tomography of the chest with contrast. Radiation optimization: All CT scans at this facility use at least one of these dose optimization techniques: automated exposure control; mA and/or kV adjustment per patient size (includes targeted exams where dose is matched to clinical indication); or iterative reconstruction. Contrast material: OMNIPAQUE 350; Contrast volume: 100 ml; Contrast route: INTRAVENOUS (IV); COMPARISON: CT CHEST/ABD/PEL W 07/02/2023 11:15 PM FINDINGS: Lungs: No airspace consolidation. Scattered microatelectasis. Suspected trace right apical paraseptal emphysema. Pleural spaces: No pneumothorax. No pleural effusion. Heart: No cardiomegaly. No pericardial effusion. Lymph nodes: No enlarged lymph nodes. Vasculature: No aortic aneurysm. Bones/joints: Please see dedicated imaging of the thoracic spine. Soft tissues: No suspicious lesions. IMPRESSION: No acute findings. Incidental findings as above. PROCEDURE INFORMATION: Exam: CT Abdomen And Pelvis With Contrast Exam date and time: 07/02/2023 11:53 PM Age: 62 years old Clinical indication: Injury or trauma; Generalized; Blunt trauma (contusions or hematomas); Injury date: Today; Injury details: Fall down 16 flights of stairs TECHNIQUE: Imaging protocol: Computed tomography of the abdomen and pelvis with contrast. Radiation optimization: All CT scans at this facility use at least one of these dose optimization techniques: automated exposure control; mA and/or kV adjustment per patient size (includes targeted exams where dose is matched to clinical indication); or iterative reconstruction. Contrast material: OMNIPAQUE 350; Contrast volume: 100 ml; Contrast route: INTRAVENOUS (IV); COMPARISON: CT CHEST/ABD/PEL W 07/02/2023 11:15 PM FINDINGS: Liver: Enlarged fatty liver. Gallbladder and bile ducts: No calcified stones. No ductal dilation. Pancreas: No ductal dilation. No masses. Spleen: Splenomegaly. No focal lesions. Adrenal glands: No mass. Kidneys and ureters: Nonobstructive bilateral nephrolithiasis. No renal masses or hydronephrosis bilaterally. Stomach and bowel: Mild thickening of gastric body, pattern suggest hypertrophic gastritis. Follow-up as per institutional protocol. Benign appearing duodenal diverticulum. Appendix: No evidence of appendicitis. Intraperitoneal space: No free air. No significant fluid collection. Vasculature: No abdominal aortic aneurysm. Lymph nodes: Prominent portacaval lymph node may relate to the fatty liver. Urinary bladder: Three distended urinary bladder without wall thickening. Reproductive: Moderate prostatic enlargement. Bones/joints: No acute fracture or subluxation. Soft tissues: Small fat-containing right inguinal hernia. IMPRESSION: 1. No acute findings. 2. Incidental findings as described. Dictated and Authenticated by: Suzanne Reyes MD. Ordering:ZION Dallas MD
[2023-07-03] MEDS: Potassium Chloride 20 MEQ TABCR 40 MEQ PO (00:36)
[2023-07-03] MEDS: Normal Saline 500 ML IV (01:30)
[2023-07-03 03:17] LABS: Bilirubin Negative (Negative); Blood Negative (Negative); Clarity Clear (Clear); Glucose Negative (Negative); Ketones Negative (Negative); Leukocyte Esterase Negative (Negative); Nitrite Negative (Negative); Specific Gravity 1.015 (1.005-1.025); Urobilinogen 0.2 mg/dL (Up to 0.2)
[2023-07-03 03:28] LABS: *AMPHETAMINES SCREEN URINE Negative (Negative); *BARBITURATES SCREEN URINE Negative (Negative); *BENZODIAZEPINES SCREEN URINE Negative (Negative); Cannabinoids THC Negative (Negative); Cocaine Screen,Urine Negative (Negative); METHADONE URINE SCREEN Negative (Negative); OPIATES URINE SCREEN Negative (Negative)
[2023-07-03 03:30] LABS: Tricyclic Antidepressants Negative (Negative)
[2023-07-03 06:20] LABS: Potassium 3.5 mmol/L (3.5-5.1)
[2023-07-03] MEDS: Acetaminophen 500 MG TAB 1000 MG PO (06:40)
[2023-07-03] MEDS: Ibuprofen 600 MG TAB PO (06:40)
== END 2023-07-03 07:13 | disposition home or self-care (01) ==
PROVIDERS: Emergency Provider Emergency Medicine; PCP Physician Assistant
DX: E87.6 Hypokalemia (principal); F10.129 Alcohol abuse with intoxication, unspecified; S00.01XA Abrasion of scalp, initial encounter; E83.42 Hypomagnesemia; N20.0 Calculus of kidney; W10.8XXA Fall (on) (from) other stairs and steps, initial encounter
CPT/HCPCS: 74177; 80048; 80307; 83690; 86900; 86901; 93005; 96360; 96365; 96376; 99285; 70450; 71260; 72125; 72128; 72131; 80320; 81003; 83735; 84132; 85025; 93010; 99284; J0131; J3480; J3490

== ENCOUNTER 2023-07-22 19:06 | Outpatient (REF) | payer OTHER, SELFPAY ==
[2023-07-22 20:33] LABS: Potassium 3.7 mmol/L (3.5-5.1)
== END 2023-07-22 19:07 | disposition home or self-care (01) ==
LOC: NCHCN 19:06
PROVIDERS: PCP Physician Assistant; Visit Provider Physician Assistant
DX: E87.6 Hypokalemia (principal)
CPT/HCPCS: 84132

== ENCOUNTER 2023-08-24 17:54 | Outpatient (REF) | payer OTHER, SELFPAY ==
[2023-08-24 19:10] LABS: Potassium 3.5 mmol/L (3.5-5.1)
== END 2023-08-24 17:55 | disposition home or self-care (01) ==
LOC: NCHCN 17:54
PROVIDERS: PCP Physician Assistant; Visit Provider Physician Assistant
DX: E87.6 Hypokalemia (principal)
CPT/HCPCS: 84132

== ENCOUNTER 2023-11-21 07:33 | Emergency (ER) | payer OTHER, SELFPAY ==
[2023-11-21 07:39] VITALS: BP 160/100; PULSE 83; RESP 17; TEMP 37; O2SAT 95
--- NOTE | 2023-11-21 07:45 | DI.RAD_ITS ---
Exam(s) XR LUMBAR SPINE AP, LAT EXAM: XR LUMBAR SPINE AP, LAT CLINICAL HISTORY: low back pain. TECHNIQUE: 2D digital imaging was performed. COMPARISON: No exams were available for comparison FINDINGS: Four views. No evidence of fracture, listhesis, nor pars defects. Mild disc space narrowing at L3-4 level and an terior osteophytes at this level noted. Other disc spaces unremarkable. No osseous lesions. Bone d ensity normal. No scoliosis. Calcifications noted in the abdominal aorta and iliac arteries. IMPRESSION: No fracture. Degenerative disc disease L3-4 level. Calcified abdominal aorta, indicating atherosclerotic involvement.. DATA REPOSITORY: RADIATION DOSE DELIVERED:
[2023-11-21] MEDS: Methocarbamol 500 MG TAB 1000 MG PO (08:05)
[2023-11-21] MEDS: Ibuprofen 600 MG TAB PO (08:05)
[2023-11-21] MEDS: Acetaminophen 500 MG TAB 1000 MG PO (08:05)
--- NOTE | 2023-11-21 08:08 | ED.GENADUL_ITS ---
Discharge Plan Disposition Patient Disposition: Home Condition: Stable Discharge Details Clinical Impression: Low back pain Primary Care Provider: Frieda Stein ED Provider: Maribeth Kendall Home Meds and New Rx's Prescriptions: New methocarbamol 1,000 mg tablet 1,000 mg PO TID PRN (Reason: muscle spasm) Qty: 30 0RF No Action ibuprofen 800 MG tablet 800 mg PO TID PRN PRN simvastatin 20 MG tablet 10 mg PO DAILY omeprazole 20 MG capsule,delayed release(DR/EC) 20 mg PO BID hydrochlorothiazide 25 MG tablet 50 mg PO DAILY lisinopril 10 MG tablet 10 mg PO DAILY gabapentin 300 mg capsule 300 mg PO TID Discharge Instructions Instructions: Low Back Strain (ED) Additional Instructions: start robaxin as directed, continue tylenol and motrin heat pack and gentle stretching can be helpful xray is normal today muscle pains like this can take some time to feel all the way better HPI General Date/Time Provider Initiated Documentation: 11/21/23 07:51 . Limitations to Documentation: no limitations . Information obtained by: patient . HPI Narrative: 63-year-old gentleman presenting with acute low back pain. Patient reports onset yesterday. States that he was trying to assist his off the floor after she fell. He states that she weighs quite a bit and he had immediate onset of back pain. Pain localized to the lower back. Does not radiate down his legs. No weakness, numbness or tingling. Denies any change in bowel or bladder. Has been taking ibuprofen, oxycodone and lidocaine patches without s ignificant relief. Is able to walk and drove himself to the emergency department, but reports significant pain worsening with any movement. Related Data Home Medications Medication Instructions Recorded Confirmed hydrochlorothiazide 25 mg tablet 50 mg PO DAILY 12/17/13 11/21/23 ibuprofen 800 mg tablet 800 mg PO TID PRN PRN 12/17/13 11/21/23 omeprazole 20 mg capsule,delayed 20 mg PO BID 12/17/13 11/21/23 release simvastatin 20 mg tablet 10 mg PO DAILY 12/17/13 11/21/23 lisinopril 10 mg tablet 10 mg PO DAILY 12/14/15 11/21/23 gabapentin 300 mg capsule 300 mg PO TID 11/21/23 11/21/23 methocarbamol 1,000 mg tablet 1,000 mg PO TID PRN muscle spasm 11/21/23 #30 tabs Previous Rx's Medication Instructions Recorded methocarbamol 1,000 mg tablet 1,000 mg PO TID PRN muscle spasm 11/21/23 #30 tabs Allergies Allergy/AdvReac Type Severity Reaction Status Date / Time Penicillins Allergy Unverified 12/15/22 13:54 General Stated Complaint: Nk/Back Pain BARON: 4 Exam Narrative Exam Narrative: Review of Systems: All systems reviewed & are unremarkable except as noted in HPI and below Well-developed, no acute distress NCAT PERRL, normal conjunctiva RRR no murmur Unlabored respiratory effort, clear breath sounds bilaterally Nondistended abdomen, nontender Extremities w/o deformity, no cyanosis, no edema Midline back without step off or deformity, there is some tenderness midline and paraspinal in the lower lumbar area No rashes or lesions. no focal neurologic deficits bilateral lower extremities with 5 out of 5 strength, normal sensation Appropriate mood and affect Course Vital Signs Vital signs: Vital Signs Temperature 37.0 C 11/21/23 07:39 Pulse 83 11/21/23 07:39 Respiratory Rate 17 11/21/23 07:39 Blood Pressure 160/100 H 11/21/23 07:39 Pulse Oximetry 95 11/21/23 07:39 Temperature 37.0 C 11/21/23 07:39 Temperature Source Oral 11/21/23 07:39 Pulse 83 11/21/23 07:39 Respiratory Rate 17 11/21/23 07:39 Respiratory Effort Normal, Non-Labored 11/21/23 07:50 Blood Pressure 160/100 H 11/21/23 07:39 Blood Pressure Position Sitting 11/21/23 07:39 Pulse Oximetry 95 11/21/23 07:39 Oxygen Delivery Method Room Air 11/21/23 07:39 Oxygen Flow Rate 0 11/21/23 07:39 Medical Decision Making Emergent evaluation of acute atraumatic lower back pain. Initial differential includes muscle spasm, herniated disc, doubt cauda equina. Patient has no known medical problems, but given his age, I will get an x-ray to evaluate for pathologic fracture. I will give medication for symptom relief. Imaging is unremarkable for acute bony process. Patient will be discharged with a prescription for Robaxin and instructed to continue Motrin and Tylenol. Other supportive care guidance was discussed with the patient. Recommend following up with PCP for any additional needs. Medical Records Medical records reviewed: Yes I reviewed the patient's medical records. Quality:SDOH Health Related Social Needs: No Data to Display PFSH All Active Problems (Updated 11/21/23 @ 08:49 by Maribeth Kendall MD) Low back pain (Acute) Hypomagnesemia (Acute) Fall down stairs (Acute) Scalp abrasion (Acute) Alcohol abuse with intoxication with complication (Acute) Acute hypokalemia (Acute) Social History Smoking/Tobacco Use Status: Former Tobacco Use Smoking risk assessment performed?: Yes Alcohol Intake: current Alcohol Intake frequency: a few times a month Drug use: Never Substance use type: does not use Do you feel safe at home: Yes Do you feel safe in your relationship?: Yes
--- NOTE | 2023-11-21 08:47 | DI.VRAD_ITS ---
PROCEDURE INFORMATION: Exam: XR Lumbosacral Spine Exam date and time: 11/21/2023 8:18 AM Age: 63 years old Clinical indication: Other: Low back pain TECHNIQUE: Imaging protocol: Radiologic exam of the lumbosacral spine. Views: 2 or 3 views. COMPARISON: CT THORACIC LUMBAR SPINE WO 07/02/2023 11:53 PM FINDINGS: Bones/joints: There is no evidence of acute fracture.There is no evidence of malalignment or dislocation. No intervertebral disc space narrowing. Anterior osteophyte formation L1 through L5 Soft tissues: Unremarkable. IMPRESSION: There is no evidence of acute fracture.There is no evidence of malalignment or dislocation. Dictated and Authenticated by: Regina Lofton MD. Ordering:JENIFER Jones MD
[2023-11-21 08:56] VITALS: BP 144/80; PULSE 78; RESP 17; TEMP 36.8; O2SAT 99
== END 2023-11-21 08:57 | disposition home or self-care (01) ==
PROVIDERS: Emergency Provider Emergency Medicine; PCP Physician Assistant
DX: M54.50 Low back pain, unspecified (principal); Z87.891 Personal history of nicotine dependence
CPT/HCPCS: 99283; 72100

== ENCOUNTER 2023-11-30 15:05 | Outpatient (REF) | payer MEDICARE, OTHER, SELFPAY ==
[2023-11-30 19:48] LABS: Hemoglobin A1C 6.4 % (<5.7)
== END 2023-11-30 15:06 | disposition home or self-care (01) ==
LOC: NCHCN 15:05
PROVIDERS: PCP Physician Assistant; Referring Provider Physician Assistant; Visit Provider Physician Assistant
DX: R73.03 Prediabetes (principal)
CPT/HCPCS: 83036

== ENCOUNTER 2023-12-31 21:11 | Observation (INO) | payer MEDICARE, OTHER, SELFPAY ==
[2023-12-31] VITALS (68 sets, daily range): BP systolic 121–149; BP diastolic 72–91; PULSE 94–110; RESP 15–31; TEMP 36.6; O2SAT 88–97
--- NOTE | 2023-12-31 21:00 | RT.EKG_ITS ---
APPROVED REPORT Exam: Resting ECG Reason for Exam: [facility] Patient Location: E HR:102 bpm ECG Measurements Heart Rate 102 AXIS TN 172 P 76 QRSd 114 QRS 17 QT 353 T 54 QTc 460 Conclusion Sinus tachycardia...rate> 99 Probable left atrial enlargement...P >50mS, <-0.10mV V1 Incomplete right bundle branch block...QRSd >112, terminal axis(90,270) Sinus tachycardia at a rate of 101 with incomplete right bundle branch block. TN within normal limit s. QTc within normal limits. No ST segment abnormalities. T wave flattening in aVL. Appears simil ar to prior dated last year. No acute injury pattern.
--- NOTE | 2023-12-31 21:15 | W.ED.GENAD ---
Discharge Plan Disposition Patient Disposition: Admit to [facility] Discharge Details Clinical Impression: Influenza A, Syncope and collapse, Acute hypokalemia, Acute hypoxemic respiratory failure Primary Care Provider: Frieda Stein ED Provider: Burt Ortiz Home Meds and New Rx's Prescriptions: No Action ibuprofen 800 MG tablet 800 mg PO TID PRN PRN simvastatin 20 MG tablet 10 mg PO DAILY omeprazole 20 MG capsule,delayed release(DR/EC) 20 mg PO BID hydrochlorothiazide 25 MG tablet 50 mg PO DAILY lisinopril 10 MG tablet 10 mg PO DAILY gabapentin 300 mg capsule 300 mg PO TID methocarbamol 1,000 mg tablet 1,000 mg PO TID PRN (Reason: muscle spasm) Qty: 30 0RF sertraline 50 mg tablet 25 mg PO ONCE HPI General Date/Time Provider Initiated Documentation: 12/31/23 21:13. HPI Narrative: MDM This is a chronically ill-appearing tachycardic and mildly hypoxic 63-year-old male with multiple syncopal episodes concerning for intracranial hemorrhage given head strike for which patient will require CT scanning. Given report of prehospital fever will obtain COVID swab. Given concern for sepsis will obtain blood cultures lactate and treat empirically with IV antibiotics using vancomycin and ceftriaxone. No pain out of proportion to suggest necrotizing soft tissue infection. No history of IV drug use to suggest endocarditis. Will obtain a D-dimer as patient is otherwise low risk for PE. No active epistaxis at the moment so no indication for balloon tamponade. No black nor bloody stools to suggest GI bleed. Also patient denies melena. Patient is not anticoagulated and denies hematemesis. 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 He has equal breath sounds so my suspicion is low for pneumothorax. No dysuria nor frequency so my suspicion is low for UTI. Following labs and chest x-ray will plan on hospitalize given multiple syncopal episodes with head strike. Patient is not altered to suggest acute CVA. He is neurologically intact and I do not feel he is a tPA candidate. He has had no tonic-clonic activity to suggest seizure nor any loss of bowel or bladder control so I do not feel that he requires an EEG. No nuchal rigidity to suggest meningitis I do not feel he requires a lumbar puncture. Patient does have a history of alcohol abuse so we will obtain an ammonia given prehospital acute encephalopathy. Will also assess CBC to assess for thrombocytopenia. Nontender abdomen so I am not concerned for peritonitis I do not feel that the patient requires a paracentesis. Patient does not appear volume overloaded to suggest acute heart failure. 10:36 PM I spoke with Dr. Duval who agreed graciously to accept the patient for hospitalization in the setting of his multiple syncopal episodes found to be flu A+. Patient was found to be hypokalemic for which he received oral and IV repletion. Will check a magnesium level. Age-adjusted negative D-dimer. Negative troponin. No anemia. Mild thrombocytopenia worse compared to prior. Venous blood gas with no hypercarbia nor acidemia. No KWABENA. Mild hyperglycemia but no anion gap and normal bicarbonate??not consistent with DKA.Mildly elevated ammonia but not altered to suggest benefit from lactulose as I am not suspicious for hyperammonemia. Negative ethanol level. Patient is requiring 2 L nasal cannula oxygen and given his acute respiratory failure with hypoxia while hospitalized. Given symptoms more than 48 hours with nausea and vomiting will defer oseltamavir at this point. In the setting of syncope I considered: High risk features: 1. Age of the patient (elderly a greatest risk) 2. Syncope during exertion 3. Family history of sudden [place] syncope rule: 1. History of CHF 2. Hematocrit < 30 3. EKG abnormalities 4. Present shortness of breath 5. Systolic blood pressure less than 90 Cardiac arrhythmia/EKG or abnormalities considered: 1. ACS: No ST changes 2. Tachy-liz: No blocks 3. WPW: No delta wave 4. Brugada: No RSR'; R-bundle appearance 5. HCM: No LVH; needle Qs/ T-wave inversions 6. Short/ Long QT: 300 < QTc < 500; no family hx 7. 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 SD within normal limits. QTc within normal limits. No ST segment abnormalities. T wave flattening in aVL. Appears similar to prior dated last year. No acute injury pattern. ]Medications: Antibiotics fluids Social determinants of health affecting disposition: N/A Management discussed with: Hospitalist Treatment/interventions considered: N/A Response to therapies provided: Improved heart rate status post fluids HPI This is a 63-year-old male arrived to the emergency department via paramedics in the setting of multiple syncopal episode today. Patient was reportedly at home today was coughing and had a syncopal episode at rest after shoveling. He reportedly fell and hit his head. He has not been nauseous nor vomiting. He did reportedly have a fever and he has sick contacts. He denies abdominal pain or chest pain. He was evaluated at [facility] discharge. He subsequently was in his son-in-law's truck. He began coughing again and he had a recurrent syncopal episode. He did not fall. He did not hit his head. He denies routine tobacco, ethanol, and illicits. He reports he is thirsty. He has been able to tolerate p.o. today. Exam General: chronically ill-appearing in no acute distress speaking in complete sentences. Requiring 2 L nasal cannula oxygen. Head: Normocephalic, atraumatic. Eye: Extraocular eye movements intact. No conjunctival injection. No scleral icterus. Ear, nose, mouth, throat: Grossly normal inspection. Normal voice, handling secretions normally. No hemotympanum bilaterally. No septal hematoma. Patient does have stigmata of recent epistaxis but no active epistaxis. Neck: Trachea midline. Cardiovascular: Well-perfused distal extremities. Rapid regular rate Respiratory: Nonlabored respiration. Clear lungs bilaterally. Gastrointestinal: Nondistended abdomen. Soft nontender. Musculoskeletal: No significant lower extremity pitting edema. Moving all 4 extremities spontaneously. Skin: Normal for age and race, grossly normal temperature and turgor. No acute rash. Neurologic: Alert and appropriate, no apparent acute deficits. GCS 15. Cranial nerves II to XII intact grossly. 5 out of 5 bilateral upper and lower extremity strength. Psychiatric: Mood and manner are appropriate. Grooming and personal hygiene are appropriate. Related Data Home Medications Medication Instructions Recorded Confirmed hydrochlorothiazide 25 mg tablet 50 mg PO DAILY 12/17/13 12/31/23 ibuprofen 800 mg tablet 800 mg PO TID PRN PRN 12/17/13 12/31/23 omeprazole 20 mg capsule,delayed 20 mg PO BID 12/17/13 12/31/23 release simvastatin 20 mg tablet 10 mg PO DAILY 12/17/13 12/31/23 lisinopril 10 mg tablet 10 mg PO DAILY 12/14/15 12/31/23 gabapentin 300 mg capsule 300 mg PO TID 11/21/23 12/31/23 methocarbamol 1,000 mg tablet 1,000 mg PO TID PRN muscle spasm 11/21/23 12/31/23 #30 tabs sertraline 50 mg tablet 25 mg PO ONCE 12/31/23 12/31/23 Previous Rx's Medication Instructions Recorded methocarbamol 1,000 mg tablet 1,000 mg PO TID PRN muscle spasm 11/21/23 #30 tabs Allergies Allergy/AdvReac Type Severity Reaction Status Date / Time Penicillins Allergy Unverified 12/15/22 13:54 General Stated Complaint: Dizzy/Sync BARON: 3 Course Vital Signs Vital signs: Vital Signs Temperature 36.6 C 12/31/23 21:10 Pulse 104 H 12/31/23 21:10 Respiratory Rate 12/31/23 21:10 Pulse Oximetry 88 L 12/31/23 21:10 Temperature 36.6 C 12/31/23 21:10 Pulse 104 H 12/31/23 21:10 Respiratory Rate 12/31/23 21:10 Blood Pressure 132/84 12/31/23 21:13 Pulse Oximetry 88 L 12/31/23 21:10 Medical Decision Making Quality:SDOH Health Related Social Needs: No Data to Display PFSH All Active Problems (Updated 12/31/23 @ 22:57 by Bob Duval) Alcohol use disorder (Chronic) Thrombocytopenia (Acute) Borderline hyperglycemia (Chronic) Acute hypoxemic respiratory failure (Acute) HTN (hypertension) (Chronic) Syncope and collapse (Acute) Influenza A (Acute) Hypomagnesemia (Acute) Fall down stairs (Acute) Scalp abrasion (Acute) Alcohol abuse with intoxication with complication (Acute) Acute hypokalemia (Acute) Social History Smoking/Tobacco Use Status: Former Tobacco Use Smoking risk assessment performed?: Yes Alcohol Intake: current Alcohol Intake frequency: a few times a month Drug use: Never Substance use type: does not use Do you feel safe at home: Yes Do you feel safe in your relationship?: Yes
--- NOTE | 2023-12-31 21:16 | DI.RAD_ITS ---
Exam(s) XR CHEST 1V IN DI DEPT EXAM: XR CHEST 1V IN DI DEPT CLINICAL HISTORY: Shortness of breath. TECHNIQUE: 2D digital imaging was performed. COMPARISON: CR CHEST 2 VIEWS PA,LAT from 12/14/2015 FINDINGS: Single AP portable view. Heart size is upper normal. The mediastinum is not widened. There is platelike atelectasis or scarring in the right lung base. Left lung is clear. No pleural e ffusions. No pneumothorax. No fractures. IMPRESSION: Scarring or platelike atelectasis in the right lung base, slightly increased from 2016. The left lung is presently clear. DATA REPOSITORY: RADIATION DOSE DELIVERED:
[2023-12-31 21:45] LABS: Abs Immature Grans 0.02 10^3/uL (0.0-0.06); Absolute Basophil Count 0.02 10^3/uL (0.0-0.2); Absolute Eosinophil Count 0.02 10^3/uL (0.0-0.7); Absolute Lymphocyte Count 0.73 10^3/uL (1.2-3.4); Absolute Monocyte Count 0.55 10^3/uL (0.1-0.8); Absolute Neutrophil Count 5.25 10^3/uL (1.2-6.7); Basophils % 0.3; Eosinophils % 0.3; HGB 13.8 g/dL (13.5-17.5); Immature Grans % 0.3; Lymphocytes % 11.1; MCH 30.9 pg (27.0-33.0); MCHC 33.7 % (32.0-36.0); MCV 92 fL (80-95); Monocytes % 8.3; Neutrophils % 79.7; Platelet Count 109 10^3/uL (130-400); RBC 4.46 10^6/uL (4.36-5.78); RDW-SD 43.7 fL; WBC 6.59 10^3/uL (4.4-10.8)
[2023-12-31 22:04] LABS: Ammonia 39 umol/L (11-32)
--- NOTE | 2023-12-31 22:06 | DI.CT_ITS ---
Exam(s) CT HEAD WO EXAM: CT HEAD WO CLINICAL HISTORY: Fall head strike. TECHNIQUE: Imaging Protocol: Axial computed tomography images with coronal and sagittal reformatted images were created and reviewed COMPARISON: CT CT HEAD CERVICAL SPINE WO from 07/02/2023 FINDINGS: There are no skull fractures. There is no fluid in the visualized paranasal sinuses. There is no evidence of intracranial hemorrhage, mass effect, or shift of midline structures. There are no extra-axial fluid collections. The ventricles are not enlarged or shifted and there is no blo od within the ventricular system nor within the basal cisterns. There is an area of abnormal white matter hypodensity in the left parietal periventricular white john er which exhibits minimal if any significant change from prior CT scan of 07/02/2023 and probably rel ated to prior ischemic event. No new obvious acute findings. IMPRESSION: No obvious acute intracranial findings on this noninfused CT scan of the brain. Left parietal white lobe matter changes are stable and most probably refractive prior ischemic event. RADIATION DOSE DELIVERED: Total DLP DATA REPOSITORY: All CT scans at this facility are submitted to the National Radiology Data Registry (NRDR) Dose Index Registry (DIR) with the [employer] (A[employer]). RADIATION OPTIMIZATION: All CT scans at this facility use at least one of these dose optimization te chniques: automated exposure control; mA and/or kV adjustment per patient size (includes targeted exa ms where dose is matched to clinical indication); or iterative reconstruction.
[2023-12-31 22:12] LABS: ALT 51 U/L (16-63); AST 52 U/L (15-37); Albumin 3.9 g/dL (3.4-5.0); Alkaline Phosphatase 91 U/L (46-116); Anion Gap 9.6 mmol/L (3-11); BUN 13 mg/dL (7-18); Bilirubin, Total 0.8 mg/dL (0.2-1.0); CO2 29.4 mmol/L (21.0-32.0); CREATININE 1.1 mg/dL (0.70-1.30); Calcium 8.5 mg/dL (8.5-10.1); Chloride 99 mmol/L (98-107); Creatine Kinase 414 U/L (39-308); ETHANOL BLOOD < 3.0 mg/dL (<10); Glucose 150 mg/dL (74-106); Sodium 138 mmol/L (136-145); Total Protein 7.2 g/dL (6.4-8.2); Troponin I < 50 ng/L (< or =60)
[2023-12-31 22:13] LABS: Potassium 2.6 mmol/L (3.5-5.1)
[2023-12-31 22:16] LABS: COVID-19 PCR Negative (Negative); Influenza A PCR Positive (Negative); Influenza B PCR Negative (Negative); RSV PCR Negative (Negative)
[2023-12-31] MEDS: cefTRIAXone 2 GM/50 ML BAG IVPB (22:16)
[2023-12-31 22:18] LABS: Source Nasopharynx
[2023-12-31] MEDS: Normal Saline 500 ML IV ×2 (22:19→22:53)
[2023-12-31 22:22] LABS: BE (Venous) 6 mmol/L (-2-3); HCO3 (Venous) 30 mmol/L (23-28); O2 Sat (Venous) 88 %; TCO2 (Venous) 27 mmol/L (24-29); pCO2 (Venous) 46 mmHg (41-51); pH (Venous) 7.43 (7.31-7.41); pO2 (Venous) 52 mmHg
[2023-12-31 22:23] LABS: D-Dimer 520 ng/mlFEU (<500)
[2023-12-31 22:24] LABS: Lactate 0.9 mmol/L (0.6-1.4)
[2023-12-31] MEDS: POTASSIUM CHLORIDE 20 MEQ/100 ML BAG 50 MEQ IVPB (22:32)
--- NOTE | 2023-12-31 22:38 | HPE_ITS ---
Date of service: 12/31/23 Time of Service: 22:38 Assessment and Plan Assessment and plan (1) Influenza A: Start date: 12/31/23 Status: Acute Assessment and plan: This is a 63-year-old gentleman who has had new onset fever with cough and processes causing syncopal episodes. He has had a negative cardiac workup and this appears to be vagally with patient having slight hypoxemia with acute influenza A infection. He has a slightly thick With metabolic alkalosis on VBG. He is a previous alcoholic having drunk at least for years though he had recent ED visit with of alcohol level. He does admit he occasionally slips. He is not drinking daily. He does have alcoholic cirrhosis but also associated infection which he thinks is hepatitis C and fatty liver. The left breast abnormality most likely secondary to his chronic antihypertensives with diuretic but also secondary to alcohol use and cirrhosis. He does have thrombocytopenia but no bleeding with his emesis. He did strike his head without sequela and bruising over his left occiput area of the scalp. He will be admitted for symptomatic care initiating Tamiflu with symptoms beginning less than 48 hours ago. O2 supplementation and monitor for complications of his influenza A infection. He most likely will not go through alcohol withdrawal. He is a full code. (2) Syncope and collapse: Start date: 12/31/23 Status: Acute Assessment and plan: Most likely vagal associated with coughing paroxysms and influenza A infection. Cardiac monitoring and watch for dysrhythmias. Cardiac workup was negative with negative troponins. CT of the head was negative for any acute neurological sequela from his falls. (3) Acute hypokalemia: Start date: 12/31/23 Status: Acute Assessment and plan: IV repletion with oral repletion as tolerated. Patient is on hydrochlorothiazide and may need to be on chronic oral potassium supplementation. Follow-up lab and adjust replacement. (4) Hypomagnesemia: Start date: 12/31/23 Status: Acute Assessment and plan: IV repletion and follow-up lab. Patient maintained on chronic oral supplementation with hypothyroid for blood pressure control and history of alcoholic cirrhosis. He also may have intermittent alcohol use which could contribute to this deficiency. (5) Cirrhosis of liver: Status: Chronic Assessment and plan: Continue to follow-up with [facility] hepatology for evaluation and treatment of his multifactorial cirrhosis including chronic alcoholism in the past was not present but also fatty liver and what patient thinks is hepatitis C infection. Further lab evaluation would not be done during this hospitalization with patient following up closely at the OR. Qualifiers: Hepatic cirrhosis type: other cirrhosis Qualified Code(s): K74.69 - Other cirrhosis of liver (6) Thrombocytopenia: Status: Acute Assessment and plan: Most likely sequela of chronic alcohol cirrhosis. DVT prophylaxis will be modified. There not appear to be any consequences with his recent falls or evidence of bleeding. (7) Alcohol use disorder: Status: Chronic Assessment and plan: Patient has had recent ED visit with positive alcohol level but states that he is not drinking daily as he had in the past. Advised complete cessation and [facility]. (8) HTN (hypertension): Status: Chronic Assessment and plan: Stable with patient on medical therapy. We have decreased dose of hydrochlorothiazide and consider potassium wasting [facility] with the [facility]. Qualifiers: Hypertension type: primary hypertension Qualified Code(s): I10 - Essential (primary) hypertension (9) Borderline hyperglycemia: Status: Chronic Assessment and plan: Patient states he has had borderline diabetes with hemoglobin A1c just below 6.5 by recent testing. Advised weight loss and better diet with follow-up PCP at the OR. Comfortable not be followed unless morning labs shows markedly elevated glucose measurements for the hospital stay. He is not on therapy for diabetes at this time. History of Present Illness History of Present Illness Chief Complaint: Coughing paroxysms with syncope N arrative: This is a 63-year-old male patient who goes to the OR and is being seen recently for alcoholic cirrhosis and what sounds like hepatitis C infection causing worsening liver disease presenting to the ED at the hospital with syncope and injury to the left side of his head after having coughing paroxysms with new onset fever within the last 24 hours. He was cleared to go home and continue to have coughing with syncope at home prompting evaluation at this facility. He did have fever with no white count and did test positive for influenza A. He also has chronic sequela of his cirrhosis with slowly elevated PT/INR and thrombocytopenia as well as electrolyte abnormality with intermittent alcohol use though he states he quit 5 years ago. He did have a low potassium and magnesium. He is on potassium wasting diuretic for his blood pressure control. He had mild hypoxemia with his acute influenza A pneumonitis but no overt infiltrate and was not initiated on antibiotic therapy after his initial dose of ceftriaxone and vancomycin in the ED. Because his symptoms began less than 48 hours ago, he was started on Tamiflu after his symptoms of nausea or control. He offers no complaints of bruising with his thrombocytopenia and states that he does not drink alcohol presently. He does not appear to be at risk for alcohol withdrawal. He was admitted for symptomatic care and repletion of his electrolytes as well as treatment of his acute hypoxemia associated with his influenza A. He did have a slightly elevated pH on VBG indicating some hyperventilation with his respiratory symptoms. He is not producing sputum with his cough. He had no other GI complaints other than nausea and vomiting. Patient is a full code. Review of Systems Narrative: 13 point review of systems otherwise unrevealing or stable. [facility] All Active Problems (Updated 01/01/24 @ 10:41 by Bob Duval) Cirrhosis of liver (Chronic) Alcoholic cirrhosis of liver without ascites (Acute) Alcohol use disorder (Chronic) Thrombocytopenia (Acute) Borderline hyperglycemia (Chronic) Acute hypoxemic respiratory failure (Acute) HTN (hypertension) (Chronic) Syncope and collapse (Acute) Influenza A (Acute) Hypomagnesemia (Acute) Fall down stairs (Acute) Scalp abrasion (Acute) Alcohol abuse with intoxication with complication (Acute) Acute hypokalemia (Acute) Social History Smoking/Tobacco Use Status: Former Tobacco Use Smoking risk assessment performed?: Yes Alcohol Intake: current Alcohol Intake frequency: a few times a month Drug use: Never Substance use type: does not use Housing: apartment Do you feel safe at home: Yes Do you feel safe in your relationship?: Yes Meds Allergies and Home Medications Allergies Allergy/AdvReac Type Severity Reaction Status Date / Time Penicillins Allergy Unverified 12/15/22 13:54 Home Medications Medication Instructions Recorded Confirmed Type hydrochlorothiazide 25 mg tablet 50 mg PO DAILY 12/17/13 12/31/23 History ibuprofen 800 mg tablet 800 mg PO TID PRN PRN 12/17/13 12/31/23 History omeprazole 20 mg capsule,delayed 20 mg PO BID 12/17/13 12/31/23 History release simvastatin 20 mg tablet 10 mg PO DAILY 12/17/13 12/31/23 History lisinopril 10 mg tablet 10 mg PO DAILY 12/14/15 12/31/23 History gabapentin 300 mg capsule 300 mg PO TID 11/21/23 12/31/23 History methocarbamol 1,000 mg tablet 1,000 mg PO TID PRN muscle spasm 11/21/23 12/31/23 Rx #30 tabs sertraline 50 mg tablet 25 mg PO ONCE 12/31/23 12/31/23 History Exam Narrative Exam Narrative: General: Patient appears appropriate for age, alert and oriented x 3 and in no acute distress. He is a vague historian especially when discussing alcohol use. HEENT: Normocephalic, coarsened facial features, bruising without blanching over left lower scalp and occiput area without swelling and slight tenderness to palpation. Eyes with pupils equal and reactive light symmetrically, extraocular movement intact and sclera anicteric. Oropharynx with slightly dry mucosa and fair dentition. Neck: Supple without JVD. Back: Stooped posture without CVA tenderness. Lungs: Fair aeration with bronchovesicular breath sounds diffusely and occasional coarse crackle over right lung base without dullness to percussion. No focalizing rales or rhonchi. No expiratory wheeze. Heart: Distant sounds with regular rate and rhythm. No appreciable murmur or gallop. Abdomen: Slightly obese contour, soft nontender to palpation with no palpable hepatosplenomegaly. No guarding or rebound. Bowel sounds positive all quadrants. Genitalia/rectal: Exam deferred. Extremities: Without clubbing, cyanosis or pitting edema. Fair capillary refill. Skin: Normal color with actinic changes over sun exposed areas. Warm and dry. No bruising except over left occiput area of scalp and neck. Neuro: Cranial nerves II to XII is intact, no focal motor deficits. No tremor. Psych: Flattened affect with normal mood. No abnormal thought processes. Remote and recent memory appear to be grossly intact. Results Imaging Imaging Studies: Exam: XR Chest Exam date and time: 12/31/2023 10:00 PM Age: 63 years old Clinical indication: Shortness of breath; Patient HX: SOB TECHNIQUE: Imaging protocol: Radiologic exam of the chest. Views: 1 view. COMPARISON: CT CHEST/ABD/PEL W 07/02/2023 11:53 PM FINDINGS: Lungs: Mild right basilar linear scarring versus atelectasis. No acute lung infiltrates. Pleural spaces: No pleural effusion. No pneumothorax. Heart/Mediastinum: Normal heart size. No mediastinal widening. Bones/joints: Degenerative thoracic spine features. IMPRESSION: 1. Right lung base linear atelectasis versus scar. 2. No acute infiltrates or edema. 3. No pleural effusion or pneumothorax. - Exam: CT Head Without Contrast Exam date and time: 12/31/2023 9:59 PM Age: 63 years old Clinical indication: Other: Fall, head strike TECHNIQUE: Imaging protocol: Computed tomography of the head without contrast. COMPARISON: CT HEAD CERVICAL SPINE WO 07/02/2023 11:49 PM FINDINGS: Brain: Mild cerebral atrophy. No intracranial hemorrhage. No cerebral edema. No large territory acute CVA. No intracranial hemorrhage. Cerebral ventricles: No ventriculomegaly. Paranasal sinuses: Visualized sinuses are unremarkable. No fluid levels. Mastoid air cells: Visualized mastoid air cells are well aerated. Bones/joints: No skull fracture. Soft tissues: Scalp soft tissues are unremarkable. IMPRESSION: 1. No intracranial hemorrhage. 2. Mild cerebral atrophy. 3. No skull fracture. Labs 01/01/24 06:00 01/01/24 06:00 Labs: Laboratory Results - last 24 hr 12/31/23 12/31/23 12/31/23 21:26 21:28 21:29 WBC 6.59 RBC 4.46 Hgb 13.8 Hct 41.0 MCV 92 MCH 30.9 MCHC 33.7 RDW 13.0 Plt Count 109 L MPV 11.0 Immature Gran % 0.3 Neutrophils % 79.7 Lymphocytes % 11.1 Monocytes % 8.3 Eosinophils % 0.3 Basophils % 0.3 Nucleated RBC % 0.0 Absolute Neutrophils 5.25 Absolute Lymphocytes 0.73 L Absolute Monocytes 0.55 Absolute Eosinophils 0.02 Absolute Basophils 0.02 D-Dimer 520 H VBG pH VBG pCO2 VBG pO2 VBG HCO3 VBG Total CO2 VBG O2 Saturation VBG Base Excess VBG Lactate Sodium 138 Potassium 2.6 L* Chloride 99 Carbon Dioxide 29.4 Anion Gap 9.6 BUN 13 Creatinine 1.1 Est GFR (CKD-EPI 2020) 74.50 Glucose 150 H Calcium 8.5 Total Bilirubin 0.8 AST 52 H ALT 51 Alkaline Phosphatase 91 Ammonia 39 H Creatine Kinase 414 H Troponin I < 50 Total Protein 7.2 Albumin 3.9 Ethyl Alcohol < 3.0 COVID-19 Source Nasopharynx SARS-CoV-2 (PCR) Negative Influenza Type A (PCR) Positive A Influenza Type B (PCR) Negative RSV (PCR) Negative 12/31/23 22:18 WBC RBC Hgb Hct MCV MCH MCHC RDW Plt Count MPV Immature Gran % Neutrophils % Lymphocytes % Monocytes % Eosinophils % Basophils % Nucleated RBC % Absolute Neutrophils Absolute Lymphocytes Absolute Monocytes Absolute Eosinophils Absolute Basophils D-Dimer VBG pH 7.43 H VBG pCO2 46 VBG pO2 52 VBG HCO3 30 H VBG Total CO2 27 VBG O2 Saturation 88 VBG Base Excess 6 H VBG Lactate 0.9 Sodium Potassium Chloride Carbon Dioxide Anion Gap BUN Creatinine Est GFR (CKD-EPI 2020) Glucose Calcium Total Bilirubin AST ALT Alkaline Phosphatase Ammonia Creatine Kinase Troponin I Total Protein Albumin Ethyl Alcohol COVID-19 Source SARS-CoV-2 (PCR) Influenza Type A (PCR) Influenza Type B (PCR) RSV (PCR) Last Vital Signs Temp 36.6 C 12/31/23 21:10 Pulse 99 H 12/31/23 22:30 Resp 19 12/31/23 22:32 BP 129/79 12/31/23 22:30 Pulse Ox 94 12/31/23 22:32 Time Spent Time spent with Patient: >75 minutes Time was spent: preparing to see the patient(eg.review tests), obtaining and/or reviewing separately otained hiistory, ordering medications,tests, procedures, referring, communicating with other health career development consultant, indepentently interpreting results, counseling the patient and care coordination
--- NOTE | 2023-12-31 22:45 | DI.VRAD_ITS ---
PROCEDURE INFORMATION: Exam: XR Chest Exam date and time: 12/31/2023 10:00 PM Age: 63 years old Clinical indication: Shortness of breath; Patient HX: SOB TECHNIQUE: Imaging protocol: Radiologic exam of the chest. Views: 1 view. COMPARISON: CT CHEST/ABD/PEL W 07/02/2023 11:53 PM FINDINGS: Lungs: Mild right basilar linear scarring versus atelectasis. No acute lung infiltrates. Pleural spaces: No pleural effusion. No pneumothorax. Heart/Mediastinum: Normal heart size. No mediastinal widening. Bones/joints: Degenerative thoracic spine features. IMPRESSION: 1. Right lung base linear atelectasis versus scar. 2. No acute infiltrates or edema. 3. No pleural effusion or pneumothorax. Dictated and Authenticated by: Abner Reyes MD. Ordering:ZION aDllas MD
--- NOTE | 2023-12-31 22:46 | DI.VRAD_ITS ---
PROCEDURE INFORMATION: Exam: CT Head Without Contrast Exam date and time: 12/31/2023 9:59 PM Age: 63 years old Clinical indication: Other: Fall, head strike TECHNIQUE: Imaging protocol: Computed tomography of the head without contrast. COMPARISON: CT HEAD CERVICAL SPINE WO 07/02/2023 11:49 PM FINDINGS: Brain: Mild cerebral atrophy. No intracranial hemorrhage. No cerebral edema. No large territory acute CVA. No intracranial hemorrhage. Cerebral ventricles: No ventriculomegaly. Paranasal sinuses: Visualized sinuses are unremarkable. No fluid levels. Mastoid air cells: Visualized mastoid air cells are well aerated. Bones/joints: No skull fracture. Soft tissues: Scalp soft tissues are unremarkable. IMPRESSION: 1. No intracranial hemorrhage. 2. Mild cerebral atrophy. 3. No skull fracture. Dictated and Authenticated by: Abner Reyes MD. Ordering:ZION Dallas MD
[2023-12-31 22:56] LABS: Magnesium 1.5 mg/dL (1.8-2.4)
[2023-12-31 22:58] LABS: Troponin I < 50 ng/L (< or =60)
[2023-12-31 23:12] LABS: Bilirubin Negative (Negative); Blood Negative (Negative); Clarity Clear (Clear); Glucose Negative (Negative); Ketones Negative (Negative); Leukocyte Esterase Negative (Negative); Nitrite Negative (Negative); Specific Gravity 1.015 (1.005-1.025); Urobilinogen >=8.0 mg/dL (Up to 0.2)
[2023-12-31 23:15] LABS: INR 1.3 (0.9-1.1); Prothrombin Time 12.7 sec (9.1-11.1)
[2023-12-31] MEDS: Potassium Bicarbonate/Cit AC 25 MEQ TABLET.EFF 50 MEQ PO (23:32)
[2024-01-01] VITALS (70 sets, daily range): BP systolic 109–142; BP diastolic 70–88; PULSE 81–103; RESP 15–41; TEMP 36.6–38.3; O2SAT 94–97
--- NOTE | 2024-01-01 00:35 | W.PCEDHO ---
Registration Status: REG ER Primary Language: Preferred Language: Armenian ED Information & Data Chief Complaint Dizzy/Sync 12/31/23 21:15 Triage Note pt c/o nosebleed earlier, 12/31/23 21:10 was seen at [facility] earlier, syncopal episode and hit head after dc and friend called ems. feeling lightheaded and lethargic now. Most Recent Vital Signs Temperature 36.6 C 12/31/23 21:10 Pulse 105 H 12/31/23 23:31 Pulse 101 H 12/31/23 23:31 Respiratory Rate 23 12/31/23 23:31 Respiratory Effort Normal 12/31/23 21:14 Blood Pressure 139/81 12/31/23 23:31 Blood Pressure Mean 100 12/31/23 23:31 Pulse Oximetry 95 12/31/23 23:31 Allergies Penicillins Allergy (Unverified 12/15/22 13:54) IV IV Catheter Type [Right Peripheral IV Antecubital] IV Catheter Gauge [Right 18 Antecubital] Diet Orders Category Date Time Status Heart Healthy Eating [DIET] Nutrition 01/01/24 Breakfast Active Diagnostics 01/01/24 01/01/24 12/31/23 Range/Units 05:35 00:16 23:06 WBC Pending (4.4-10.8) 10^3/uL RBC Pending (4.36-5.78) 10^6/uL Hgb Pending (13.5-17.5) g/dL Hct Pending (40.0-50.0) % MCV Pending (80-95) fL MCH Pending (27.0-33.0) pg MCHC Pending (32.0-36.0) % RDW Pending (11.8-14.1) % Plt Count Pending (130-400) 10^3/uL MPV Pending (8.0-11.0) fL Immature Gran % Neutrophils % Lymphocytes % Monocytes % Eosinophils % Basophils % Nucleated RBC % (0.0-0.3) % Absolute Neutrophils (1.2-6.7) 10^3/uL Absolute Lymphocytes (1.2-3.4) 10^3/uL Absolute Monocytes (0.1-0.8) 10^3/uL Absolute Eosinophils (0.0-0.7) 10^3/uL Absolute Basophils (0.0-0.2) 10^3/uL PT (9.1-11.1) sec INR (0.9-1.1) D-Dimer (<500) ng/mlFEU VBG pH (7.31-7.41) VBG pCO2 (41-51) mmHg VBG pO2 mmHg VBG HCO3 (23-28) mmol/L VBG Total CO2 (24-29) mmol/L VBG O2 Saturation % VBG Base Excess (-2-3) mmol/L VBG Lactate (0.6-1.4) mmol/L Sodium Pending (136-145) mmol/L Potassium Pending (3.5-5.1) mmol/L Chloride Pending (98-107) mmol/L Carbon Dioxide Pending (21.0-32.0) mmol/L Anion Gap Pending (3-11) mmol/L BUN Pending (7-18) mg/dL Creatinine Pending (0.70-1.30) mg/dL Est GFR (CKD-EPI 2020) Pending (mL/min/1.73m2) Glucose Pending (74-106) mg/dL Calcium Pending (8.5-10.1) mg/dL Magnesium Pending (1.8-2.4) mg/dL Total Bilirubin Pending (0.2-1.0) mg/dL AST Pending (15-37) U/L ALT Pending (16-63) U/L Alkaline Phosphatase Pending (46-116) U/L Ammonia Pending (11-32) umol/L Creatine Kinase Pending (39-308) U/L Troponin I Pending (< or =60) ng/L Total Protein Pending (6.4-8.2) g/dL Albumin Pending (3.4-5.0) g/dL Urine Color Yellow (Yellow) Urine Clarity Clear (Clear) Urine pH 7.0 (5-8) Ur Specific [place] 1.015 (1.005-1.025) Urine Protein Negative (Neg-Trace) mg/dL Urine Ketones Negative (Negative) mg/dL Urine Blood Negative (Negative) Urine Nitrite Negative (Negative) Urine Bilirubin Negative (Negative) Urine Urobilinogen >=8.0 H (Up to 0.2) mg/dL Ur Leukocyte Esterase Negative (Negative) Urine Glucose Negative (Negative) mg/dL Ethyl Alcohol (<10) mg/dL COVID-19 Source SARS-CoV-2 (PCR) (Negative) Influenza Type A (PCR) (Negative) Influenza Type B (PCR) (Negative) RSV (PCR) (Negative) 12/31/23 12/31/23 12/31/23 Range/Units 22:18 21:29 21:28 WBC (4.4-10.8) 10^3/uL RBC (4.36-5.78) 10^6/uL Hgb (13.5-17.5) g/dL Hct (40.0-50.0) % MCV (80-95) fL MCH (27.0-33.0) pg MCHC (32.0-36.0) % RDW (11.8-14.1) % Plt Count (130-400) 10^3/uL MPV (8.0-11.0) fL Immature Gran % Neutrophils % Lymphocytes % Monocytes % Eosinophils % Basophils % Nucleated RBC % (0.0-0.3) % Absolute Neutrophils (1.2-6.7) 10^3/uL Absolute Lymphocytes (1.2-3.4) 10^3/uL Absolute Monocytes (0.1-0.8) 10^3/uL Absolute Eosinophils (0.0-0.7) 10^3/uL Absolute Basophils (0.0-0.2) 10^3/uL PT 12.7 H (9.1-11.1) sec INR 1.3 H (0.9-1.1) D-Dimer (<500) ng/mlFEU VBG pH 7.43 H (7.31-7.41) VBG pCO2 46 (41-51) mmHg VBG pO2 52 mmHg VBG HCO3 30 H (23-28) mmol/L VBG Total CO2 27 (24-29) mmol/L VBG O2 Saturation 88 % VBG Base Excess 6 H (-2-3) mmol/L VBG Lactate 0.9 (0.6-1.4) mmol/L Sodium (136-145) mmol/L Potassium (3.5-5.1) mmol/L Chloride (98-107) mmol/L Carbon Dioxide (21.0-32.0) mmol/L Anion Gap (3-11) mmol/L BUN (7-18) mg/dL Creatinine (0.70-1.30) mg/dL Est GFR (CKD-EPI 2020) (mL/min/1.73m2) Glucose (74-106) mg/dL Calcium (8.5-10.1) mg/dL Magnesium 1.5 L (1.8-2.4) mg/dL Total Bilirubin (0.2-1.0) mg/dL AST (15-37) U/L ALT (16-63) U/L Alkaline Phosphatase (46-116) U/L Ammonia 39 H (11-32) umol/L Creatine Kinase (39-308) U/L Troponin I < 50 (< or =60) ng/L Total Protein (6.4-8.2) g/dL Albumin (3.4-5.0) g/dL Urine Color (Yellow) Urine Clarity (Clear) Urine pH (5-8) Ur Specific [place] (1.005-1.025) Urine Protein (Neg-Trace) mg/dL Urine Ketones (Negative) mg/dL Urine Blood (Negative) Urine Nitrite (Negative) Urine Bilirubin (Negative) Urine Urobilinogen (Up to 0.2) mg/dL Ur Leukocyte Esterase (Negative) Urine Glucose (Negative) mg/dL Ethyl Alcohol (<10) mg/dL COVID-19 Source Nasopharynx SARS-CoV-2 (PCR) Negative (Negative) Influenza Type A (PCR) Positive A (Negative) Influenza Type B (PCR) Negative (Negative) RSV (PCR) Negative (Negative) 12/31/23 Range/Units 21:26 WBC 6.59 (4.4-10.8) 10^3/uL RBC 4.46 (4.36-5.78) 10^6/uL Hgb 13.8 (13.5-17.5) g/dL Hct 41.0 (40.0-50.0) % MCV 92 (80-95) fL MCH 30.9 (27.0-33.0) pg MCHC 33.7 (32.0-36.0) % RDW 13.0 (11.8-14.1) % Plt Count 109 L (130-400) 10^3/uL MPV 11.0 (8.0-11.0) fL Immature Gran % 0.3 Neutrophils % 79.7 Lymphocytes % 11.1 Monocytes % 8.3 Eosinophils % 0.3 Basophils % 0.3 Nucleated RBC % 0.0 (0.0-0.3) % Absolute Neutrophils 5.25 (1.2-6.7) 10^3/uL Absolute Lymphocytes 0.73 L (1.2-3.4) 10^3/uL Absolute Monocytes 0.55 (0.1-0.8) 10^3/uL Absolute Eosinophils 0.02 (0.0-0.7) 10^3/uL Absolute Basophils 0.02 (0.0-0.2) 10^3/uL PT (9.1-11.1) sec INR (0.9-1.1) D-Dimer 520 H (<500) ng/mlFEU VBG pH (7.31-7.41) VBG pCO2 (41-51) mmHg VBG pO2 mmHg VBG HCO3 (23-28) mmol/L VBG Total CO2 (24-29) mmol/L VBG O2 Saturation % VBG Base Excess (-2-3) mmol/L VBG Lactate (0.6-1.4) mmol/L Sodium 138 (136-145) mmol/L Potassium 2.6 L* (3.5-5.1) mmol/L Chloride 99 (98-107) mmol/L Carbon Dioxide 29.4 (21.0-32.0) mmol/L Anion Gap 9.6 (3-11) mmol/L BUN 13 (7-18) mg/dL Creatinine 1.1 (0.70-1.30) mg/dL Est GFR (CKD-EPI 2020) 74.50 (mL/min/1.73m2) Glucose 150 H (74-106) mg/dL Calcium 8.5 (8.5-10.1) mg/dL Magnesium (1.8-2.4) mg/dL Total Bilirubin 0.8 (0.2-1.0) mg/dL AST 52 H (15-37) U/L ALT 51 (16-63) U/L Alkaline Phosphatase 91 (46-116) U/L Ammonia (11-32) umol/L Creatine Kinase 414 H (39-308) U/L Troponin I < 50 (< or =60) ng/L Total Protein 7.2 (6.4-8.2) g/dL Albumin 3.9 (3.4-5.0) g/dL Urine Color (Yellow) Urine Clarity (Clear) Urine pH (5-8) Ur Specific [place] (1.005-1.025) Urine Protein (Neg-Trace) mg/dL Urine Ketones (Negative) mg/dL Urine Blood (Negative) Urine Nitrite (Negative) Urine Bilirubin (Negative) Urine Urobilinogen (Up to 0.2) mg/dL Ur Leukocyte Esterase (Negative) Urine Glucose (Negative) mg/dL Ethyl Alcohol < 3.0 (<10) mg/dL COVID-19 Source SARS-CoV-2 (PCR) (Negative) Influenza Type A (PCR) (Negative) Influenza Type B (PCR) (Negative) RSV (PCR) (Negative) 12/31/23 21:26 Blood Culture - Pending Blood 12/31/23 21:26 Blood Culture - Pending Blood Intake and Output - 24 Hour Total 12/31/23 20:57 thru 12/31/23 23:39 Intake Total 50 Balance 50 Weight 95 kg Intake: IV 50 Falls Risk Assessment History of Falls Previous History 12/31/23 21:14 Contributing Factors Unstable 12/31/23 21:14 Ambulatory Aids Independent 12/31/23 21:14 Tubes/Lines None 12/31/23 21:14 Gait Evaluation No gait disturbance 12/31/23 21:14 Cognition No cognitive impairment 12/31/23 21:14 Fall Total Score 18 12/31/23 21:14 Level of Risk Standard/Low Risk 12/31/23 21:14 Problems (Last Updated 12/31/23 @ 22:57 by Bob Duval) Alcohol use disorder (Chronic) Thrombocytopenia (Acute) Borderline hyperglycemia (Chronic) Acute hypoxemic respiratory failure (Acute) HTN (hypertension) (Chronic) Syncope and collapse (Acute) Influenza A (Acute) Hypomagnesemia (Acute) Acute hypokalemia (Acute) v v v v v v v v v Sending and/or Receiving Nurses: Please use comment section below to note any information pertinent to the patient hand-off not included above. Information / Comments: syncope and falls today. alert and oriented. dizzy, syncopal and flu A positivehad a nosebleed today. temp neg. 139/81. sinus tach with HR of 105. no PVC's. stands ok. skin negative. patient is usually independent. medicated with 2 IVF boluses. 50 MEQ of po K> and IV runs of potassium. Vancomycin 199mg running in now. also given 1 gram of rocephin. Report received from: Derek Robertson RN
[2024-01-01] MEDS: Acetaminophen 325 MG TAB PO ×3 (01:22→21:13)
[2024-01-01] MEDS: MAGNESIUM SULFATE 2 GM/50 ML BAG IVPB (01:22)
[2024-01-01] MEDS: Magnesium Oxide 400 MG TAB PO (01:26)
[2024-01-01 01:52] LABS: Troponin I < 50 ng/L (< or =60)
[2024-01-01 06:12] LABS: HGB 12.9 g/dL (13.5-17.5); MCH 30.6 pg (27.0-33.0); MCHC 33.1 % (32.0-36.0); MCV 93 fL (80-95); MPV 10.7 fL (8.0-11.0); RBC 4.21 10^6/uL (4.36-5.78); RDW 13.2 % (11.8-14.1); RDW-SD 44.8 fL; WBC 5.48 10^3/uL (4.4-10.8)
[2024-01-01 06:20] LABS: Ammonia 37 umol/L (11-32)
[2024-01-01 06:30] LABS: ALT 45 U/L (16-63); AST 47 U/L (15-37); Albumin 3.4 g/dL (3.4-5.0); Alkaline Phosphatase 90 U/L (46-116); Anion Gap 8.7 mmol/L (3-11); BUN 11 mg/dL (7-18); Bilirubin, Total 0.5 mg/dL (0.2-1.0); CO2 28.3 mmol/L (21.0-32.0); Calcium 8.2 mg/dL (8.5-10.1); Chloride 103 mmol/L (98-107); Creatine Kinase 333 U/L (39-308); Estimated GFR 83.52 (mL/min/1.73m2); Glucose 136 mg/dL (74-106); Magnesium 2.2 mg/dL (1.8-2.4); Sodium 140 mmol/L (136-145); Total Protein 6.6 g/dL (6.4-8.2)
[2024-01-01 06:34] LABS: Platelet Count 98 10^3/uL (130-400)
[2024-01-01] MEDS: Simvastatin 20 MG TAB 10 MG PO (07:42)
[2024-01-01] MEDS: Lisinopril 10 MG TAB PO (07:43)
[2024-01-01] MEDS: Oseltamivir 75 MG CAP PO ×2 (07:44→21:13)
[2024-01-01] MEDS: hydroCHLOROthiazide 25 MG TAB PO (07:44)
[2024-01-01] MEDS: Pantoprazole 40 MG VIAL IVP (07:44)
[2024-01-01] MEDS: Gabapentin 300 MG CAP PO ×3 (07:44→21:13)
--- NOTE | 2024-01-01 08:19 | PDOC.CMIN ---
Date of service: 01/01/24 Time of Service: 08:19 Care Management Initial Assmt Initial Assessment REASON FOR HOSPITALIZATION:: syncope, Influenza PREVIOUS FUNCTIONAL STATUS/SOCIAL/FAMILY SUPPORTS:: Arden lives in [place] with his Massiel. She has 2 daughters and Arden has 2 sons and a daughter, however he does is not in close contact with his children. 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 He is [facility]% [facility] connected. Arden is independent at baseline and does not receive any community services. CURRENT FUNCTIONAL STATUS:: Arden was sitting up in bed when CM met with him. He was wearing a procedure mask as well as nasal oxygen at 2L/min. He explained that his has stage IV cancer and is on chemotherapy and he wants to protect her as much as possible. Arden talked a bit about his benefits and the fact that he has for life. His 's oral chemotherapy agents cost about $1800/month and covers the expense. Arden was admitted with influenza and syncope. He reported that his chest really hurts whenever he coughs. He aches all over and also sees spots when he coughs and then gets light headed. Arden remains febrile with a temperature of 38.3C and is a bit tachycardic with HR in the 90s and low 100s. ADVANCE DIRECTIVES:: On file. Massiel Pal listed as [facility] Has patient been provided with info about the portal/API?: Yes Did the patient sign up for the portal?: Yes CODE STATUS:: Full Code INSURANCE COVERAGE / FINANCIAL ISSUES:: [facility] Medicare Replacement CURRENT HOME/COMMUNITY SERVICES/EQUIPMENT:: none PRIMARY CARE PHYSICIAN:: Frieda Stein POTENTIAL DISCHARGE NEEDS:: follow up with PCP and plan of care PATIENT/FAMILY EDUCATION NEEDS:: Review of discharge instructions, activity, limitations, follow up plan, discuss Ask Me Three TRANSPORTATION:: via private vehicle with family PLAN:: Anticipate Arden will be discharged home with no new services when medically cleared. He will follow up with his community providers and plan of care and transport with family. CM will follow and support discharge planning needs. PFSH All Active Problems (Updated 01/01/24 @ 10:41 by Bob Duval) Cirrhosis of liver (Chronic) Alcoholic cirrhosis of liver without ascites (Acute) Alcohol use disorder (Chronic) Thrombocytopenia (Acute) Borderline hyperglycemia (Chronic) Acute hypoxemic respiratory failure (Acute) HTN (hypertension) (Chronic) Syncope and collapse (Acute) Influenza A (Acute) Hypomagnesemia (Acute) Fall down stairs (Acute) Scalp abrasion (Acute) Alcohol abuse with intoxication with complication (Acute) Acute hypokalemia (Acute) Social History Smoking/Tobacco Use Status: Former Tobacco Use Smoking risk assessment performed?: Yes Alcohol Intake: current Alcohol Intake frequency: a few times a month Drug use: Never Substance use type: does not use Housing: apartment Do you feel safe at home: Yes Do you feel safe in your relationship?: Yes SDOH(Care Management) Screening Will the Patient Participate in the Screening?: Yes Do you worry about having a steady place to live?: no Problems where you live: no known problems In the past 12 months, have you had to go without electric, gas, oil or water in your home?: no Have you or anyone in your house had to go without enough food to eat?: yes Has lack of transportation kept you from medical appointments or from doing things needed for daily living?: no Has anyone in your support network made you feel unsafe for any reason?: no Health Related Social Needs Health related social needs: food insecurity(Z59.41)
[2024-01-01] MEDS: Normal Saline 1,000 ML 125 ML IV ×2 (09:36→18:21)
--- NOTE | 2024-01-01 12:27 | W.PM.PROGNOT ---
Date of Service Date of service: 01/01/24 Time of Service: 12:28 Assessment and Plan Assessment and plan (1) Influenza A: Status: Acute Assessment and plan: -presented with new onset fever with cough and processes causing syncopal episodes. -slight hypoxemia with acute influenza A infection -contiue tamiflu (2) Syncope and collapse: Status: Acute Assessment and plan: -Most likely vagal associated with coughing paroxysms and influenza A infection. -Cardiac monitoring and watch for dysrhythmias. -Cardiac workup was negative with negative troponins. -CT of the head was negative for any acute neurological sequela from his falls. (3) Acute hypokalemia: Status: Acute Assessment and plan: IV repletion with oral repletion as tolerated. Patient is on hydrochlorothiazide and may need to be on chronic oral potassium supplementation. Follow-up lab and adjust replacement. (4) Hypomagnesemia: Status: Acute Assessment and plan: -IV repletion and follow-up lab. -Patient maintained on chronic oral supplementation with hypothyroid for blood pressure control and history of alcoholic cirrhosis. -He also may have intermittent alcohol use which could contribute to this deficiency. (5) Cirrhosis of liver: Status: Chronic Assessment and plan: -Continue to follow-up with [facility] for evaluation and treatment of his multifactorial cirrhosis including chronic alcoholism in the past was not present but also fatty liver and what patient thinks is hepatitis C infection. -Further lab evaluation would not be done during this hospitalization with patient following up closely at the [facility]. Qualifiers: Hepatic cirrhosis type: other cirrhosis Qualified Code(s): K74.69 - Other cirrhosis of liver (6) Thrombocytopenia: Status: Acute Assessment and plan: -Most likely sequela of chronic alcohol cirrhosis. -DVT prophylaxis will be modified. -There not appear to be any consequences with his recent falls or evidence of bleeding. (7) Alcohol use disorder: Status: Chronic Assessment and plan: -Patient has had recent ED visit with positive alcohol level but states that he is not drinking daily as he had in the past. -Advised complete cessation and follow-up with [facility]. (8) HTN (hypertension): Status: Chronic Assessment and plan: -Stable with patient on medical therapy. -We have decreased dose of hydrochlorothiazide and consider potassium [facility]. Qualifiers: Hypertension type: primary hypertension Qualified Code(s): I10 - Essential (primary) hypertension (9) Borderline hyperglycemia: Status: Chronic Assessment and plan: Patient states he has had borderline diabetes with hemoglobin A1c just below 6.5 by recent testing. Advised weight loss and better diet with follow-up PCP at the [facility]. Comfortable not be followed unless morning labs shows markedly elevated glucose measurements for the hospital stay. He is not on therapy for diabetes at this time. Subjective Subjective Interval history since last seen: Patient states that he is feeling better today though he does intermittently have very uncomfortable coughing fits. Otherwise he has no other complaints or concerns at this time. Exam Narrative Exam Narrative: Well-appearing gentleman laying in bed in no acute distress, ANO x 4, 2 L nasal cannula in place, heart regular rate rhythm, lungs with mild diffuse coarse breath sounds throughout, abdomen soft, nontender, nondistended Objective Last Vital Signs Temp 100.9 F H 01/01/24 01:22 Pulse 83 01/01/24 08:00 Resp 24 01/01/24 09:20 BP 121/83 01/01/24 08:00 Pulse Ox 94 01/01/24 08:08 Laboratory Results - last 24 hr 12/31/23 12/31/23 12/31/23 21:26 21:28 21:29 WBC 6.59 RBC 4.46 Hgb 13.8 Hct 41.0 MCV 92 MCH 30.9 MCHC 33.7 RDW 13.0 Plt Count 109 L MPV 11.0 Immature Gran % 0.3 Neutrophils % 79.7 Lymphocytes % 11.1 Monocytes % 8.3 Eosinophils % 0.3 Basophils % 0.3 Nucleated RBC % 0.0 Absolute Neutrophils 5.25 Absolute Lymphocytes 0.73 L Absolute Monocytes 0.55 Absolute Eosinophils 0.02 Absolute Basophils 0.02 PT 12.7 H INR 1.3 H D-Dimer 520 H VBG pH VBG pCO2 VBG pO2 VBG HCO3 VBG Total CO2 VBG O2 Saturation VBG Base Excess VBG Lactate Sodium 138 Potassium 2.6 L* Chloride 99 Carbon Dioxide 29.4 Anion Gap 9.6 BUN 13 Creatinine 1.1 Est GFR (CKD-EPI 2020) 74.50 Glucose 150 H Calcium 8.5 Magnesium Total Bilirubin 0.8 AST 52 H ALT 51 Alkaline Phosphatase 91 Ammonia 39 H Creatine Kinase 414 H Troponin I < 50 Total Protein 7.2 Albumin 3.9 Urine Color Urine Clarity Urine pH Ur Specific Eleanor Urine Protein Urine Ketones Urine Blood Urine Nitrite Urine Bilirubin Urine Urobilinogen Ur Leukocyte Esterase Urine Glucose Ethyl Alcohol < 3.0 COVID-19 Source Nasopharynx SARS-CoV-2 (PCR) Negative Influenza Type A (PCR) Positive A Influenza Type B (PCR) Negative RSV (PCR) Negative 12/31/23 12/31/23 01/01/24 22:18 23:06 01:17 WBC RBC Hgb Hct MCV MCH MCHC RDW Plt Count MPV Immature Gran % Neutrophils % Lymphocytes % Monocytes % Eosinophils % Basophils % Nucleated RBC % Absolute Neutrophils Absolute Lymphocytes Absolute Monocytes Absolute Eosinophils Absolute Basophils PT INR D-Dimer VBG pH 7.43 H VBG pCO2 46 VBG pO2 52 VBG HCO3 30 H VBG Total CO2 27 VBG O2 Saturation 88 VBG Base Excess 6 H VBG Lactate 0.9 Sodium Potassium Chloride Carbon Dioxide Anion Gap BUN Creatinine Est GFR (CKD-EPI 2020) Glucose Calcium Magnesium 1.5 L Total Bilirubin AST ALT Alkaline Phosphatase Ammonia Creatine Kinase Troponin I < 50 < 50 Total Protein Albumin Urine Color Yellow Urine Clarity Clear Urine pH 7.0 Ur Specific Eleanor 1.015 Urine Protein Negative Urine Ketones Negative Urine Blood Negative Urine Nitrite Negative Urine Bilirubin Negative Urine Urobilinogen >=8.0 H Ur Leukocyte Esterase Negative Urine Glucose Negative Ethyl Alcohol COVID-19 Source SARS-CoV-2 (PCR) Influenza Type A (PCR) Influenza Type B (PCR) RSV (PCR) 01/01/24 01/01/24 05:35 06:00 WBC 5.48 RBC 4.21 L Hgb 12.9 L Hct 39.0 L MCV 93 MCH 30.6 MCHC 33.1 RDW 13.2 Plt Count 98 L MPV 10.7 Immature Gran % Neutrophils % Lymphocytes % Monocytes % Eosinophils % Basophils % Nucleated RBC % Absolute Neutrophils Absolute Lymphocytes Absolute Monocytes Absolute Eosinophils Absolute Basophils PT INR D-Dimer VBG pH VBG pCO2 VBG pO2 VBG HCO3 VBG Total CO2 VBG O2 Saturation VBG Base Excess VBG Lactate Sodium 140 Potassium 3.0 L Chloride 103 Carbon Dioxide 28.3 Anion Gap 8.7 BUN 11 Creatinine 1.0 Est GFR (CKD-EPI 2020) 83.52 Glucose 136 H Calcium 8.2 L Magnesium 2.2 Total Bilirubin 0.5 AST 47 H ALT 45 Alkaline Phosphatase 90 Ammonia 37 H Creatine Kinase Cancelled 333 H Troponin I Total Protein 6.6 Albumin 3.4 Urine Color Urine Clarity Urine pH Ur Specific Eleanor Urine Protein Urine Ketones Urine Blood Urine Nitrite Urine Bilirubin Urine Urobilinogen Ur Leukocyte Esterase Urine Glucose Ethyl Alcohol COVID-19 Source SARS-CoV-2 (PCR) Influenza Type A (PCR) Influenza Type B (PCR) RSV (PCR) Time Spent with Patient Time Spent with Patient: >50 minutes Time was spent: preparing to see the patient(eg.review tests), obtaining and/or reviewing separately otained hiistory, ordering medications,tests, procedures, referring, communicating with other health manager medicare marketing, indepentently interpreting results, counseling the patient and care coordination
[2024-01-01] MEDS: Sertraline 25 MG TAB PO (15:52)
[2024-01-01] MEDS: Methocarbamol 500 MG TAB 1000 MG PO (21:37)
[2024-01-01] MEDS: Normal Saline Flush 10 ML SYR (21:50)
[2024-01-02] MEDS: Normal Saline 1,000 ML 125 ML IV ×2 (02:23→10:30)
[2024-01-02 07:54] VITALS: BP 129/89; PULSE 72; RESP 17; TEMP 36.4; O2SAT 96
[2024-01-02] MEDS: hydroCHLOROthiazide 25 MG TAB PO (08:31)
[2024-01-02] MEDS: Simvastatin 20 MG TAB 10 MG PO (08:32)
[2024-01-02] MEDS: Lisinopril 10 MG TAB PO (08:32)
[2024-01-02] MEDS: Sertraline 25 MG TAB PO (08:32)
[2024-01-02] MEDS: Oseltamivir 75 MG CAP PO (08:32)
[2024-01-02] MEDS: Gabapentin 300 MG CAP PO ×2 (08:34→13:34)
[2024-01-02] MEDS: Benzonatate 100 MG CAP PO ×2 (08:34→13:34)
[2024-01-02] MEDS: Normal Saline Flush 10 ML SYR IVP (09:04)
[2024-01-02] MEDS: Pantoprazole 40 MG VIAL IVP (09:04)
[2024-01-02 12:13] VITALS: BP 133/79; PULSE 83; RESP 16; TEMP 36.9; O2SAT 96
[2024-01-02 15:34] VITALS: BP 133/82; PULSE 75; RESP 17; TEMP 36.3; O2SAT 93
--- NOTE | 2024-01-02 16:02 | W.PM.DS.N ---
Date of service: 01/02/24 Time of Service: 16:02 DS: Diagnosis Discharge Diagnosis (1) Influenza A: Status: Acute Asessment and Plan: Patient initially admitted with acute hypoxic respiratory failure secondary to influenza A infection. During hospitalization his oxygen requirements were weaned and he was subsequently transitioned to room air had good oxygen saturations. Ultimately, was determined that the patient was stable for discharge home. (2) Syncope and collapse: Status: Acute Asessment and Plan: Secondary to influenza as noted above (3) Acute hypokalemia: Status: Acute Asessment and Plan: Repleted and resolved (4) Hypomagnesemia: Status: Acute Asessment and Plan: Repleted and resolved (5) Cirrhosis of liver: Status: Chronic (6) Thrombocytopenia: Status: Acute (7) Alcohol use disorder: Status: Chronic (8) HTN (hypertension): Status: Chronic (9) Borderline hyperglycemia: Status: Chronic Discharge Plan Disposition Patient Disposition: Home Condition: Good Discharge Details Reason For Visit: Influenza A pneumonitis, Syncope, HTN.... Admit Date/Time: 12/31/23 22:41 Admit Provider: Bob Duval Attending Provider: Bob Duval Primary Care Provider: Frieda Stein Hospital Course Hospital Course: Patient initially admitted with acute hypoxic respiratory failure secondary to influenza A infection. During hospitalization his oxygen requirements were weaned and he was subsequently transitioned to room air had good oxygen saturations. Ultimately, was determined that the patient was stable for discharge home. Home Meds and New Rx's Prescriptions: Continued ibuprofen 800 MG tablet 800 mg PO TID PRN PRN simvastatin 20 MG tablet 10 mg PO DAILY omeprazole 20 MG capsule,delayed release(DR/EC) 20 mg PO BID hydrochlorothiazide 25 MG tablet 50 mg PO DAILY lisinopril 10 MG tablet 10 mg PO DAILY gabapentin 300 mg capsule 300 mg PO TID methocarbamol 1,000 mg tablet 1,000 mg PO TID PRN (Reason: muscle spasm) Qty: 30 0RF sertraline 50 mg tablet 25 mg PO DAILY Discharge Instructions Activity:: Activity as Tolerated Equipment/Supplies:: No Equipment Needed Diet:: As Tolerated Discharge Orders Discharge Orders: Discharge Order (Routine); Ordered 01/02/24 Ordered By: Nicolas Terrell DS: Summary Time Spent with Patient providing and/or coordinating discharge services: Greater than 30 minutes Status at Discharge Functional status at discharge: independent ambulation Overall status at discharge: patient is back to baseline Mental Status: mental status grossly normal Speech and Movement: speech and movement normal Mood: congruent mood Affect: normal affect Quality:SDOH Health Related Social Needs: Health related social needs food insecurity Exam Narrative Exam Narrative: Well-appearing gentleman laying in bed in no acute distress, ANO x 4, heart regular rate rhythm, lungs with mild diffuse coarse breath sounds throughout, abdomen soft, nontender, nondistended Psych Mental Status: mental status grossly normal Speech and Movement: speech and movement normal Mood: congruent mood Affect: normal affect DS: Data Vitals/I&O Vitals and I&O: Vital Signs Temperature 97.3 F L 01/02/24 15:34 Temperature Source Tympanic 01/02/24 15:34 Pulse 75 01/02/24 15:34 Pulse Rhythm Regular 01/02/24 14:44 Pulse 100 H 01/01/24 09:50 Respiratory Rate 17 01/02/24 15:34 Respiratory Effort Normal, Non-Labored 01/02/24 14:44 Respiratory Depth Normal 01/02/24 14:44 Respiratory Pattern Normal 01/02/24 14:44 Blood Pressure 133/82 01/02/24 15:34 Blood Pressure Mean 96 01/01/24 08:00 Blood Pressure Position Supine 01/01/24 00:43 Pulse Oximetry 93 01/02/24 15:34 Oxygen Delivery Method Room Air 01/02/24 15:34 Oxygen Flow Rate 0 01/02/24 15:34 Pain Level 7 01/02/24 15:34 Intake & Output 01/01/24 01/02/24 01/02/24 17:59 05:59 17:59 Intake Total 1400 / 1400 1000 / 2400 2250 / 2250 Output Total 2750 / 2750 1000 / 3750 Balance -1350 / -1350 0 / -1350 2250 / 2250 Weight 194 lb 10.691 oz 191 lb 12.835 oz Intake: IV 1000 / 1000 999 / 1999 Oral 400 / 400 240 / 240 Output: Urine 2750 / 2750 1000 / 3750 Other: Urine Color Yellow Yellow Pale Yellow Urine Appearance Clear Clear Clear Urine Odor Normal Normal Comment voids large volumes pT stated that he voided. Stool Size Moderate Small Moderate Stool Characteristics Soft Formed Soft Formed Brown Brown Voiding Methods Urinal Urinal Toilet Data Completed and Pending Labs on day of discharge: Preliminary micro results at discharge 12/31/23 21:26 Blood Culture - Preliminary Blood NO GROWTH 24 HOURS 12/31/23 21:26 Blood Culture - Preliminary Blood NO GROWTH 24 HOURS PFSH All Active Problems (Updated 01/02/24 @ 16:02 by Nicolas Terrell MD) Cirrhosis of liver (Chronic) Alcoholic cirrhosis of liver without ascites (Acute) Alcohol use disorder (Chronic) Thrombocytopenia (Acute) Borderline hyperglycemia (Chronic) Acute hypoxemic respiratory failure (Acute) HTN (hypertension) (Chronic) Syncope and collapse (Acute) Influenza A (Acute) Hypomagnesemia (Acute) Fall down stairs (Acute) Scalp abrasion (Acute) Alcohol abuse with intoxication with complication (Acute) Acute hypokalemia (Acute) Social History Smoking/Tobacco Use Status: Former Tobacco Use Smoking risk assessment performed?: Yes Alcohol Intake: current Alcohol Intake frequency: a few times a month Drug use: Never Substance use type: does not use Housing: apartment Do you feel safe at home: Yes Do you feel safe in your relationship?: Yes Time Spent with Patient Time Spent with Patient: <45 minutes Time was spent: preparing to see the patient(eg.review tests), obtaining and/or reviewing separately otained hiistory, ordering medications,tests, procedures, referring, communicating with other health vp care management, indepentently interpreting results, counseling the patient and care coordination
== END 2024-01-02 18:02 | disposition home or self-care (01) ==
LOC: ER 23:01 → MS 01-01 12:05 → ICU 01-01 13:53 → MS 01-01 13:54
PROVIDERS: Admitting Provider Family Medicine; Emergency Provider Emergency Medicine; PCP Physician Assistant; Visit Provider Family Medicine
DX: J10.01 Influenza due to other identified influenza virus with the same other identified influenza virus pneumonia (principal); J96.01 Acute respiratory failure with hypoxia; R55 Syncope and collapse; E87.6 Hypokalemia; E83.42 Hypomagnesemia; F10.90 Alcohol use, unspecified, uncomplicated; D69.6 Thrombocytopenia, unspecified; R73.9 Hyperglycemia, unspecified; I10 Essential (primary) hypertension; Z79.899 Other long term (current) drug therapy; I45.19 Other right bundle-branch block; R05.1 Acute cough; K70.30 Alcoholic cirrhosis of liver without ascites
CPT/HCPCS: 00123; 36415; 80053; 82550; 82805; 85027; 87040; 87637; 93005; 96365; 96367; 99285; 70450; 71045; 80320; 81003; 82140; 83605; 83735; 84484; 85025; 85379; 85610; 93010; 94760; 99223; 99233; 99238; J0696; J2470; J3370; J3475; J3480

== ENCOUNTER 2024-01-07 18:52 | Outpatient (REF) | payer MEDICARE, OTHER, SELFPAY ==
[2024-01-07 19:33] LABS: Anion Gap 12.6 mmol/L (3-11); BUN 7 mg/dL (7-18); CO2 25.4 mmol/L (21.0-32.0); Calcium 8.9 mg/dL (8.5-10.1); Chloride 97 mmol/L (98-107); Estimated GFR 83.52 (mL/min/1.73m2); Glucose 122 mg/dL (74-106); Potassium 3.1 mmol/L (3.5-5.1); Sodium 135 mmol/L (136-145)
== END 2024-01-07 18:53 | disposition home or self-care (01) ==
LOC: NCHCN 18:52
PROVIDERS: PCP Physician Assistant; Visit Provider Physician Assistant
DX: E87.6 Hypokalemia (principal)
CPT/HCPCS: 80048

== ENCOUNTER 2024-01-26 16:03 | Outpatient (REF) | payer MEDICARE, OTHER, SELFPAY ==
[2024-01-26 21:32] LABS: Anion Gap 9.3 mmol/L (3-11); BUN 16 mg/dL (7-18); CO2 29.7 mmol/L (21.0-32.0); CREATININE 1.2 mg/dL (0.70-1.30); Calcium 9.4 mg/dL (8.5-10.1); Chloride 101 mmol/L (98-107); Estimated GFR 67.11 (mL/min/1.73m2); Glucose 119 mg/dL (74-106); Potassium 3.6 mmol/L (3.5-5.1); Sodium 140 mmol/L (136-145)
[2024-01-26 21:38] LABS: Hemoglobin A1C 6.3 % (<5.7)
== END 2024-01-26 16:04 | disposition home or self-care (01) ==
LOC: NCHCN 16:03
PROVIDERS: PCP Physician Assistant; Visit Provider Physician Assistant
DX: R73.03 Prediabetes (principal); E87.6 Hypokalemia
CPT/HCPCS: 80048; 83036

== ENCOUNTER 2024-05-24 03:28 | Outpatient (CLI) | payer OTHER, SELFPAY ==
[2024-05-24 13:49] LABS: Anion Gap 7.1 mmol/L (3-11); BUN 10 mg/dL (7-18); CO2 31.9 mmol/L (21.0-32.0); CREATININE 0.9 mg/dL (0.70-1.30); Calcium 10.1 mg/dL (8.5-10.1); Chloride 102 mmol/L (98-107); Estimated GFR 94.78 (mL/min/1.73m2); Glucose 94 mg/dL (74-106); Sodium 141 mmol/L (136-145)
== END 2024-05-24 03:29 | disposition home or self-care (01) ==
PROVIDERS: PCP Physician Assistant; Visit Provider Registered Nurse
DX: E87.6 Hypokalemia (principal)
CPT/HCPCS: 36415; 80048

== ENCOUNTER 2024-06-28 01:15 | Outpatient (CLI) | payer MEDICARE, OTHER, SELFPAY ==
--- NOTE | 2024-06-28 | DI.US_ITS ---
Exam(s) US AAA SCREENING EXAM: US AAA SCREENING CLINICAL HISTORY: Ex-smoker, Z87.891 COMPARISON: CT CT CHEST/ABD/PEL W from 07/02/2023 FINDINGS: Abdominal Aorta: Proximal: 2.8 x 2.7 cm Mid: 2.0 x 2.5 cm Distal: 1.8 x 2.4 cm Iliac's: Right: 1.4 x 1.6 cm Left: 1.7 x 1.6 cm Atherosclerotic calcification is seen. IMPRESSION: No evidence of abdominal aortic aneurysm. DATA REPOSITORY:
== END 2024-06-28 01:35 ==
PROVIDERS: PCP Physician Assistant; Visit Provider Physician Assistant
DX: Z13.6 Encounter for screening for cardiovascular disorders (principal)
CPT/HCPCS: 76706